=== PATIENT | male | born 1995 | race Caucasian/White ===

== ENCOUNTER 2023-02-03 17:37 | Inpatient (IN) ==
--- NOTE | 2023-02-03 18:19 | XRay Report ---
XR chest 1V portable HISTORY: Chest pain, nonspecific COMPARISON: None. FINDINGS: The lungs are clear. Cardiac silhouette is normal in size. No pleural effusions. No pneumot horax. IMPRESSION: No acute process. ACT 112: Negative or not required by law. Electronically signed by: Carlos Lopez M.D. 02/03/2023 6:17 PM
[2023-02-03 19:04] LABS: Basophils # (auto) 0.05 K/uL (0-0.2); Basophils % (auto) 0.4 %; Eosinophils # (auto) 0.14 K/uL (0-0.50); Eosinophils % (auto) 1.2 %; Hematocrit (blood only) 37.2 % (42.0-52.0); Hemoglobin 12.8 g/dl (14.0-18.0); Immature Granulocytes # (auto) 0.04 K/uL (0.01-0.20); Immature Granulocytes % (auto) 0.3 %; Lymphocytes # (auto) 2.27 K/uL (1.2-3.4); Lymphocytes % (auto) 19.6 %; Mean Corpuscular Hemoglobin 29.4 pg (25.0-34.0); Mean Corpuscular Hgb Conc 34.4 g/dL (32.0-36.0); Mean Corpuscular Volume 85.5 fL (80.0-100.0); Mean Platelet Volume 10.3 fL (9.4-12.4); Monocytes % (auto) 6.9 %; Neutrophils # (auto) 8.28 K/uL (1.40-6.50); Neutrophils % (auto) 71.6 %; Platelet Count 212 K/uL (130-400); RDW Coefficient of Variation 12.4 % (11.5-14.5); RDW Standard Deviation 38.5 fL (36.4-46.3); Red Blood Count 4.35 M/uL (4.70-6.10); White Blood Count 11.58 K/ul (4.8-10.8)
[2023-02-03 19:18] LABS: Albumin Globulin Ratio 1.3 (0.9-2); Albumin Level 4.1 gm/dl (3.4-5.0); BUN Creatinine Ratio 10.3 (10-20); Bilirubin,Total 1.5 mg/dl (0.2-1.0); Calcium 9.1 mg/dl (8.6-10.3); Globulin 3.2 gm/dl (2.5-4.0); Magnesium 1.8 mg/dl (1.7-2.4); Potassium 3.7 mmol/L (3.5-5.1); Total Protein 7.3 gm/dl (6.0-8.3)
[2023-02-03 19:24] LABS: Troponin I High Sensitivity 32.8 pg/ml (0-20)
[2023-02-03 19:34] LABS: INR 1.2 (0.9-1.1); Partial Thromboplastin Time 28.9 Seconds (21.0-31.0)
[2023-02-03 19:38] LABS: Influenza A virus by PCR Negative (Neg); Influenza B virus by PCR Negative (Neg); RSV by PCR Negative (Neg); SARS CoV2 RNA(COVID-19) Ceph NEGATIVE (Negative)
[2023-02-03 19:52] LABS: D Dimer 780 ug/L FEU (0-500)
--- NOTE | 2023-02-03 20:29 | Emergency Department Note ---
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 Home Medications Medication Instructions Recorded Confirmed Type No Known Home Medications 02/03/23 02/03/23 History Allergies Allergy/AdvReac Type Severity Reaction Status Date / Time Sulfa (Sulfonamide Allergy Unknown Verified 02/03/23 22:24 Antibiotics) Past Med/Surg History Medical History No pertinent past medical history Surgical History No pertinent past surgical history Family History (Updated 02/03/23 @ 22:59 by Jorge Rawls MD) Father Coronary heart disease Social History (Updated 02/03/23 @ 22:58 by Jorge Rawls MD) Smoking Status: Current every day smoker packs per day: 1; Hx Alcohol Use: Yes Alcohol Intake Frequency Comment: occasional Preferred Language: Latvian Feels Safe at Home: Yes Physical Exam Vital Signs Vital Signs - 24 hr 02/03/23 17:40 02/03/23 18:07 02/03/23 18:26 Temperature 36.7 C Temperature Source Temporal Artery Scan Pulse Rate 67 67 Pulse Rate [Apical] 64 Pulse Rate from SpO2 Sensor Respiratory Rate 18 18 Respiratory Effort / Characteristics Non-Labored Non-Labored Spontaneous Respiratory Depth Normal Normal Respiratory Pattern Regular Regular Blood Pressure 146/80 H Blood Pressure [Right Radial Artery] 113/45 L Blood Pressure Mean 102 Blood Pressure Mean [Right Radial Artery] 67 Blood Pressure Position Sitting Blood Pressure Position [Right Radial Artery] Lying Pulse Oximetry 97 98 Oxygen Delivery Method Room Air Room Air Sepsis Recent Fever Within 48 Hours No Sepsis New/Unexplained Change in Mental Status No Sepsis Action Taken by Nursing No Action Required 02/03/23 18:26 02/03/23 18:42 02/03/23 21:26 Temperature 38.2 C H Temperature Source Oral Pulse Rate Pulse Rate [Apical] Pulse Rate from SpO2 Sensor Respiratory Rate Respiratory Effort / Characteristics Respiratory Depth Respiratory Pattern Blood Pressure Blood Pressure [Right Radial Artery] Blood Pressure Mean Blood Pressure Mean [Right Radial Artery] Blood Pressure Position Blood Pressure Position [Right Radial Artery] Pulse Oximetry 98 98 Oxygen Delivery Method Room Air Room Air Sepsis Recent Fever Within 48 Hours Sepsis New/Unexplained Change in Mental Status Sepsis Action Taken by Nursing 02/03/23 18:01 02/03/23 18:28 02/03/23 18:28 Temperature Temperature Source Pulse Rate 67 68 Pulse Rate [Apical] Pulse Rate from SpO2 Sensor 67 67 Respiratory Rate 28 H 15 Respiratory Effort / Characteristics Respiratory Depth Respiratory Pattern Blood Pressure 113/45 L Blood Pressure [Right Radial Artery] Blood Pressure Mean 74 Blood Pressure Mean [Right Radial Artery] Blood Pressure Position Blood Pressure Position [Right Radial Artery] Pulse Oximetry 98 97 Oxygen Delivery Method Sepsis Recent Fever Within 48 Hours Sepsis New/Unexplained Change in Mental Status Sepsis Action Taken by Nursing 02/03/23 18:30 02/03/23 19:00 02/03/23 20:30 Temperature Temperature Source Pulse Rate 65 64 65 Pulse Rate [Apical] Pulse Rate from SpO2 Sensor 64 64 65 Respiratory Rate 27 H 12 18 Respiratory Effort / Characteristics Respiratory Depth Respiratory Pattern Blood Pressure 117/56 L 108/64 Blood Pressure [Right Radial Artery] Blood Pressure Mean 76 78 Blood Pressure Mean [Right Radial Artery] Blood Pressure Position Blood Pressure Position [Right Radial Artery] Pulse Oximetry 97 98 98 Oxygen Delivery Method Sepsis Recent Fever Within 48 Hours Sepsis New/Unexplained Change in Mental Status Sepsis Action Taken by Nursing 02/03/23 21:21 02/03/23 21:56 Temperature Temperature Source Pulse Rate 63 65 Pulse Rate [Apical] Pulse Rate from SpO2 Sensor Respiratory Rate 22 Respiratory Effort / Characteristics Respiratory Depth Respiratory Pattern Blood Pressure 102/63 Blood Pressure [Right Radial Artery] Blood Pressure Mean 76 Blood Pressure Mean [Right Radial Artery] Blood Pressure Position Blood Pressure Position [Right Radial Artery] Pulse Oximetry Oxygen Delivery Method Sepsis Recent Fever Within 48 Hours Sepsis New/Unexplained Change in Mental Status Sepsis Action Taken by Nursing Physical Exam GENERAL: oriented to person, place, and time. appears well-developed and well- nourished. HENT: Exam performed. - Head: Normocephalic and atraumatic. EYES: Conjunctivae and EOM are normal. Right eye exhibits no discharge. Left eye exhibits no discharge. No scleral icterus. NECK: Normal range of motion. Neck supple. No JVD present. CV: Normal rate, regular rhythm, normal heart sounds and intact distal pulses. There is no peripheral edema. Palpable radial pulses bue. PULM/CHEST: Effort normal and breath sounds normal. No respiratory distress. No stridor. no wheezes. no rales. ABD: The abdomen is soft. There is no tenderness. NEURO: Motor and sensation grossly intact. SKIN: Skin is warm and dry. He is not diaphoretic. PSYCH: normal mood and affect. Behavior is normal. Judgment and thought content normal. Course Course 1756: The patient was evaluated in room B6. A complete history and physical exam was performed Cardiac monitoring: An order was placed for continuous cardiac monitoring. The monitor shows a rate of 60 with sinus rhythm interpreted by me 2010: Vital signs stable. Labs within normal limits with exception of elevated troponin and elevated D-dimer. CTA of the chest is pending patient's EKGs do show a conduction delay a possible sinus arrhythmia versus heart block. Discussed with cardiology Dr. Rabago who states he does think that the patient has a heart block with a narrow complex. 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 2135: Patient is now febrile. Lyme screen positive. Patient be treated with Rocephin 2 g IV piggyback. 2199: CT of the chest negative. Patient will be admitted to the [facility] team Dr. Rawls aware. Administered Medications Discontinued Medications Acetaminophen (Acetaminophen 500 Mg Tab) 1,000 mg PO NOW STA Stop: 02/03/23 21:32 Last Admin: 02/03/23 21:39 Dose: 1,000 mg Documented By: RUT Ceftriaxone Sodium (Rocephin) 2,000 mg in 70 mls @ 140 mls/hr IV NOW STA Stop: 02/03/23 21:47 Last Infusion: 02/03/23 22:33 Dose: 0 mls/hr Documented By: Admin: 02/03/23 21:43 Dose: 140 mls/hr Documented By: RUT Ioversol (Ioversol 350 Mg 125ml Prefilled Syringe) 119 ml IV ONCE ONE Stop: 02/03/23 20:43 Last Admin: 02/03/23 20:42 Dose: 119 ml Documented By: SHANNAN Medical Decision Making Laboratory Data Attestation: I reviewed the patient's lab results. 02/03/23 17:50 02/03/23 17:50 Labs: Lab Results 02/03/23 02/03/23 02/03/23 Range/Units 17:50 17:50 17:50 WBC 11.58 H (4.8-10.8) K/ul RBC 4.35 L (4.70-6.10) M/uL Hgb 12.8 L (14.0-18.0) g/dl Hct 37.2 L (42.0-52.0) % MCV 85.5 (80.0-100.0) fL MCH 29.4 (25.0-34.0) pg MCHC 34.4 (32.0-36.0) g/dL RDW Std Deviation 38.5 (36.4-46.3) fL RDW Coeff of Debby 12.4 (11.5-14.5) % Plt Count 212 (130-400) K/uL MPV 10.3 (9.4-12.4) fL Immature Gran % (Auto) 0.3 % Neut % (Auto) 71.6 % Lymph % (Auto) 19.6 % [place] % (Auto) 6.9 % Eos % (Auto) 1.2 % Baso % (Auto) 0.4 % Neut # (Auto) 8.28 H (1.40-6.50) K/uL Lymph # (Auto) 2.27 (1.2-3.4) K/uL [place] # (Auto) 0.80 H (0.11-0.59) K/uL Eos # (Auto) 0.14 (0-0.50) K/uL Baso # (Auto) 0.05 (0-0.2) K/uL Immature Gran # (Auto) 0.04 (0.01-0.20) K/uL PT 13.0 H (9.0-12.0) Seconds INR 1.2 H (0.9-1.1) APTT 28.9 (21.0-31.0) Seconds PTT Ratio 1.0 D-Dimer 780 H* (0-500) ug/L FEU Sodium 135 L (136-145) mmol/L Potassium 3.7 (3.5-5.1) mmol/L Chloride 104 (98-107) mmol/L Carbon Dioxide 22 (21-32) mmol/L Anion Gap 9 (3-11) BUN 9 (6-23) mg/dl Creatinine 0.87 (0.6-1.4) mg/dl Est Cr Clr Drug Dosing 192.0 ml/min Est GFR ( Amer) 139.0 ml/min Est GFR (Non-Af Amer) 120.0 ml/min BUN/Creatinine Ratio 10.3 (10-20) Glucose 98 (70-99(Fasting)) mg/dl Calcium 9.1 (8.6-10.3) mg/dl Magnesium 1.8 (1.7-2.4) mg/dl Total Bilirubin 1.5 H (0.2-1.0) mg/dl AST 16 (13-39) U/L ALT 24 (7-52) U/L Alkaline Phosphatase 121 H (34-104) U/L Troponin I High Sens 32.8 H (0-20) pg/ml Total Protein 7.3 (6.0-8.3) gm/dl Albumin 4.1 (3.4-5.0) gm/dl Globulin 3.2 (2.5-4.0) gm/dl Albumin/Globulin Ratio 1.3 (0.9-2) Lyme Disease IgG Ab (Negative) Lyme Disease IgM Ab (Negative) SARS-CoV-2 (PCR) (Negative) Influenza Type A (PCR) (Neg) Influenza Type B (PCR) (Neg) RSV (RT-PCR) (Neg) 02/03/23 02/03/23 Range/Units 17:50 18:42 WBC (4.8-10.8) K/ul RBC (4.70-6.10) M/uL Hgb (14.0-18.0) g/dl Hct (42.0-52.0) % MCV (80.0-100.0) fL MCH (25.0-34.0) pg MCHC (32.0-36.0) g/dL RDW Std Deviation (36.4-46.3) fL RDW Coeff of Debby (11.5-14.5) % Plt Count (130-400) K/uL MPV (9.4-12.4) fL Immature Gran % (Auto) % Neut % (Auto) % Lymph % (Auto) % [place] % (Auto) % Eos % (Auto) % Baso % (Auto) % Neut # (Auto) (1.40-6.50) K/uL Lymph # (Auto) (1.2-3.4) K/uL [place] # (Auto) (0.11-0.59) K/uL Eos # (Auto) (0-0.50) K/uL Baso # (Auto) (0-0.2) K/uL Immature Gran # (Auto) (0.01-0.20) K/uL PT (9.0-12.0) Seconds INR (0.9-1.1) APTT (21.0-31.0) Seconds PTT Ratio D-Dimer (0-500) ug/L FEU Sodium (136-145) mmol/L Potassium (3.5-5.1) mmol/L Chloride (98-107) mmol/L Carbon Dioxide (21-32) mmol/L Anion Gap (3-11) BUN (6-23) mg/dl Creatinine (0.6-1.4) mg/dl Est Cr Clr Drug Dosing ml/min Est GFR ( Amer) ml/min Est GFR (Non-Af Amer) ml/min BUN/Creatinine Ratio (10-20) Glucose (70-99(Fasting)) mg/dl Calcium (8.6-10.3) mg/dl Magnesium (1.7-2.4) mg/dl Total Bilirubin (0.2-1.0) mg/dl AST (13-39) U/L ALT (7-52) U/L Alkaline Phosphatase (34-104) U/L Troponin I High Sens (0-20) pg/ml Total Protein (6.0-8.3) gm/dl Albumin (3.4-5.0) gm/dl Globulin (2.5-4.0) gm/dl Albumin/Globulin Ratio (0.9-2) Lyme Disease IgG Ab Positive A (Negative) Lyme Disease IgM Ab Positive A (Negative) SARS-CoV-2 (PCR) NEGATIVE (Negative) Influenza Type A (PCR) Negative (Neg) Influenza Type B (PCR) Negative (Neg) RSV (RT-PCR) Negative (Neg) ECG Data Attestation: I personally reviewed and interpreted this ECG as follows: Additional Comments: EKG #1 at 1750: Sinus arrhythmia with rate of 67. QRS and QTc intervals within normal limits. No ST elevation or ST depression. EKG #2 at 1848: Sinus arrhythmia with rate of 66. QRS and QTc intervals within normal limits. No ST elevation or ST depression. EKG #3 at 1936: Sinus arrhythmia with conduction delay sinus arrythmia vs heart block. Ventricular rate of 65. QRS [address] elevation or ST depression. MDM Narrative 1757: The patient was evaluated in room B6. A complete history and physical exam was performed Cardiac monitoring: An order was placed for continuous cardiac monitoring. The monitor shows a rate of 60 with sinus rhythm interpreted by me 2010: Vital signs stable. Labs within normal limits with exception of elevated troponin and elevated D-dimer. CTA of the chest is pending patient's EKGs do show a conduction delay a possible sinus arrhythmia versus heart block. Discussed with cardiology Dr. Rabago who states he does think that the patient has a heart block with a narrow complex. 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 2135: Patient is now febrile. Lyme screen positive. Patient be treated with Rocephin 2 g IV piggyback. 2199: CT of the chest negative. Patient will be admitted to the [facility] team Dr. Sinai villela. Impression & Plan Lyme carditis, Heart block Discharge Plan Visit Data Chief Complaint: Shortness of Breath/Dyspnea Stated Complaint: SOB,CHEST TIGHTNESS,DIZZY ED Provider: Brady Coleman Discharge Problem: Lyme carditis, Heart block Patient Disposition: Admitted As Inpatient Forms Stand Alone Forms: [employer] Prescriptions Prescriptions: No Action No Known Home Medications Referrals Referrals: PCP,NO [Primary Care Provider] -
[2023-02-03] MEDS ORDERED: IOVERSOL 350 MG 125mL Prefilled Syringe IV ONE (20:42)
[2023-02-03 21:09] LABS: Lyme Ab IgG w/WB Rflx Positive (Negative); Lyme Ab IgM w/WB Rflx Positive (Negative)
[2023-02-03] MEDS ORDERED: cefTRIAXone SODIUM 2,000 MG/70 ML BAG IV STA (21:18)
[2023-02-03] MEDS ORDERED: ACETAMINOPHEN 500 MG TAB PO STA (21:31)
--- NOTE | 2023-02-03 21:40 | CT Scan Report ---
Exam(s): CTA CHEST IV Amt: 119ml EXAM: CT Angiography Chest With Intravenous Contrast CLINICAL HISTORY: Reason for exam: ro Pe. TECHNIQUE: Axial computed tomographic angiography images of the chest with intravenous contrast. CTDI is 28.14 mGy and DLP is 908.81 mGy-cm. Automated exposure control was utilized for the study. A dose lowering technique was utilized adhering to the principles of ALARA. MIP reconstructed images were created and reviewed. COMPARISON: No relevant prior studies available. FINDINGS: Pulmonary arteries: No evidence for pulmonary embolism. Aorta: No acute findings. No thoracic aortic aneurysm. Lungs: Expiratory lung volumes. Scattered ground-glass areas of attenuation are noted. No focal airspace consolidation. Pleural space: Unremarkable. No significant effusion. No pneumothorax. Heart: Unremarkable. No cardiomegaly. No significant pericardial effusion. Mediastinum: Trace residual thymic tissue noted. Bones/joints: No acute fracture. No dislocation. Soft tissues: Unremarkable. Lymph nodes: Unremarkable. No enlarged lymph nodes. IMPRESSION: 1. No evidence for pulmonary embolism. 2. Scattered ground-glass areas of attenuation are presumed subsegmental atelectasis and related to expiratory lung volumes. No focal airspace consolidation. No pleural effusion or pneumothorax. Electronically signed by: Salvatore Veronica MD 02/03/23 21:39 PM
--- NOTE | 2023-02-03 23:04 | History & Physical Report ---
Date of Service February 03, 2023 Assessment & Plan (1) Lyme carditis: Plan: 26-year-old old male presents with shortness with exertion chest tightness and palpitations and EKG showing sinus sinus arrhythmia versus heart block. ER discussed with the cardiology and guardian thinks most heart block and Lyme carditis and his Lyme screen came back positive. Lyme carditis Lyme screen positive Sinus arrhythmia versus heart block started on IV Rocephin and Doxy D-dimer is elevated but CT chest unremarkable Mild elevation of troponin most likely demand ischemia we will follow serial enzymes and echocardiogram Close monitoring telemetry floor DVT prophylaxis SCDs Disposition telemetry floor Full code History of Present Illness Chief Complaint: Shortness of breath and chest pains Primary Care Provider: NO PCP 27-year-old male with no significant past medical history presents with shortness of breath on exertion, dizziness and chest tightness since yesterday. When he stays to ambulate he feels like he is heart is pounding. He had temp spike in the ER. Lyme screen came back positive. Patient denies any tick bites but [place]. Denies any headache. Has some neck pain since yesterday. Vision is okay. No runny nose or sore throat or cough. No nausea. Appetite is okay. No abdominal pain. Normal bowel and bladder movements. Allergies Allergy/AdvReac Type Severity Reaction Status Date / Time Sulfa (Sulfonamide Allergy Unknown Verified 02/03/23 22:24 Antibiotics) Home Medications Medication Instructions Recorded Confirmed Type No Known Home Medications 02/03/23 02/03/23 History Past Med/Surg History Medical History No pertinent past medical history Surgical History No pertinent past surgical history Family History (Updated 02/03/23 @ 22:59 by Jorge Rawls MD) Father Coronary heart disease Social History (Updated 02/03/23 @ 22:58 by Jorge Rawls MD) Smoking Status: Current every day smoker packs per day: 1; Hx Alcohol Use: Yes Alcohol Intake Frequency Comment: occasional Preferred Language: Bengali Feels Safe at Home: Yes Review of Systems Review of Systems: All systems reviewed & are unremarkable except as noted in Subjective Physical Exam Physical Exam: General- Not in distress Head- atraumatic Eyes- PERRLA ENT- oropharynx clear Neck- supple, no JVD, Lungs- clear to auscultation and percussion, no added sounds Heart- regular rhythm; no murmur, no gallop, Abdomen- normal bowel sounds, soft, nontender, no distension Extremities- no pretibial edema, no erythema seen Neuro- alert, oriented x 3; PERRL, no facial palsy; no dysarthria; moves extremities. Skin- warm & dry blotches of erythematosus rash seen on lower extremities Results & Data Results & Data Vital Signs (Past 12 Hours) Vital Signs Temp Pulse Pulse Resp BP BP Pulse Ox 02/03/23 21:56 65 02/03/23 21:21 63 22 102/63 02/03/23 20:30 65 18 108/64 98 02/03/23 19:00 64 12 117/56 L 98 02/03/23 18:30 65 27 H 97 02/03/23 18:28 113/45 L 02/03/23 18:28 68 15 97 02/03/23 18:01 67 28 H 98 02/03/23 21:26 38.2 C H 02/03/23 18:42 98 02/03/23 18:26 98 02/03/23 18:26 64 18 113/45 L 98 02/03/23 18:07 67 02/03/23 17:40 36.7 C 67 18 146/80 H 97 O2 Del Method 02/03/23 21:56 02/03/23 21:21 02/03/23 20:30 02/03/23 19:00 02/03/23 18:30 02/03/23 18:28 02/03/23 18:28 02/03/23 18:01 02/03/23 21:26 02/03/23 18:42 Room Air 02/03/23 18:26 Room Air 02/03/23 18:26 Room Air 02/03/23 18:07 02/03/23 17:40 Room Air Diagnostic Findings Laboratory Results WBC 11.58 K/ul (4.8-10.8) H 02/03/23 17:50 RBC 4.35 M/uL (4.70-6.10) L 02/03/23 17:50 Hgb 12.8 g/dl (14.0-18.0) L 02/03/23 17:50 Hct 37.2 % (42.0-52.0) L 02/03/23 17:50 MCV 85.5 fL (80.0-100.0) 02/03/23 17:50 MCH 29.4 pg (25.0-34.0) 02/03/23 17:50 MCHC 34.4 g/dL (32.0-36.0) 02/03/23 17:50 RDW Std Deviation 38.5 fL (36.4-46.3) 02/03/23 17:50 RDW Coeff of Debby 12.4 % (11.5-14.5) 02/03/23 17:50 Plt Count 212 K/uL (130-400) 02/03/23 17:50 MPV 10.3 fL (9.4-12.4) 02/03/23 17:50 Immature Gran % (Auto) 0.3 % 02/03/23 17:50 Neut % (Auto) 71.6 % 02/03/23 17:50 Lymph % (Auto) 19.6 % 02/03/23 17:50 [place] % (Auto) 6.9 % 02/03/23 17:50 Eos % (Auto) 1.2 % 02/03/23 17:50 Baso % (Auto) 0.4 % 02/03/23 17:50 Neut # (Auto) 8.28 K/uL (1.40-6.50) H 02/03/23 17:50 Lymph # (Auto) 2.27 K/uL (1.2-3.4) 02/03/23 17:50 [place] # (Auto) 0.80 K/uL (0.11-0.59) H 02/03/23 17:50 Eos # (Auto) 0.14 K/uL (0-0.50) 02/03/23 17:50 Baso # (Auto) 0.05 K/uL (0-0.2) 02/03/23 17:50 Immature Gran # (Auto) 0.04 K/uL (0.01-0.20) 02/03/23 17:50 PT 13.0 Seconds (9.0-12.0) H 02/03/23 17:50 INR 1.2 (0.9-1.1) H 02/03/23 17:50 APTT 28.9 Seconds (21.0-31.0) 02/03/23 17:50 PTT Ratio 1.0 02/03/23 17:50 D-Dimer 780 ug/L FEU (0-500) H* 02/03/23 17:50 Sodium 135 mmol/L (136-145) L 02/03/23 17:50 Potassium 3.7 mmol/L (3.5-5.1) 02/03/23 17:50 Chloride 104 mmol/L (98-107) 02/03/23 17:50 Carbon Dioxide 22 mmol/L (21-32) 02/03/23 17:50 Anion Gap 9 (3-11) 02/03/23 17:50 BUN 9 mg/dl (6-23) 02/03/23 17:50 Creatinine 0.87 mg/dl (0.6-1.4) 02/03/23 17:50 Est Cr Clr Drug Dosing 192.0 ml/min 02/03/23 17:50 Est GFR ( Amer) 139.0 ml/min 02/03/23 17:50 Est GFR (Non-Af Amer) 120.0 ml/min 02/03/23 17:50 BUN/Creatinine Ratio 10.3 (10-20) 02/03/23 17:50 Glucose 98 mg/dl (70-99(Fasting)) 02/03/23 17:50 Calcium 9.1 mg/dl (8.6-10.3) 02/03/23 17:50 Magnesium 1.8 mg/dl (1.7-2.4) 02/03/23 17:50 Total Bilirubin 1.5 mg/dl (0.2-1.0) H 02/03/23 17:50 AST 16 U/L (13-39) 02/03/23 17:50 ALT 24 U/L (7-52) 02/03/23 17:50 Alkaline Phosphatase 121 U/L (34-104) H 02/03/23 17:50 Troponin I High Sens 32.8 pg/ml (0-20) H 02/03/23 17:50 Total Protein 7.3 gm/dl (6.0-8.3) 02/03/23 17:50 Albumin 4.1 gm/dl (3.4-5.0) 02/03/23 17:50 Globulin 3.2 gm/dl (2.5-4.0) 02/03/23 17:50 Albumin/Globulin Ratio 1.3 (0.9-2) 02/03/23 17:50 Lyme Disease IgG Ab Positive (Negative) A 02/03/23 17:50 Lyme Disease IgM Ab Positive (Negative) A 02/03/23 17:50 SARS-CoV-2 (PCR) NEGATIVE (Negative) 02/03/23 18:42 Influenza Type A (PCR) Negative (Neg) 02/03/23 18:42 Influenza Type B (PCR) Negative (Neg) 02/03/23 18:42 RSV (RT-PCR) Negative (Neg) 02/03/23 18:42 Impressions Chest X-Ray 02/03/23 17:42 XR chest 1V portable HISTORY: Chest pain, nonspecific COMPARISON: None. FINDINGS: The lungs are clear. Cardiac silhouette is normal in size. No pleural effusions. No pneumothorax. IMPRESSION: No acute process. ACT 112: Negative or not required by law. Electronically signed by: Carlos Lopez M.D. 02/03/2023 6:17 PM Chest CTA 02/03/23 19:54 Exam(s): CTA CHEST IV Amt: 119ml EXAM: CT Angiography Chest With Intravenous Contrast CLINICAL HISTORY: Reason for exam: ro Pe. TECHNIQUE: Axial computed tomographic angiography images of the chest with intravenous contrast. CTDI is 28.14 mGy and DLP is 908.81 mGy-cm. Automated exposure control was utilized for the study. A dose lowering technique was utilized adhering to the principles of ALARA. MIP reconstructed images were created and reviewed. COMPARISON: No relevant prior studies available. FINDINGS: Pulmonary arteries: No evidence for pulmonary embolism. Aorta: No acute findings. No thoracic aortic aneurysm. Lungs: Expiratory lung volumes. Scattered ground-glass areas of attenuation are noted. No focal airspace consolidation. Pleural space: Unremarkable. No significant effusion. No pneumothorax. Heart: Unremarkable. No cardiomegaly. No significant pericardial effusion. Mediastinum: Trace residual thymic tissue noted. Bones/joints: No acute fracture. No dislocation. Soft tissues: Unremarkable. Lymph nodes: Unremarkable. No enlarged lymph nodes. IMPRESSION: 1. No evidence for pulmonary embolism. 2. Scattered ground-glass areas of attenuation are presumed subsegmental atelectasis and related to expiratory lung volumes. No focal airspace consolidation. No pleural effusion or pneumothorax. Electronically signed by: Salvatore Veronica MD 02/03/23 21:39 PM ECG Additional Comments: ECG sinus arrhythmia with A-V dissociation and actually junctional rhythm rate of 67 Code Status & VTE Plan VTE Prophylaxis Plan VTE Prophylaxis will be ordered: Yes
[2023-02-04] MEDS ORDERED: NITROGLYCERIN SL 0.4 MG/TAB TAB SL PRN (00:20)
[2023-02-04] MEDS: SODIUM CHLORIDE 0.9% 1000ML 1,000 ML IV SCH ×2 (00:38→16:25)
[2023-02-04] MEDS: DOXYCYCLINE HYCLATE 100 MG in DEXTROSE 5% 100 ML IV SCH ×3 (01:11→20:41)
[2023-02-04 06:16] LABS: Basophils # (auto) 0.04 K/uL (0-0.2); Basophils % (auto) 0.4 %; Eosinophils # (auto) 0.12 K/uL (0-0.50); Eosinophils % (auto) 1.2 %; Hematocrit (blood only) 38.4 % (42.0-52.0); Hemoglobin 12.8 g/dl (14.0-18.0); Immature Granulocytes # (auto) 0.04 K/uL (0.01-0.20); Immature Granulocytes % (auto) 0.4 %; Lymphocytes # (auto) 1.68 K/uL (1.2-3.4); Lymphocytes % (auto) 16.2 %; Mean Corpuscular Hgb Conc 33.3 g/dL (32.0-36.0); Mean Corpuscular Volume 87.1 fL (80.0-100.0); Mean Platelet Volume 10.3 fL (9.4-12.4); Monocytes # (auto) 0.68 K/uL (0.11-0.59); Monocytes % (auto) 6.6 %; Neutrophils # (auto) 7.79 K/uL (1.40-6.50); Neutrophils % (auto) 75.2 %; Platelet Count 203 K/uL (130-400); RDW Coefficient of Variation 12.8 % (11.5-14.5); RDW Standard Deviation 40.4 fL (36.4-46.3); Red Blood Count 4.41 M/uL (4.70-6.10); White Blood Count 10.35 K/ul (4.8-10.8)
[2023-02-04 06:22] LABS: BUN Creatinine Ratio 11.8 (10-20); Calcium 8.9 mg/dl (8.6-10.3); Creatinine Clr Calc Pharmacy 179.6 ml/min; Est GFR (African American) 131.8 ml/min; Est GFR (Non-African American) 113.7 ml/min; Magnesium 1.9 mg/dl (1.7-2.4); Potassium 4.3 mmol/L (3.5-5.1)
[2023-02-04 06:33] LABS: Troponin I High Sensitivity 22.4 pg/ml (0-20)
--- NOTE | 2023-02-04 08:55 | Cardiology Consultation ---
Date of Consultation February 04, 2023 Assessment & Plan (1) Heart block: (2) Lyme carditis: Plan 27 year old male admitted with activity related shortness of breath, dizziness, chest tightness, heart pounding, and shortness of breath. Examination with erythema migrans type rash on the mid left back with workup highly suggestive of Lyme disease with associated atrioventricular block and mild myopericarditis. EKG's with AV dissociation with accelerated junctional rhythm. Echocardiography OK. Patient requires hospitalization, continuous telemetry monitoring, and IV antibiotic administration (2 grams Ceftriaxone) until the high degree AV block resolves and the TN interval is less than 300 msec then oral doxycycline x 21 days. Check EKG daily. Recommend pacer pads on patient. Temporary venous pacer not needed at this point. Supervising Physician Co-Signing Physician Notes Attending Staff: Pt was seen and examined with Ap Staff. Concur with observations and plans. 50 min spent addressing patient's challenges, educating and/or advancing daily plan of care 27 yo man Bradycardia EKG compatible with Complete Heart Block w/ junctional escape SBP is WNL No syncope Lyme IgM + Target lesion on back Plans for ABX to treat acute Lyme Disease ECHO - preliminary - no evidence of Cardiomyopathy of severe valvular pathology No evidence of Heart Failure No Pauses on Telemetry Plans to place PADs in the event of emergent need for transcutaneous pacing Atropine at bedside Limited ambulation DVT PPX K+ goal 4.5-5 Mag++ goal >2 Check TSH Surjit Srivastava History of Present Illness Reason for Consultation: Lyme carditis Requesting Physician: Dr. Cristiano Mosley Attending Physician: Cristiano Mosley MD History of Present Illness Mr. Chacorta Kaiser is a very pleasant 27 year old male who presented to the [facility] ER on 02/03/2023 with complaints of activity related shortness of breath, dizziness, chest tightness, heart pounding, and shortness of breath that have progressed over the last couple of days. He is comfortable at rest. EKG on presentation revealed AV dissociation with an accelerated junctional rhythm. A second EKG on 02/03/2023 revealed AV dissociation with an accelerated junctional rhythm. High sensitivity Troponin I elevated at 32.8 then 22.4 pg/mL. Chest x- ray was without acute process. Elevated D-dimer lead to a CTA of the chest showing no evidence for pulmonary embolism, revealing scattered ground-glass areas of attenuation are presumed subsegmental atelectasis and related to expiratory lung volumes. No focal airspace consolidation. No pleural effusion or pneumothorax. No syncope. Patient denies fevers or chills though was notably febrile at 38.2 in the ER and 37.7 today at 07:35. Denies tick bit or rash. He is a reformed smoker as of three days ago, smoking 1 ppd since the age of 18. No alcohol. No illegal drug use. No OTC therapies or medications. + History of a heart murmur as a child. No other cardiac history. Past Medical and Surgical History: None. Family History: + For CAD in his father, detailed unknown. Social History: Reformed smoker as of 3 days ago, smoking 1 ppd since the age of 18. Rare social alcohol. No illegal drug use. . Two children. 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 Complete Review of Systems: Constitutional: No change in weight. Denies fevers or chills. HENT: No amaurosis fugax. Ear infections as a child. Pulmonary: No history of sleep apnea, pulmonary embolism, or asthma. Cardiac: Heart murmur as a child. GI/Abd: No dysphagia, pain, melana or hematochezia. No significant heartburn. Denies liver problems. Denies kidney problems Vascular: Negative. Hematologic: No known coagulation disorder, anemia, or abnormal bleeding. Musculoskeletal: Hip pain last month, resolved. Skin: No rash. Neurologic: No history of seizure. No history of TIA. No CVA. Male : Negative. Endocrine: Denies history of thyroid problems or diabetes. Allergies Allergy/AdvReac Type Severity Reaction Status Date / Time Sulfa (Sulfonamide Allergy Unknown Verified 02/03/23 22:24 Antibiotics) Home Medications Medication Instructions Recorded Confirmed Type No Known Home Medications 02/03/23 02/03/23 History Patient History Medical History No pertinent past medical history Surgical History No pertinent past surgical history Family History Father Coronary heart disease Social History Smoking Status: Former smoker packs per day: 1; Smoking End Date: 2 days ago; Hx Alcohol Use: Yes Alcohol type: beer and hard liquor Alcohol Intake Frequency Comment: occasional Hx Substance Use: No Preferred Language: Senegalese Communication Ability: Effective Cutter Machine Required: No Beliefs That Will Affect Care: None Current Living Situation: Spouse Other Information That Helps Us Care for You: No Feels Safe at Home: Yes Safety Concerns: Feels Safe At This Time Review of Systems Review of Systems: Complete Review of Systems is as stated above, negative, or noncontributory. Physical Exam Physical Exam: General: A&Ox3. NAD. Skin: + Erythema migrans rash on left mid to upper back. HENT: Normocephalic. Atraumatic. Eyes: PER. Conjunctiva pink, sclera clear. Neck: No carotid bruits. Normal JVP. No HJR. Heart: Somewhat distant heart sounds. Irregular with an occasional ectopic beat, 60 bpm. No murmur. PMI is nondisplaced. Lungs: Clear to auscultation. Abdomen: +BS. Soft. Nontender. No masses or organomegaly. Extremities: + Two circular rashes on the left lower extremity. No clubbing. No cyanosis. No edema. Limited neurological examination is without focal deficits. Pulses: radial=2/4, posterior tibial=2/4. Results & Data Vital Signs (Past 12 Hours) Vital Signs Temp Pulse Pulse Resp BP BP Pulse Ox 02/04/23 07:35 37.7 C H 98 H 20 95/67 L 97 02/04/23 07:35 73 02/04/23 03:06 36.7 C 67 20 130/80 96 02/04/23 00:20 63 02/04/23 00:16 37.1 C 63 18 137/76 98 02/03/23 23:30 63 24 116/54 L 97 02/03/23 23:00 62 23 97 02/03/23 22:31 64 22 123/49 L 98 02/03/23 22:30 64 21 98 02/03/23 22:00 64 23 112/61 98 02/03/23 21:30 64 15 101/57 L 100 02/03/23 21:56 65 02/03/23 21:21 63 22 102/63 08/04/23 21:26 38.2 C H O2 Del Method 02/04/23 07:35 Room Air 02/04/23 07:35 02/04/23 03:06 Room Air 02/04/23 00:20 02/04/23 00:16 Room Air 02/03/23 23:30 02/03/23 23:00 02/03/23 22:31 02/03/23 22:30 02/03/23 22:00 02/03/23 21:30 02/03/23 21:56 02/03/23 21:21 02/03/23 21:26 Laboratory Results Cardiac Enzymes 02/03/23 02/04/23 Range/Units 17:50 05:37 AST 16 (13-39) U/L Troponin I High Sens 32.8 H 22.4 H D (0-20) pg/ml Coagulation 02/03/23 Range/Units 17:50 PT 13.0 H (9.0-12.0) Seconds APTT 28.9 (21.0-31.0) Seconds CBC 02/03/23 02/04/23 Range/Units 17:50 05:37 WBC 11.58 H 10.35 (4.8-10.8) K/ul RBC 4.35 L 4.41 L (4.70-6.10) M/uL Hgb 12.8 L 12.8 L (14.0-18.0) g/dl Hct 37.2 L 38.4 L (42.0-52.0) % Plt Count 212 203 (130-400) K/uL Neut # (Auto) 8.28 H 7.79 H (1.40-6.50) K/uL Lymph # (Auto) 2.27 1.68 (1.2-3.4) K/uL [place] # (Auto) 0.80 H 0.68 H (0.11-0.59) K/uL Eos # (Auto) 0.14 0.12 (0-0.50) K/uL Baso # (Auto) 0.05 0.04 (0-0.2) K/uL Comprehensive Metabolic Panel 02/03/23 02/04/23 Range/Units 17:50 05:37 Sodium 135 L 137 (136-145) mmol/L Potassium 3.7 4.3 (3.5-5.1) mmol/L Chloride 104 105 (98-107) mmol/L Carbon Dioxide 22 27 (21-32) mmol/L BUN 9 11 (6-23) mg/dl Creatinine 0.87 0.93 (0.6-1.4) mg/dl Glucose 98 101 H (70-99(Fasting)) mg/dl Calcium 9.1 8.9 (8.6-10.3) mg/dl AST 16 (13-39) U/L ALT 24 (7-52) U/L Alkaline Phosphatase 121 H (34-104) U/L Total Protein 7.3 (6.0-8.3) gm/dl Albumin 4.1 (3.4-5.0) gm/dl Intake and Output 02/03/23 02/04/23 02/04/23 22:59 06:59 14:59 Intake Total 70 / 180 110 / 180 Balance 70 / 180 110 / 180 Intake: IV 70 / 180 110 / 180 Doxycycline Hyclate 100 mg In 110 / 110 Dextrose 5% 100 ml @ 50 mls/hr IV Q12H [facility] Rx#:[id number] cefTRIAXone SODIUM 2,000 mg In 70 / 70 70 ml @ 140 mls/hr IV NOW STA Rx#:[id number] Other: # Unmeasured Voids 1 Weight 145 kg 145 kg Weight Measurement Method Chair Scale Built in [facility]
[2023-02-04] MEDS ORDERED: ATROPINE SULFATE 0.1 MG/ML 10ML SYR IV ONE (16:58)
--- NOTE | 2023-02-04 17:29 | Hospitalist Progress Note ---
Date of Service February 04, 2023 Assessment & Plan (1) Heart block: (2) Lyme carditis: Plan: Lyme carditis Heart block 27 yo M presents with shortness with exertion chest tightness and palpitations and EKG w/ heart block. ER discussed with the cardiology - Lyme carditis and pt's Lyme screen came back positive. Lyme carditis Lyme screen positive ECG c/e complete heart block w/junctional rhythm started on IV Rocephin and Doxy on admission, will continue D-dimer is elevated but CT chest unremarkable Mild elevation of troponin most likely demand ischemia we will follow serial enzymes and echocardiogram Echo obtained -mild concentric LVH. LV wall motion is abnormal. LVEF 55 to 60%. RV is normal in size and function. There is no pericardial effusion. There is no significant valvular disease. PADs placed in the event of emergent need for transcutaneous pacing Atropine at bedside Limited ambulation Keep K>4, Mag >2 Pt's HR down to 40s - discussed further w/ cardiology and recommend transferring to ICU in case he needs dopamine or temporary venous pacemaker. Discussed w/ poultry debeaker and will transfer pt to ICU now. DVT prophylaxis SCDs Full code Admission and Anticipated Discharge Date Admission Date: February 03, 2023 Subjective Pt seen in follow up of lyme carditis , complete heart block Currently laying in bed in NAD denies any chest pain, shortness of breath, palpitations at this time. No dizziness, only been out of bed to bathroom Pt was started on IV Abx on admission and was seen by cardiology HR sometimes in 40s - discussed further w/ cardiology - recommend ICU for poss. dopamine or transcut venous pacer -discussed w/ poultry debeaker and pt will be transferred to icu Review of Systems Review of Systems: All systems reviewed & are unremarkable except as noted in Subjective Physical Exam Physical Exam: General- young obe se M in NAD Head- atraumatic Eyes - PERRLA ENT- [place] pharynx clear Nec k- supple, no JVD Lungs- clear to a uscultation and pe rcussion, no added sounds Heart- re gular rhythm; no m urmur Abdomen- no rmal bowel sounds, soft, nontender, no distension Ext remities- no preti bial edema, no hawk thema seen Neuro- alert, oriented x 3; PERRL, no fac ial palsy; no dysa rthria; moves extr emities. Skin- wa rm & dry blotches of erythematosus r marely seen on lower extremities Results & Data Results & Data Vital Signs (Past 12 Hours) Vital Signs Temp Pulse Pulse Resp BP BP Pulse Ox 02/04/23 17:04 63 132/77 02/04/23 15:26 37.4 C 50 L 20 96/48 L 97 02/04/23 10:41 37.3 C 71 20 125/69 97 02/04/23 07:35 37.7 C H 98 H 20 95/67 L 97 02/04/23 07:35 73 O2 Del Method 02/04/23 17:04 02/04/23 15:26 Room Air 02/04/23 10:41 Room Air 02/04/23 07:35 Room Air 02/04/23 07:35 Laboratory Results 02/04/23 02/04/23 02/04/23 Range/Units 16:44 11:08 11:08 WBC (4.8-10.8) K/ul RBC (4.70-6.10) M/uL Hgb (14.0-18.0) g/dl Hct (42.0-52.0) % MCV (80.0-100.0) fL MCH (25.0-34.0) pg MCHC (32.0-36.0) g/dL RDW Std Deviation (36.4-46.3) fL RDW Coeff of Debby (11.5-14.5) % Plt Count (130-400) K/uL MPV (9.4-12.4) fL Immature Gran % (Auto) % Neut % (Auto) % Lymph % (Auto) % [place] % (Auto) % Eos % (Auto) % Baso % (Auto) % Neut # (Auto) (1.40-6.50) K/uL Lymph # (Auto) (1.2-3.4) K/uL [place] # (Auto) (0.11-0.59) K/uL Eos # (Auto) (0-0.50) K/uL Baso # (Auto) (0-0.2) K/uL Immature Gran # (Auto) (0.01-0.20) K/uL PT (9.0-12.0) Seconds INR (0.9-1.1) APTT (21.0-31.0) Seconds PTT Ratio D-Dimer (0-500) ug/L FEU Sodium (136-145) mmol/L Potassium (3.5-5.1) mmol/L Chloride (98-107) mmol/L Carbon Dioxide (21-32) mmol/L Anion Gap (3-11) BUN (6-23) mg/dl Creatinine (0.6-1.4) mg/dl Est Cr Clr Drug Dosing ml/min Est GFR ( Amer) ml/min Est GFR (Non-Af Amer) ml/min BUN/Creatinine Ratio (10-20) Glucose (70-99(Fasting)) mg/dl Calcium (8.6-10.3) mg/dl Magnesium (1.7-2.4) mg/dl Total Bilirubin (0.2-1.0) mg/dl AST (13-39) U/L ALT (7-52) U/L Alkaline Phosphatase (34-104) U/L Troponin I High Sens 24.1 H 26.4 H (0-20) pg/ml Total Protein (6.0-8.3) gm/dl Albumin (3.4-5.0) gm/dl Globulin (2.5-4.0) gm/dl Albumin/Globulin Ratio (0.9-2) TSH 0.937 (0.300-4.500) uIu/ml Lyme Disease IgG Ab (Negative) Lyme IgG (Western Blot) Lyme IgG 18 kDa Band Lyme IgG 23 kDa Band Lyme IgG 28 kDa Band Lyme IgG 30 kDa Band Lyme IgG 39 kDa Band Lyme IgG 41 kDa Band Lyme IgG 45 kDa Band Lyme IgG 58 kDa Band Lyme IgG 66 kDa Band Lyme IgG 93 kDa Band Lyme IgM Ab (WB) Lyme Disease IgM Ab (Negative) Lyme IgM 23 kDa Band Lyme IgM 39 kDa Band Lyme IgM 41 kDa Band SARS-CoV-2 (PCR) (Negative) Influenza Type A (PCR) (Neg) Influenza Type B (PCR) (Neg) RSV (RT-PCR) (Neg) 02/04/23 02/04/23 02/03/23 Range/Units 05:37 05:37 18:42 WBC 10.35 (4.8-10.8) K/ul RBC 4.41 L (4.70-6.10) M/uL Hgb 12.8 L (14.0-18.0) g/dl Hct 38.4 L (42.0-52.0) % MCV 87.1 (80.0-100.0) fL MCH 29.0 (25.0-34.0) pg MCHC 33.3 (32.0-36.0) g/dL RDW Std Deviation 40.4 (36.4-46.3) fL RDW Coeff of Debby 12.8 (11.5-14.5) % Plt Count 203 (130-400) K/uL MPV 10.3 (9.4-12.4) fL Immature Gran % (Auto) 0.4 % Neut % (Auto) 75.2 % Lymph % (Auto) 16.2 % [place] % (Auto) 6.6 % Eos % (Auto) 1.2 % Baso % (Auto) 0.4 % Neut # (Auto) 7.79 H (1.40-6.50) K/uL Lymph # (Auto) 1.68 (1.2-3.4) K/uL [place] # (Auto) 0.68 H (0.11-0.59) K/uL Eos # (Auto) 0.12 (0-0.50) K/uL Baso # (Auto) 0.04 (0-0.2) K/uL Immature Gran # (Auto) 0.04 (0.01-0.20) K/uL PT (9.0-12.0) Seconds INR (0.9-1.1) APTT (21.0-31.0) Seconds PTT Ratio D-Dimer (0-500) ug/L FEU Sodium 137 (136-145) mmol/L Potassium 4.3 (3.5-5.1) mmol/L Chloride 105 (98-107) mmol/L Carbon Dioxide 27 (21-32) mmol/L Anion Gap 5 (3-11) BUN 11 (6-23) mg/dl Creatinine 0.93 (0.6-1.4) mg/dl Est Cr Clr Drug Dosing 179.6 ml/min Est GFR ( Amer) 131.8 ml/min Est GFR (Non-Af Amer) 113.7 ml/min BUN/Creatinine Ratio 11.8 (10-20) Glucose 101 H (70-99(Fasting)) mg/dl Calcium 8.9 (8.6-10.3) mg/dl Magnesium 1.9 (1.7-2.4) mg/dl Total Bilirubin (0.2-1.0) mg/dl AST (13-39) U/L ALT (7-52) U/L Alkaline Phosphatase (34-104) U/L Troponin I High Sens 22.4 H D (0-20) pg/ml Total Protein (6.0-8.3) gm/dl Albumin (3.4-5.0) gm/dl Globulin (2.5-4.0) gm/dl Albumin/Globulin Ratio (0.9-2) TSH (0.300-4.500) uIu/ml Lyme Disease IgG Ab (Negative) Lyme IgG (Western Blot) Lyme IgG 18 kDa Band Lyme IgG 23 kDa Band Lyme IgG 28 kDa Band Lyme IgG 30 kDa Band Lyme IgG 39 kDa Band Lyme IgG 41 kDa Band Lyme IgG 45 kDa Band Lyme IgG 58 kDa Band Lyme IgG 66 kDa Band Lyme IgG 93 kDa Band Lyme IgM Ab (WB) Lyme Disease IgM Ab (Negative) Lyme IgM 23 kDa Band Lyme IgM 39 kDa Band Lyme IgM 41 kDa Band SARS-CoV-2 (PCR) NEGATIVE (Negative) Influenza Type A (PCR) Negative (Neg) Influenza Type B (PCR) Negative (Neg) RSV (RT-PCR) Negative (Neg) 02/03/23 02/03/23 02/03/23 Range/Units 17:50 17:50 17:50 WBC (4.8-10.8) K/ul RBC (4.70-6.10) M/uL Hgb (14.0-18.0) g/dl Hct (42.0-52.0) % MCV (80.0-100.0) fL MCH (25.0-34.0) pg MCHC (32.0-36.0) g/dL RDW Std Deviation (36.4-46.3) fL RDW Coeff of Debby (11.5-14.5) % Plt Count (130-400) K/uL MPV (9.4-12.4) fL Immature Gran % (Auto) % Neut % (Auto) % Lymph % (Auto) % [place] % (Auto) % Eos % (Auto) % Baso % (Auto) % Neut # (Auto) (1.40-6.50) K/uL Lymph # (Auto) (1.2-3.4) K/uL [place] # (Auto) (0.11-0.59) K/uL Eos # (Auto) (0-0.50) K/uL Baso # (Auto) (0-0.2) K/uL Immature Gran # (Auto) (0.01-0.20) K/uL PT (9.0-12.0) Seconds INR (0.9-1.1) APTT (21.0-31.0) Seconds PTT Ratio D-Dimer (0-500) ug/L FEU Sodium 135 L (136-145) mmol/L Potassium 3.7 (3.5-5.1) mmol/L Chloride 104 (98-107) mmol/L Carbon Dioxide 22 (21-32) mmol/L Anion Gap 9 (3-11) BUN 9 (6-23) mg/dl Creatinine 0.87 (0.6-1.4) mg/dl Est Cr Clr Drug Dosing 192.0 ml/min Est GFR ( Amer) 139.0 ml/min Est GFR (Non-Af Amer) 120.0 ml/min BUN/Creatinine Ratio 10.3 (10-20) Glucose 98 (70-99(Fasting)) mg/dl Calcium 9.1 (8.6-10.3) mg/dl Magnesium 1.8 (1.7-2.4) mg/dl Total Bilirubin 1.5 H (0.2-1.0) mg/dl AST 16 (13-39) U/L ALT 24 (7-52) U/L Alkaline Phosphatase 121 H (34-104) U/L Troponin I High Sens 32.8 H (0-20) pg/ml Total Protein 7.3 (6.0-8.3) gm/dl Albumin 4.1 (3.4-5.0) gm/dl Globulin 3.2 (2.5-4.0) gm/dl Albumin/Globulin Ratio 1.3 (0.9-2) TSH (0.300-4.500) uIu/ml Lyme Disease IgG Ab Positive A (Negative) Lyme IgG (Western Blot) Pending Lyme IgG 18 kDa Band Pending Lyme IgG 23 kDa Band Pending Lyme IgG 28 kDa Band Pending Lyme IgG 30 kDa Band Pending Lyme IgG 39 kDa Band Pending Lyme IgG 41 kDa Band Pending Lyme IgG 45 kDa Band Pending Lyme IgG 58 kDa Band Pending Lyme IgG 66 kDa Band Pending Lyme IgG 93 kDa Band Pending Lyme IgM Ab (WB) Pending Lyme Disease IgM Ab Positive A (Negative) Lyme IgM 23 kDa Band Pending Lyme IgM 39 kDa Band Pending Lyme IgM 41 kDa Band Pending SARS-CoV-2 (PCR) (Negative) Influenza Type A (PCR) (Neg) Influenza Type B (PCR) (Neg) RSV (RT-PCR) (Neg) 02/03/23 02/03/23 Range/Units 17:50 17:50 WBC 11.58 H (4.8-10.8) K/ul RBC 4.35 L (4.70-6.10) M/uL Hgb 12.8 L (14.0-18.0) g/dl Hct 37.2 L (42.0-52.0) % MCV 85.5 (80.0-100.0) fL MCH 29.4 (25.0-34.0) pg MCHC 34.4 (32.0-36.0) g/dL RDW Std Deviation 38.5 (36.4-46.3) fL RDW Coeff of Debby 12.4 (11.5-14.5) % Plt Count 212 (130-400) K/uL MPV 10.3 (9.4-12.4) fL Immature Gran % (Auto) 0.3 % Neut % (Auto) 71.6 % Lymph % (Auto) 19.6 % [place] % (Auto) 6.9 % Eos % (Auto) 1.2 % Baso % (Auto) 0.4 % Neut # (Auto) 8.28 H (1.40-6.50) K/uL Lymph # (Auto) 2.27 (1.2-3.4) K/uL [place] # (Auto) 0.80 H (0.11-0.59) K/uL Eos # (Auto) 0.14 (0-0.50) K/uL Baso # (Auto) 0.05 (0-0.2) K/uL Immature Gran # (Auto) 0.04 (0.01-0.20) K/uL PT 13.0 H (9.0-12.0) Seconds INR 1.2 H (0.9-1.1) APTT 28.9 (21.0-31.0) Seconds PTT Ratio 1.0 D-Dimer 780 H* (0-500) ug/L FEU Sodium (136-145) mmol/L Potassium (3.5-5.1) mmol/L Chloride (98-107) mmol/L Carbon Dioxide (21-32) mmol/L Anion Gap (3-11) BUN (6-23) mg/dl Creatinine (0.6-1.4) mg/dl Est Cr Clr Drug Dosing ml/min Est GFR ( Amer) ml/min Est GFR (Non-Af Amer) ml/min BUN/Creatinine Ratio (10-20) Glucose (70-99(Fasting)) mg/dl Calcium (8.6-10.3) mg/dl Magnesium (1.7-2.4) mg/dl Total Bilirubin (0.2-1.0) mg/dl AST (13-39) U/L ALT (7-52) U/L Alkaline Phosphatase (34-104) U/L Troponin I High Sens (0-20) pg/ml Total Protein (6.0-8.3) gm/dl Albumin (3.4-5.0) gm/dl Globulin (2.5-4.0) gm/dl Albumin/Globulin Ratio (0.9-2) TSH (0.300-4.500) uIu/ml Lyme Disease IgG Ab (Negative) Lyme IgG (Western Blot) Lyme IgG 18 kDa Band Lyme IgG 23 kDa Band Lyme IgG 28 kDa Band Lyme IgG 30 kDa Band Lyme IgG 39 kDa Band Lyme IgG 41 kDa Band Lyme IgG 45 kDa Band Lyme IgG 58 kDa Band Lyme IgG 66 kDa Band Lyme IgG 93 kDa Band Lyme IgM Ab (WB) Lyme Disease IgM Ab (Negative) Lyme IgM 23 kDa Band Lyme IgM 39 kDa Band Lyme IgM 41 kDa Band SARS-CoV-2 (PCR) (Negative) Influenza Type A (PCR) (Neg) Influenza Type B (PCR) (Neg) RSV (RT-PCR) (Neg) Medications Administered Current Inpatient Medications Acetaminophen (Acetaminophen 325 Mg Tab) 650 mg PO Q4H PRN PRN Reason: Pain or Fever Stop: 03/06/23 00:19 Sodium Chloride (Nss 1000ml) 1,000 mls @ 80 mls/hr IV .[id number] JANETTE Stop: 03/06/23 00:19 Last Admin: 02/04/23 16:25 Dose: 80 mls/hr Doxycycline Hyclate 100 mg/ (Dextrose) 110 mls @ 50 mls/hr IV Q12H [facility] Stop: 02/14/23 00:29 Last Infusion: 02/04/23 12:44 Dose: Infused Ceftriaxone Sodium 2,000 mg/ (Dextrose) 70 mls @ 100 mls/hr IV Q24H [facility]; Protocol Stop: 02/14/23 20:59 Nitroglycerin (Nitroglycerin Sl 0.4 Mg/Tab Tab) 0.4 mg SL Q5M PRN PRN Reason: Chest Pain Stop: 03/06/23 00:19
--- NOTE | 2023-02-04 17:32 | Critical Care Consultation ---
Date of Consultation February 04, 2023 Assessment & Plan (1) Heart block: (2) Lyme carditis: Plan NEURO -- No neuro involvement at this time of lyme disease CV 1. Lyme carditis 2. AV block -- Rocephin 2g iv q24 -- Pacer pads -- May need dopamine gtt vs TVP RESP 1. On room air RENAL -- renal fxn stable ID 1. Lyme disease with lyme carditis and EM rash, early stage -- Continue Rocephin, plan for at least 2 weeks of abx thearpy HEME 1. Leukocytosis -- Continue abx ENDO -- Blood glucose goal 140-180 DVT ppx: lovenox History of Present Illness Reason for Consultation: Bradycardia with pauses Requesting Physician: Dr. Mosley Attending Physician: Cristiano Mosley MD History of Present Illness 28 M admitted on 02/03/2023 with complaints of dyspnea, dizziness, and chest thightness. Found to have erythema migrans rash on left side of back and subsequently diagnosed with lyme disease and av block on EKG. Initial EKG with AV dissociation and accelerated junctional rhythm. Troponin leak of 32. Echo WNL. Was observed on the floor but due to continued pauses, upgraded to ICU for observation. Allergies Allergy/AdvReac Type Severity Reaction Status Date / Time Sulfa (Sulfonamide Allergy Unknown Verified 02/03/23 22:24 Antibiotics) Home Medications Medication Instructions Recorded Confirmed Type No Known Home Medications 02/03/23 02/03/23 History Patient History Medical History No pertinent past medical history Surgical History No pertinent past surgical history Family History Father Coronary heart disease Social History Smoking Status: Former smoker packs per day: 1; Smoking End Date: 2 days ago; Hx Alcohol Use: Yes Alcohol type: beer and hard liquor Alcohol Intake Frequency Comment: occasional Hx Substance Use: No Preferred Language: Mongolian Communication Ability: Effective Software Sales Representative Required: No Beliefs That Will Affect Care: None Current Living Situation: Spouse Other Information That Helps Us Care for You: No Feels Safe at Home: Yes Safety Concerns: Feels Safe At This Time Review of Systems Review of Systems: Currently asymptomatic, no complaints Physical Exam Physical Exam: GEN: a/O x 3, NAD CV: bradycardia Resp: CTAB Ext: warm, dry Skin: left sided rash on back Results & Data Results & Data Vital Signs (Past 12 Hours) Vital Signs Temp Pulse Pulse Resp BP BP Pulse Ox 02/04/23 17:04 63 132/77 02/04/23 15:26 37.4 C 50 L 20 96/48 L 97 02/04/23 10:41 37.3 C 71 20 125/69 97 02/04/23 07:35 37.7 C H 98 H 20 95/67 L 97 02/04/23 07:35 73 O2 Del Method 02/04/23 17:04 02/04/23 15:26 Room Air 02/04/23 10:41 Room Air 02/04/23 07:35 Room Air 02/04/23 07:35 Coding Level of Care Code 79557 CRITICAL CARE 1ST 30-74M Diagnoses Heart block I45.9 Lyme carditis A69.29 Time Spent (min) 30
[2023-02-04] MEDS ORDERED: STAT IV Infusion **Titration per Protocol STA (19:32)
[2023-02-04] MEDS: DOPamine / D5W 400 MG/250 ML BAG IV SCH (20:02)
[2023-02-04] MEDS: cefTRIAXone SODIUM 2,000 MG in DEXTROSE 5% 50 ML IV SCH (20:10)
[2023-02-05] MEDS: SODIUM CHLORIDE 0.9% 1000ML 1,000 ML IV SCH (02:24)
[2023-02-05] MEDS: DOPamine / D5W 400 MG/250 ML BAG IV SCH ×11 (02:27→21:47)
[2023-02-05 04:56] LABS: Hematocrit (blood only) 36.6 % (42.0-52.0); Hemoglobin 12.3 g/dl (14.0-18.0); Mean Corpuscular Hemoglobin 29.1 pg (25.0-34.0); Mean Corpuscular Hgb Conc 33.6 g/dL (32.0-36.0); Mean Corpuscular Volume 86.7 fL (80.0-100.0); Mean Platelet Volume 10.1 fL (9.4-12.4); Platelet Count 212 K/uL (130-400); RDW Coefficient of Variation 12.4 % (11.5-14.5); RDW Standard Deviation 39.3 fL (36.4-46.3); Red Blood Count 4.22 M/uL (4.70-6.10); White Blood Count 8.43 K/ul (4.8-10.8)
[2023-02-05 05:05] LABS: BUN Creatinine Ratio 11.5 (10-20); Calcium 8.7 mg/dl (8.6-10.3); Creatinine Clr Calc Pharmacy 214.1 ml/min; Est GFR (African American) 145.4 ml/min; Est GFR (Non-African American) 125.5 ml/min; Magnesium 1.9 mg/dl (1.7-2.4); Phosphorus 3.8 mg/dl (2.5-4.9); Potassium 3.8 mmol/L (3.5-5.1)
--- NOTE | 2023-02-05 07:24 | Electrocardiogram Report ---
Test Reason : Blood Pressure : / mmHG Vent. Rate : 067 BPM Atrial Rate : 067 BPM P-R Int : 000 ms QRS Dur : 090 ms QT Int : 378 ms P-R-T Axes : 009 028 000 degrees QTc Int : 399 ms Sinus rhythm with complete heart block and junctional escape rhythm Abnormal ECG No previous ECGs available Confirmed by Chase Neves ([id number]) on 02/05/2023 7:23:38 AM Referred By: REFERRED SELF Confirmed By:Catracho Neves
--- NOTE | 2023-02-05 07:25 | Electrocardiogram Report ---
Test Reason : Blood Pressure : / mmHG Vent. Rate : 065 BPM Atrial Rate : 110 BPM P-R Int : 000 ms QRS Dur : 092 ms QT Int : 386 ms P-R-T Axes : 000 032 -06 degrees QTc Int : 401 ms Sinus rhythm with complete heart block and junctional escape Abnormal ECG Confirmed by Chase Neves ([id number]) on 02/05/2023 7:24:26 AM Referred By: REFERRED SELF Confirmed By:Catracho Neves
--- NOTE | 2023-02-05 07:25 | Electrocardiogram Report ---
Test Reason : Blood Pressure : / mmHG Vent. Rate : 072 BPM Atrial Rate : 110 BPM P-R Int : 000 ms QRS Dur : 098 ms QT Int : 366 ms P-R-T Axes : 022 063 -05 degrees QTc Int : 400 ms Sinus tachycardia with complete heart block and Accelerated Junctional rhythm Abnormal ECG Confirmed by Chase Neves ([id number]) on 02/05/2023 7:25:18 AM Referred By: REFERRED SELF Confirmed By:Catracho Neves
--- NOTE | 2023-02-05 07:27 | Electrocardiogram Report ---
Test Reason : Blood Pressure : / mmHG Vent. Rate : 059 BPM Atrial Rate : 109 BPM P-R Int : 000 ms QRS Dur : 096 ms QT Int : 424 ms P-R-T Axes : 000 094 -17 degrees QTc Int : 419 ms Sinus tachycardia with high degree AV block Rightward axis T wave abnormality, consider inferior ischemia Abnormal ECG Confirmed by Chase Neves ([id number]) on 02/05/2023 7:27:07 AM Referred By: REFERRED SELF Confirmed By:Catracho Neves
--- NOTE | 2023-02-05 07:44 | Hospitalist Progress Note ---
Date of Service February 05, 2023 Assessment & Plan (1) Heart block: (2) Lyme carditis: Plan: Lyme carditis Heart block 27 yo M presents with shortness with exertion chest tightness and palpitations and EKG w/ heart block. ER discussed with the cardiology - Lyme carditis and pt's Lyme screen came back positive. Lyme carditis Lyme screen positive ECG c/e complete heart block w/junctional rhythm started on IV Rocephin and Doxy on admission, will continue D-dimer is elevated but CT chest unremarkable Mild elevation of troponin most likely demand ischemia we will follow serial enzymes and echocardiogram Echo obtained -mild concentric LVH. LV wall motion is abnormal. LVEF 55 to 60%. RV is normal in size and function. There is no pericardial effusion. There is no significant valvular disease. PADs placed in the event of emergent need for transcutaneous pacing Atropine at bedside Limited ambulation Keep K>4, Mag >2 Pt's HR down to 40s - discussed further w/ cardiology and recommend transferring to ICU in case he needs dopamine or temporary venous pacemaker. Discussed w/ ultrasound tech and will transfer pt to ICU now. DVT prophylaxis SCDs Full code Admission and Anticipated Discharge Date Admission Date: February 03, 2023 Subjective Pt seen in follow up of lyme carditis , complete heart block Currently laying in bed in NAD denies any chest pain, shortness of breath, palpitations at this time. No dizziness, only been out of bed to bathroom Pt was started on IV Abx on admission and was seen by cardiology HR sometimes in 40s - discussed further w/ cardiology - recommend ICU for poss. dopamine or transcut venous pacer -discussed w/ ultrasound tech and pt will be transferred to icu Physical Exam Physical Exam: General- young obe se M in NAD Head- atraumatic Eyes - PERRLA ENT- [place] pharynx clear Nec k- supple, no JVD Lungs- clear to a uscultation and pe rcussion, no added sounds Heart- re gular rhythm; no m urmur Abdomen- no rmal bowel sounds, soft, nontender, no distension Ext remities- no preti bial edema, no hawk thema seen Neuro- alert, oriented x 3; PERRL, no fac ial palsy; no dysa rthria; moves extr emities. Skin- wa rm & dry blotches of erythematosus r marely seen on lower extremities Results & Data Results & Data Vital Signs (Past 12 Hours) Vital Signs Temp Pulse Resp BP Pulse Ox 02/05/23 06:01 160/74 H 02/05/23 06:01 70 22 96 02/05/23 06:00 80 21 98 02/05/23 05:50 63 28 H 95 02/05/23 05:40 65 30 H 95 02/05/23 05:30 65 32 H 95 02/05/23 05:20 59 L 29 H 96 02/05/23 05:10 60 20 97 02/05/23 05:01 144/67 H 02/05/23 05:01 42 L 20 98 02/05/23 05:00 47 L 25 H 99 02/05/23 04:50 63 16 95 02/05/23 04:40 47 L 22 96 02/05/23 04:30 48 L 17 96 02/05/23 04:20 45 L 24 97 02/05/23 04:10 48 L 23 97 02/05/23 04:01 133/43 L 02/05/23 04:01 47 L 22 97 02/05/23 04:00 44 L 23 97 02/05/23 03:50 47 L 24 97 02/05/23 03:40 46 L 23 96 02/05/23 03:30 49 L 23 96 02/05/23 03:20 47 L 24 96 02/05/23 03:10 48 L 23 97 02/05/23 03:01 123/39 L 02/05/23 03:01 45 L 24 98 02/05/23 03:00 50 L 23 97 02/05/23 02:50 51 L 10 L 94 02/05/23 02:40 46 L 3 L 98 02/05/23 02:30 48 L 10 L 98 02/05/23 02:20 50 L 25 H 97 02/05/23 02:10 52 L 0 L 97 02/05/23 02:01 51 L 7 L 95 02/05/23 02:01 115/33 L 02/05/23 02:00 57 L 11 L 98 02/05/23 01:50 54 L 12 98 02/05/23 01:40 67 15 96 02/05/23 01:30 63 26 H 93 02/05/23 01:20 66 23 95 02/05/23 01:10 63 32 H 93 02/05/23 01:01 142/47 H 02/05/23 01:01 74 19 91 02/05/23 01:00 61 30 H 89 L 02/05/23 00:50 65 32 H 91 02/05/23 00:40 57 L 31 H 95 02/05/23 00:30 42 L 20 95 02/05/23 00:20 48 L 29 H 94 02/05/23 00:10 58 L 25 H 91 02/05/23 00:01 145/50 H 02/05/23 00:01 57 L 20 92 02/05/23 00:00 66 31 H 90 02/04/23 23:50 53 L 24 92 02/04/23 23:40 58 L 14 94 02/05/23 01:59 37.4 C 02/04/23 23:30 50 L 19 95 02/04/23 23:01 125/34 L 02/04/23 23:01 48 L 23 96 02/04/23 23:00 47 L 24 96 02/04/23 23:56 37 C 02/04/23 22:40 52 L 21 98 02/04/23 22:30 50 L 26 H 95 02/04/23 22:20 50 L 20 96 02/04/23 22:10 57 L 27 H 94 02/04/23 22:01 137/45 L 02/04/23 22:01 59 L 28 H 97 02/04/23 22:00 63 32 H 94 02/04/23 21:50 52 L 31 H 95 02/04/23 21:40 59 L 22 95 02/04/23 21:30 65 26 H 89 L 02/04/23 21:20 67 15 89 L 02/04/23 21:10 63 3 L 92 02/04/23 21:02 64 30 H 94 02/04/23 21:02 144/39 H 02/04/23 21:00 62 31 H 92 02/04/23 20:50 65 17 92 02/04/23 20:40 60 13 94 02/04/23 20:30 68 17 93 02/04/23 20:20 70 20 94 02/04/23 20:10 71 22 93 02/04/23 20:01 119/55 L 02/04/23 20:01 54 L 18 95 02/04/23 20:00 59 L 16 95 02/04/23 19:58 110/47 L 02/04/23 19:58 57 L 15 96 02/04/23 19:50 57 L 20 94 02/04/23 20:00 37.0 C Laboratory Results 02/05/23 02/05/23 02/04/23 Range/Units 04:33 04:33 18:18 WBC 8.43 (4.8-10.8) K/ul RBC 4.22 L (4.70-6.10) M/uL Hgb 12.3 L (14.0-18.0) g/dl Hct 36.6 L (42.0-52.0) % MCV 86.7 (80.0-100.0) fL MCH 29.1 (25.0-34.0) pg MCHC 33.6 (32.0-36.0) g/dL RDW Std Deviation 39.3 (36.4-46.3) fL RDW Coeff of Debby 12.4 (11.5-14.5) % Plt Count 212 (130-400) K/uL MPV 10.1 (9.4-12.4) fL Sodium 137 (136-145) mmol/L Potassium 3.8 (3.5-5.1) mmol/L Chloride 108 H (98-107) mmol/L Carbon Dioxide 22 (21-32) mmol/L Anion Gap 7 (3-11) BUN 9 (6-23) mg/dl Creatinine 0.78 (0.6-1.4) mg/dl Est Cr Clr Drug Dosing 214.1 ml/min Est GFR ( Amer) 145.4 ml/min Est GFR (Non-Af Amer) 125.5 ml/min BUN/Creatinine Ratio 11.5 (10-20) Glucose 112 H (70-99(Fasting)) mg/dl Calcium 8.7 (8.6-10.3) mg/dl Phosphorus 3.8 (2.5-4.9) mg/dl Magnesium 1.9 (1.7-2.4) mg/dl Troponin I High Sens (0-20) pg/ml TSH (0.300-4.500) uIu/ml Nasal Screen MRSA (PCR) Negative (Negative) 02/04/23 02/04/23 02/04/23 Range/Units 16:44 11:08 11:08 WBC (4.8-10.8) K/ul RBC (4.70-6.10) M/uL Hgb (14.0-18.0) g/dl Hct (42.0-52.0) % MCV (80.0-100.0) fL MCH (25.0-34.0) pg MCHC (32.0-36.0) g/dL RDW Std Deviation (36.4-46.3) fL RDW Coeff of Debby (11.5-14.5) % Plt Count (130-400) K/uL MPV (9.4-12.4) fL Sodium (136-145) mmol/L Potassium (3.5-5.1) mmol/L Chloride (98-107) mmol/L Carbon Dioxide (21-32) mmol/L Anion Gap (3-11) BUN (6-23) mg/dl Creatinine (0.6-1.4) mg/dl Est Cr Clr Drug Dosing ml/min Est GFR ( Amer) ml/min Est GFR (Non-Af Amer) ml/min BUN/Creatinine Ratio (10-20) Glucose (70-99(Fasting)) mg/dl Calcium (8.6-10.3) mg/dl Phosphorus (2.5-4.9) mg/dl Magnesium (1.7-2.4) mg/dl Troponin I High Sens 24.1 H 26.4 H (0-20) pg/ml TSH 0.937 (0.300-4.500) uIu/ml Nasal Screen MRSA (PCR) (Negative) Medications Administered Current Inpatient Medications Acetaminophen (Acetaminophen 325 Mg Tab) 650 mg PO Q4H PRN PRN Reason: Pain or Fever Stop: 03/06/23 00:19 Sodium Chloride (Nss 1000ml) 1,000 mls @ 80 mls/hr IV .[id number] JANETTE Stop: 03/06/23 00:19 Last Admin: 02/05/23 02:24 Dose: 80 mls/hr Doxycycline Hyclate 100 mg/ (Dextrose) 110 mls @ 50 mls/hr IV Q12H JANETTE Stop: 02/14/23 00:29 Last Infusion: 02/04/23 22:41 Dose: Infused Ceftriaxone Sodium 2,000 mg/ (Dextrose) 70 mls @ 100 mls/hr IV Q24H [facility]; Protocol Stop: 02/14/23 20:59 Last Infusion: 02/04/23 20:52 Dose: Infused Dopamine HCl/Dextrose (Dopamine / D5w) 400 mg in 250 mls @ 54.375 mls/hr IV .Q 4H36M [facility]; Protocol Stop: 03/06/23 19:44 Last Admin: 02/05/23 07:26 Dose: 10 mcg/kg/min, 54.4 mls/hr Nitroglycerin (Nitroglycerin Sl 0.4 Mg/Tab Tab) 0.4 mg SL Q5M PRN PRN Reason: Chest Pain Stop: 03/06/23 00:19
[2023-02-05] MEDS ORDERED: POTASSIUM CHLORIDE 20 MEQ/15 ML UDC PO SCH (10:00)
[2023-02-05] MEDS: DOXYCYCLINE HYCLATE 100 MG in DEXTROSE 5% 100 ML IV SCH ×2 (10:30→20:35)
[2023-02-05] MEDS: POTASSIUM CHLORIDE CRTAB 20 MEQ TABCR PO SCH (10:37)
--- NOTE | 2023-02-05 11:57 | Critical Care Progress Note ---
Date of Service February 05, 2023 Assessment & Plan (1) Heart block: (2) Lyme carditis: Plan NEURO -- No neuro involvement at this time of lyme disease CV 1. Lyme carditis 2. AV block -- Rocephin 2g iv q24 -- Pacer pads -- On dopamine gtt, titrate to HR 60s RESP 1. On room air RENAL -- renal fxn stable ID 1. Lyme disease with lyme carditis and EM rash, early stage -- Continue Rocephin IV until resolution of AV block / pauses, plan for at least 2 weeks of abx therapy per guidelines HEME 1. Leukocytosis -- Continue abx ENDO -- Blood glucose goal 140-180 DVT ppx: lovenox Admission and Anticipated Discharge Date Admission Date: February 03, 2023 Subjective Summary: 28 M admitted on 02/03/2023 with complaints of dyspnea, dizziness, and chest thightness. Found to have erythema migrans rash on left side of back and subsequently diagnosed with lyme disease and av block on EKG. Initial EKG with AV dissociation and accelerated junctional rhythm. Troponin leak of 32. Echo WNL. Was observed on the floor but due to continued pauses, upgraded to ICU for observation on 02/04/2023. Interval Events: 02/05/2023. Dopamin started overnight for pauses and HR in 30s. Currently on 10 mcg. Patient remains asymptomatic. Continues on Ceftriaxone. Review of Systems Review of Systems: Currently asymptomatic, no complaints Physical Exam Physical Exam: GEN: a/O x 3, NAD CV: bradycardia Resp: CTAB Ext: warm, dry Skin: left sided rash on back Results & Data Results & Data Vital Signs (Past 12 Hours) Vital Signs Temp Pulse Resp BP Pulse Ox O2 Del Method 02/05/23 10:00 53 L 22 157/55 H 99 Room Air 02/05/23 09:00 64 25 H 165/67 H 95 Room Air 02/05/23 08:00 51 L 23 168/62 H 96 Room Air 02/05/23 07:01 60 21 176/64 H 96 02/05/23 06:01 160/74 H 02/05/23 06:01 70 22 96 02/05/23 06:00 80 21 98 02/05/23 05:50 63 28 H 95 02/05/23 05:40 65 30 H 95 02/05/23 05:30 65 32 H 95 02/05/23 05:20 59 L 29 H 96 02/05/23 05:10 60 20 97 02/05/23 05:01 144/67 H 02/05/23 05:01 42 L 20 98 02/05/23 05:00 47 L 25 H 99 02/05/23 04:50 63 16 95 02/05/23 04:40 47 L 22 96 02/05/23 04:30 48 L 17 96 02/05/23 04:20 45 L 24 97 02/05/23 04:10 48 L 23 97 02/05/23 04:01 133/43 L 02/05/23 04:01 47 L 22 97 02/05/23 04:00 44 L 23 97 02/05/23 03:50 47 L 24 97 02/05/23 03:40 46 L 23 96 02/05/23 03:30 49 L 23 96 02/05/23 03:20 47 L 24 96 02/05/23 03:10 48 L 23 97 02/05/23 03:01 123/39 L 02/05/23 03:01 45 L 24 98 02/05/23 03:00 50 L 23 97 02/05/23 02:50 51 L 10 L 94 02/05/23 02:40 46 L 3 L 98 02/05/23 02:30 48 L 10 L 98 02/05/23 02:20 50 L 25 H 97 02/05/23 02:10 52 L 0 L 97 02/05/23 02:01 51 L 7 L 95 02/05/23 02:01 115/33 L 02/05/23 02:00 57 L 11 L 98 02/05/23 01:50 54 L 12 98 02/05/23 01:40 67 15 96 02/05/23 01:30 63 26 H 93 02/05/23 01:20 66 23 95 02/05/23 01:10 63 32 H 93 02/05/23 01:01 142/47 H 02/05/23 01:01 74 19 91 02/05/23 01:00 61 30 H 89 L 02/05/23 00:50 65 32 H 91 02/05/23 00:40 57 L 31 H 95 02/05/23 00:30 42 L 20 95 02/05/23 00:20 48 L 29 H 94 02/05/23 00:10 58 L 25 H 91 02/05/23 00:01 145/50 H 02/05/23 00:01 57 L 20 92 02/05/23 00:00 66 31 H 90 02/05/23 01:59 37.4 C 02/04/23 23:56 37 C Coding Level of Care Code 16499 CRITICAL CARE 1ST 30-74M Diagnoses Heart block I45.9 Lyme carditis A69.29 Time Spent (min) 35
--- NOTE | 2023-02-05 12:48 | Cardiology Progress Note ---
Date of Service February 05, 2023 Assessment & Plan (1) Lyme carditis: (2) Heart block: Plan Continue IV Ceftriaxone and dopamine infusion Maintain pacer pads on patient Uninterrupted telemetry monitoring, ICU, daily EKG's Admission and Anticipated Discharge Date Admission Date: February 03, 2023 Supervising Physician Co-Signing Physician Notes Attending Staff: Pt was seen and examined with [facility] Staff. Concur with observations and plans. 50 min spent addressing patient's challenges, educating and/or advancing daily plan of care 27 yo man Bradycardia EKG compatible with Complete Heart Block w/ junctional escape SBP is WNL No syncope Lyme IgM + Target lesion on back Plans for ABX to treat acute Lyme Disease ECHO - preliminary - no evidence of Cardiomyopathy of severe valvular pathology No evidence of Heart Failure No Pauses on Telemetry Events overnight: * Pt's HR noted to drop into the 40's * Pt was asymptomatic * Pt was transferred to ICU for close monitoring * I personally connected with ICU Staff * Dopamine started in response to HR's in the 40's * Overnight - no prolonged pauses * Pt sans Sx Plans: * PADs in place in the event of emergent need for transcutaneous pacing * Atropine at bedside * Limited ambulation given complete heart block * DVT PPX * K+ goal 4.5-5 * Please replete K+ - consider KDUR 40 meq po x1 * Mag++ goal >2 * TSH - 0.9 - WNL * Continue Dopamine to maintain HR * May need to consider PICC line for ongoing Dopamine. * Explained to patient that we are hopeful that his bradycardia will resolve * Continue supportive care Surjit Srivastava Subjective Patient seen and examined. Jaydon at bedside. 27 year old male admitted with activity related shortness of breath, dizziness, chest tightness, heart pounding, and shortness of breath. + erythema migrans type rash on the mid left back first observed by approximately one month ago when camping. Presented with high degree AV block. Resting echocardiography OK Prescribed IV ceftriaxone. Transferred to the ICU in the late afternoon of 02/04/2023. Had palpitations when dopamine initiated last night but feeling fine now. No chest pain. No current palpitations. No shortness of breath. Currently on dopamine 14 mcg/kg/min Afebrile since 02/04/2023 at 07:35 AM Review of Systems Review of Systems: All systems reviewed & are unremarkable except as noted in HPI & below Complete Review of Systems is as stated above, negative, or noncontributory. Physical Exam Physical Exam: General: A&Ox3. NAD. Skin: + Erythema migrans rash on left mid to upper back, ? rashes on left lower extremity HENT: Normocephalic. Atraumatic. Eyes: PER. Conjunctiva pink, sclera clear. Neck: No carotid bruits. Normal JVP. No HJR. Heart: Somewhat distant heart sounds. Irregular at 60 bpm. No murmur. Lungs: Clear to auscultation anteriorly. Abdomen: +BS. Soft. Nontender. No masses or organomegaly. Extremities: + Two circular rashes on the left lower extremity. No clubbing. No cyanosis. No edema. Limited neurological examination is without focal deficits. Pulses: radial=2/4, posterior tibial=2/4. Results & Data Vital Signs (Past 12 Hours) Vital Signs Temp Pulse Resp BP Pulse Ox O2 Del Method 02/05/23 10:00 53 L 22 157/55 H 99 Room Air 02/05/23 09:00 64 25 H 165/67 H 95 Room Air 02/05/23 08:00 51 L 23 168/62 H 96 Room Air 02/05/23 07:01 60 21 176/64 H 96 02/05/23 06:01 160/74 H 02/05/23 06:01 70 22 96 02/05/23 06:00 80 21 98 02/05/23 05:50 63 28 H 95 02/05/23 05:40 65 30 H 95 02/05/23 05:30 65 32 H 95 02/05/23 05:20 59 L 29 H 96 02/05/23 05:10 60 20 97 02/05/23 05:01 144/67 H 02/05/23 05:01 42 L 20 98 02/05/23 05:00 47 L 25 H 99 02/05/23 04:50 63 16 95 02/05/23 04:40 47 L 22 96 02/05/23 04:30 48 L 17 96 02/05/23 04:20 45 L 24 97 02/05/23 04:10 48 L 23 97 02/05/23 04:01 133/43 L 02/05/23 04:01 47 L 22 97 02/05/23 04:00 44 L 23 97 02/05/23 03:50 47 L 24 97 02/05/23 03:40 46 L 23 96 02/05/23 03:30 49 L 23 96 02/05/23 03:20 47 L 24 96 02/05/23 03:10 48 L 23 97 02/05/23 03:01 123/39 L 02/05/23 03:01 45 L 24 98 02/05/23 03:00 50 L 23 97 02/05/23 02:50 51 L 10 L 94 02/05/23 02:40 46 L 3 L 98 02/05/23 02:30 48 L 10 L 98 02/05/23 02:20 50 L 25 H 97 02/05/23 02:10 52 L 0 L 97 02/05/23 02:01 51 L 7 L 95 02/05/23 02:01 115/33 L 02/05/23 02:00 57 L 11 L 98 02/05/23 01:50 54 L 12 98 02/05/23 01:40 67 15 96 02/05/23 01:30 63 26 H 93 02/05/23 01:20 66 23 95 02/05/23 01:10 63 32 H 93 02/05/23 01:01 142/47 H 02/05/23 01:01 74 19 91 02/05/23 01:00 61 30 H 89 L 02/05/23 00:50 65 32 H 91 02/05/23 01:59 37.4 C Laboratory Results Cardiac Enzymes 02/04/23 Range/Units 16:44 Troponin I High Sens 24.1 H (0-20) pg/ml CBC 02/05/23 Range/Units 04:33 WBC 8.43 (4.8-10.8) K/ul RBC 4.22 L (4.70-6.10) M/uL Hgb 12.3 L (14.0-18.0) g/dl Hct 36.6 L (42.0-52.0) % Plt Count 212 (130-400) K/uL Comprehensive Metabolic Panel 02/05/23 Range/Units 04:33 Sodium 137 (136-145) mmol/L Potassium 3.8 (3.5-5.1) mmol/L Chloride 108 H (98-107) mmol/L Carbon Dioxide 22 (21-32) mmol/L BUN 9 (6-23) mg/dl Creatinine 0.78 (0.6-1.4) mg/dl Glucose 112 H (70-99(Fasting)) mg/dl Calcium 8.7 (8.6-10.3) mg/dl Intake and Output 02/04/23 02/05/23 02/05/23 22:59 06:59 14:59 Intake Total 180 / 2893.720 1033.720 / 2893.720 1704.000 / 1704.000 Output Total 500 / 1600 1100 / 1600 700 / 700 Balance -320 / 1293.720 -66.280 / 6709.302 2994.000 / 1004.000 Intake: IV 180 / 2323.720 1033.720 / 2323.720 1164.000 / 1164.000 DOPamine / D5W 400 mg In 250 ml 235.053 / 235.053 500.000 / 500.000 @ 12 MCG/KG/MIN 65.25 mls/hr IV .[id number] JANETTE Rx#:[id number] Doxycycline Hyclate 100 mg In 110 / 220 Dextrose 5% 100 ml @ 50 mls/hr IV Q12H JANETTE Rx#:[id number] Sodium Chloride 0.9% 1000ML 1, 798.667 / 1798.667 664 / 664 000 ml @ 80 mls/hr IV .[id number] JANETTE Rx#:[id number] cefTRIAXone SODIUM 2,000 mg In 70 / 70 Dextrose 5% 50 ml @ 100 mls/hr IV Q24H JANETTE Rx#:[id number] Oral 540 / 540 Output: Urine 500 / 1600 1100 / 1600 700 / 700 Other: Weight 145.2 kg Weight Measurement Method Built in [facility]
--- NOTE | 2023-02-05 14:28 | Hospitalist Progress Note ---
Date of Service February 05, 2023 Assessment & Plan (1) Heart block: (2) Lyme carditis: Plan: Lyme carditis Heart block 27 yo M presents with shortness with exertion chest tightness and palpitations and EKG w/ heart block. ER discussed with the cardiology - Lyme carditis and pt's Lyme screen came back positive. Lyme carditis Lyme screen positive ECG c/e complete heart block w/junctional rhythm started on IV Rocephin and Doxy on admission, will continue D-dimer is elevated but CT chest unremarkable Mild elevation of troponin most likely demand ischemia we will follow serial enzymes and echocardiogram Echo obtained -mild concentric LVH. LV wall motion is abnormal. LVEF 55 to 60%. RV is normal in size and function. There is no pericardial effusion. There is no significant valvular disease. PADs placed in the event of emergent need for transcutaneous pacing Atropine at bedside Limited ambulation Keep K>4, Mag >2 Pt's HR down to 40s and so pt was transferred to ICU yesterday and started on dopamine overnight. Cardiology continues to follow closely. DVT prophylaxis SCDs Full code Admission and Anticipated Discharge Date Admission Date: February 03, 2023 Subjective Pt seen in follow up of lyme carditis , complete heart block Currently laying in bed in NAD denies any chest pain, shortness of breath, palpitations at this time. No dizziness, only been out of bed to bathroom Pt was started on IV Abx on admission and was seen by cardiology HR sometimes in 40s - and so pt transferred to ICU. Pt was started on dopamine overnight. Overall pt feels well, denies chest pain, shortness of breath, dizziness. Pt's present at the bedside and updated. Review of Systems Review of Systems: All systems reviewed & are unremarkable except as noted in Subjective Physical Exam Physical Exam: General- young obe se M in NAD Head- atraumatic Eyes - PERRLA ENT- [place] pharynx clear Nec k- supple, no JVD Lungs- clear to a uscultation and pe rcussion, no added sounds Heart- re gular rhythm; no m urmur Abdomen- no rmal bowel sounds, soft, nontender, no distension Ext remities- no preti bial edema, no hawk thema seen Neuro- alert, oriented x 3; PERRL, no fac ial palsy; no dysa rthria; moves extr emities. Skin- wa rm & dry blotches of erythematosus r marely seen on lower extremities Results & Data Results & Data Vital Signs (Past 12 Hours) Vital Signs Pulse Resp BP Pulse Ox O2 Del Method 02/05/23 13:00 50 L 17 137/69 93 Room Air 02/05/23 12:00 74 16 134/45 L 95 Room Air 02/05/23 11:01 53 L 20 148/59 H 95 Room Air 02/05/23 10:00 53 L 22 157/55 H 99 Room Air 02/05/23 09:00 64 25 H 165/67 H 95 Room Air 02/05/23 08:00 51 L 23 168/62 H 96 Room Air 02/05/23 07:01 60 21 176/64 H 96 02/05/23 06:01 160/74 H 02/05/23 06:01 70 22 96 02/05/23 06:00 80 21 98 02/05/23 05:50 63 28 H 95 02/05/23 05:40 65 30 H 95 02/05/23 05:30 65 32 H 95 02/05/23 05:20 59 L 29 H 96 02/05/23 05:10 60 20 97 02/05/23 05:01 144/67 H 02/05/23 05:01 42 L 20 98 02/05/23 05:00 47 L 25 H 99 02/05/23 04:50 63 16 95 02/05/23 04:40 47 L 22 96 02/05/23 04:30 48 L 17 96 02/05/23 04:20 45 L 24 97 02/05/23 04:10 48 L 23 97 02/05/23 04:01 133/43 L 02/05/23 04:01 47 L 22 97 02/05/23 04:00 44 L 23 97 02/05/23 03:50 47 L 24 97 02/05/23 03:40 46 L 23 96 02/05/23 03:30 49 L 23 96 02/05/23 03:20 47 L 24 96 02/05/23 03:10 48 L 23 97 02/05/23 03:01 123/39 L 02/05/23 03:01 45 L 24 98 02/05/23 03:00 50 L 23 97 02/05/23 02:50 51 L 10 L 94 02/05/23 02:40 46 L 3 L 98 02/05/23 02:30 48 L 10 L 98 Laboratory Results 02/05/23 02/05/23 02/04/23 Range/Units 04:33 04:33 18:18 WBC 8.43 (4.8-10.8) K/ul RBC 4.22 L (4.70-6.10) M/uL Hgb 12.3 L (14.0-18.0) g/dl Hct 36.6 L (42.0-52.0) % MCV 86.7 (80.0-100.0) fL MCH 29.1 (25.0-34.0) pg MCHC 33.6 (32.0-36.0) g/dL RDW Std Deviation 39.3 (36.4-46.3) fL RDW Coeff of Debby 12.4 (11.5-14.5) % Plt Count 212 (130-400) K/uL MPV 10.1 (9.4-12.4) fL Sodium 137 (136-145) mmol/L Potassium 3.8 (3.5-5.1) mmol/L Chloride 108 H (98-107) mmol/L Carbon Dioxide 22 (21-32) mmol/L Anion Gap 7 (3-11) BUN 9 (6-23) mg/dl Creatinine 0.78 (0.6-1.4) mg/dl Est Cr Clr Drug Dosing 214.1 ml/min Est GFR ( Amer) 145.4 ml/min Est GFR (Non-Af Amer) 125.5 ml/min BUN/Creatinine Ratio 11.5 (10-20) Glucose 112 H (70-99(Fasting)) mg/dl Calcium 8.7 (8.6-10.3) mg/dl Phosphorus 3.8 (2.5-4.9) mg/dl Magnesium 1.9 (1.7-2.4) mg/dl Troponin I High Sens (0-20) pg/ml Nasal Screen MRSA (PCR) Negative (Negative) 02/04/23 Range/Units 16:44 WBC (4.8-10.8) K/ul RBC (4.70-6.10) M/uL Hgb (14.0-18.0) g/dl Hct (42.0-52.0) % MCV (80.0-100.0) fL MCH (25.0-34.0) pg MCHC (32.0-36.0) g/dL RDW Std Deviation (36.4-46.3) fL RDW Coeff of Debby (11.5-14.5) % Plt Count (130-400) K/uL MPV (9.4-12.4) fL Sodium (136-145) mmol/L Potassium (3.5-5.1) mmol/L Chloride (98-107) mmol/L Carbon Dioxide (21-32) mmol/L Anion Gap (3-11) BUN (6-23) mg/dl Creatinine (0.6-1.4) mg/dl Est Cr Clr Drug Dosing ml/min Est GFR ( Amer) ml/min Est GFR (Non-Af Amer) ml/min BUN/Creatinine Ratio (10-20) Glucose (70-99(Fasting)) mg/dl Calcium (8.6-10.3) mg/dl Phosphorus (2.5-4.9) mg/dl Magnesium (1.7-2.4) mg/dl Troponin I High Sens 24.1 H (0-20) pg/ml Nasal Screen MRSA (PCR) (Negative) Medications Administered Current Inpatient Medications Acetaminophen (Acetaminophen 325 Mg Tab) 650 mg PO Q4H PRN PRN Reason: Pain or Fever Stop: 03/06/23 00:19 Doxycycline Hyclate 100 mg/ (Dextrose) 110 mls @ 50 mls/hr IV Q12H [facility] Stop: 02/14/23 00:29 Last Infusion: 02/05/23 12:45 Dose: Infused Ceftriaxone Sodium 2,000 mg/ (Dextrose) 70 mls @ 100 mls/hr IV Q24H [facility]; Protocol Stop: 02/14/23 20:59 Last Infusion: 02/04/23 20:52 Dose: Infused Dopamine HCl/Dextrose (Dopamine / D5w) 400 mg in 250 mls @ 76.125 mls/hr IV .Q3H18M [facility]; Protocol Stop: 03/06/23 19:44 Last Admin: 02/05/23 12:06 Dose: 14 mcg/kg/min, 76.1 mls/hr Nitroglycerin (Nitroglycerin Sl 0.4 Mg/Tab Tab) 0.4 mg SL Q5M PRN PRN Reason: Chest Pain Stop: 03/06/23 00:19 Potassium Chloride (Potassium Chloride Crtab 20 Meq Tabcr) 40 meq PO QAM JANETTE Stop: 03/07/23 10:29 Last Admin: 02/05/23 10:37 Dose: 40 meq
[2023-02-05] MEDS ORDERED: MIDAZOLAM HCL 1 MG/ML 2ML VIAL ONE ×2 (14:50→16:00)
[2023-02-05] MEDS ORDERED: MIDAZOLAM HCL 1 MG/ML 2ML VIAL IV STA (14:56)
[2023-02-05] MEDS ORDERED: MAGNESIUM SULFATE / D5W 1 GM/100 ML BAG IV ONE (15:37)
[2023-02-05] MEDS ORDERED: niCARdipine HCL INJ 2.5 MG/ML 10 ML AMP ONE (15:59)
[2023-02-05] MEDS ORDERED: fentaNYL citrate PF 100 MCG/2 ML VIAL ONE (15:59)
[2023-02-05] MEDS ORDERED: HEPARIN (PORCINE) 1000 UNIT/ML 10 ML (CATH LAB USE ONLY) ONE (15:59)
[2023-02-05] MEDS ORDERED: NITROGLYCERIN/D5W 100MCG/ML 20ML SYR ONE (16:00)
[2023-02-05] MEDS ORDERED: LIDOCAINE 1% LOCAL 20 ML VIAL ONE (16:02)
--- NOTE | 2023-02-05 16:06 | Pre Anesthesia Assessment ---
Date of Service February 05, 2023 Pre Sedation Assessment Vital Signs Temp Pulse Pulse Resp BP BP Pulse Ox 02/05/23 13:00 50 L 17 137/69 93 02/05/23 12:00 74 16 134/45 L 95 02/05/23 11:01 53 L 20 148/59 H 95 02/05/23 10:00 53 L 22 157/55 H 99 02/05/23 09:00 64 25 H 165/67 H 95 02/05/23 08:00 51 L 23 168/62 H 96 02/05/23 07:01 60 21 176/64 H 96 02/05/23 06:01 160/74 H 02/05/23 06:01 70 22 96 02/05/23 06:00 80 21 98 02/05/23 05:50 63 28 H 95 02/05/23 05:40 65 30 H 95 02/05/23 05:30 65 32 H 95 02/05/23 05:20 59 L 29 H 96 02/05/23 05:10 60 20 97 02/05/23 05:01 144/67 H 02/05/23 05:01 42 L 20 98 02/05/23 05:00 47 L 25 H 99 02/05/23 04:50 63 16 95 02/05/23 04:40 47 L 22 96 02/05/23 04:30 48 L 17 96 02/05/23 04:20 45 L 24 97 02/05/23 04:10 48 L 23 97 02/05/23 04:01 133/43 L 02/05/23 04:01 47 L 22 97 02/05/23 04:00 44 L 23 97 02/05/23 03:50 47 L 24 97 02/05/23 03:40 46 L 23 96 02/05/23 03:30 49 L 23 96 02/05/23 03:20 47 L 24 96 02/05/23 03:10 48 L 23 97 02/05/23 03:01 123/39 L 02/05/23 03:01 45 L 24 98 02/05/23 03:00 50 L 23 97 02/05/23 02:50 51 L 10 L 94 02/05/23 02:40 46 L 3 L 98 02/05/23 02:30 48 L 10 L 98 02/05/23 02:20 50 L 25 H 97 02/05/23 02:10 52 L 0 L 97 02/05/23 02:01 51 L 7 L 95 02/05/23 02:01 115/33 L 02/05/23 02:00 57 L 11 L 98 02/05/23 01:50 54 L 12 98 02/05/23 01:40 67 15 96 02/05/23 01:30 63 26 H 93 02/05/23 01:20 66 23 95 02/05/23 01:10 63 32 H 93 02/05/23 01:01 142/47 H 02/05/23 01:01 74 19 91 02/05/23 01:00 61 30 H 89 L 02/05/23 00:50 65 32 H 91 02/05/23 00:40 57 L 31 H 95 02/05/23 00:30 42 L 20 95 02/05/23 00:20 48 L 29 H 94 02/05/23 00:10 58 L 25 H 91 02/05/23 00:01 145/50 H 02/05/23 00:01 57 L 20 92 02/05/23 00:00 66 31 H 90 02/04/23 23:50 53 L 24 92 02/04/23 23:40 58 L 14 94 02/05/23 01:59 99.4 F 02/04/23 23:30 50 L 19 95 02/04/23 23:01 125/34 L 02/04/23 23:01 48 L 23 96 02/04/23 23:00 47 L 24 96 02/04/23 23:56 98.6 F 02/04/23 22:40 52 L 21 98 02/04/23 22:30 50 L 26 H 95 02/04/23 22:20 50 L 20 96 02/04/23 22:10 57 L 27 H 94 02/04/23 22:01 137/45 L 02/04/23 22:01 59 L 28 H 97 02/04/23 22:00 63 32 H 94 02/04/23 21:50 52 L 31 H 95 02/04/23 21:40 59 L 22 95 02/04/23 21:30 65 26 H 89 L 02/04/23 21:20 67 15 89 L 02/04/23 21:10 63 3 L 92 02/04/23 21:02 64 30 H 94 02/04/23 21:02 144/39 H 02/04/23 21:00 62 31 H 92 02/04/23 20:50 65 17 92 02/04/23 20:40 60 13 94 02/04/23 20:30 68 17 93 02/04/23 20:20 70 20 94 02/04/23 20:10 71 22 93 02/04/23 20:01 119/55 L 02/04/23 20:01 54 L 18 95 02/04/23 20:00 59 L 16 95 02/04/23 19:58 110/47 L 02/04/23 19:58 57 L 15 96 02/04/23 19:50 57 L 20 94 02/04/23 19:40 55 L 24 96 02/04/23 19:30 64 21 96 02/04/23 19:20 69 19 97 02/04/23 19:10 59 L 22 96 02/04/23 19:01 115/56 L 02/04/23 19:01 67 22 96 02/04/23 19:00 58 L 22 96 02/04/23 20:00 98.6 F 02/04/23 17:04 63 132/77 O2 Del Method 02/05/23 13:00 Room Air 02/05/23 12:00 Room Air 02/05/23 11:01 Room Air 02/05/23 10:00 Room Air 02/05/23 09:00 Room Air 02/05/23 08:00 Room Air 02/05/23 07:01 02/05/23 06:01 02/05/23 06:01 02/05/23 06:00 02/05/23 05:50 02/05/23 05:40 02/05/23 05:30 02/05/23 05:20 02/05/23 05:10 02/05/23 05:01 02/05/23 05:01 02/05/23 05:00 02/05/23 04:50 02/05/23 04:40 02/05/23 04:30 02/05/23 04:20 02/05/23 04:10 02/05/23 04:01 02/05/23 04:01 02/05/23 04:00 02/05/23 03:50 02/05/23 03:40 02/05/23 03:30 02/05/23 03:20 02/05/23 03:10 02/05/23 03:01 02/05/23 03:01 02/05/23 03:00 02/05/23 02:50 02/05/23 02:40 02/05/23 02:30 02/05/23 02:20 02/05/23 02:10 02/05/23 02:01 02/05/23 02:01 02/05/23 02:00 02/05/23 01:50 02/05/23 01:40 02/05/23 01:30 02/05/23 01:20 02/05/23 01:10 02/05/23 01:01 02/05/23 01:01 02/05/23 01:00 02/05/23 00:50 02/05/23 00:40 02/05/23 00:30 02/05/23 00:20 02/05/23 00:10 02/05/23 00:01 02/05/23 00:01 02/05/23 00:00 02/04/23 23:50 02/04/23 23:40 02/05/23 01:59 02/04/23 23:30 02/04/23 23:01 02/04/23 23:01 02/04/23 23:00 02/04/23 23:56 02/04/23 22:40 02/04/23 22:30 02/04/23 22:20 02/04/23 22:10 02/04/23 22:01 02/04/23 22:01 02/04/23 22:00 02/04/23 21:50 02/04/23 21:40 02/04/23 21:30 02/04/23 21:20 02/04/23 21:10 02/04/23 21:02 02/04/23 21:02 02/04/23 21:00 02/04/23 20:50 02/04/23 20:40 02/04/23 20:30 02/04/23 20:20 02/04/23 20:10 02/04/23 20:01 02/04/23 20:01 02/04/23 20:00 02/04/23 19:58 02/04/23 19:58 02/04/23 19:50 02/04/23 19:40 02/04/23 19:30 02/04/23 19:20 02/04/23 19:10 02/04/23 19:01 02/04/23 19:01 02/04/23 19:00 02/04/23 20:00 02/04/23 17:04 Cardiovascular RRR, no murmur, no edema Respiratory normal respiratory effort, lungs clear to auscultation Pre-Sedation Airway Assessment Smoking Status: Former smoker Hx Sleep Apnea: No Hx Difficult Intubation: No Short, Thick Neck: No Thyromental Distance: > or= 3.5 Finger Breadths Oral Cavity: + WNL Mallampati Class: III ASA: ASA3 Procedure Planning Contraindications for Sedation: none Current Medications Reviewed: Yes Notes The planned sedation has been discussed with the patient. Informed Consent was obtained. I have identified the patient, determined the appropriateness of sedation and have assessed the patient immediately prior to the procedure. All medicine(s) and interventions are by my order.
--- NOTE | 2023-02-05 16:14 | Cardiac Catheterization ---
[facility] Data: Credit Control Clerk Cardiac Status Clinical evaluation leading to the procedure CAD Presenation: Sx unlikely to be ischemic Diagnostic Physicians Name: Chase Kapadia MD Closure Device Recommendations: Medical Therapy and/or Counseling Cardiac Cath Procedure Full Procedure Date February 05, 2023 Pre-Procedure Diagnosis Pre-Procedure Diagnosis: Arrhythmia AUC Score AUC Score: 7 Post-Procedure Diagnosis Post-Procedure Diagnosis: Cardiothoracic Finding (Complete heart block) Procedure(s) Performed Procedure(s) Performed: Temporary Pacemaker and Ultrasound Guided Vascular Access Retail Service Lead Merchandiser Chase Kapadia MD Sponge Clipper(s) Valentín Estimated Blood Loss Estimated Blood Loss: 5 Medication(s) Medication(s): Fentanyl, Lidocaine 1% and Versed Summary of Findings TRANSVENOUS TEMPORARY PACEMAKER PLACEMENT Indication: Lyme carditis, symptomatic bradycardia, complete heart block Procedure: Moderate sedation with Versed/fentanyl Local sedation with 1% lidocaine Under ultrasound guidance right internal jugular vein accessed 7 Fr sheath placed to right IJ Transvenous pacing wire navigated into RV Pacing confirmed to outputs <1 mA Sheath sutured in place Final pacemaker settings: VVI at 60 bpm, output 5 mA Summary: 1. Successful placement of transvenous temporary pacemaker Recommendations: Continued monitoring on telemetry in ICU Wean off dopamine Hemodynamics Rest Ao:: -- Final Ao: -- LV: -- Recommendations Recommendations: Medical Therapy and/or Counseling Specimens Specimens: None Radiation Exposure (mGy) 0.9 Contrast (mls) -- Anesthesia Moderate Procedural Complication(s) None Disposition ICU I attest to the content of the Intraoperative Record and any orders documented therein. Any exceptions are noted below. [facility] Card Cath Procedure Codes Therapeutic Services & Ancillary Procedure 1: Cardiovascular Tx and Anc Procedures: 08871 Ultrasonic Guidance Vascular Access Procedure 2: Cardiovascular Tx and Anc Procedures: 03251 Temp Pacer Insert Moderate Sedation Procedure 1: Sedation/Anesthesia: 42564 Mod Sedation by the same physician;Init15 Min Child Age 5 & Up PG Care Time/CCT Total # of Minutes Spent Total Time Spent with Patient: Total time spent is greater than 50% in coordination of care (as documented) at patient's floor/unit and/or counseling patient:
[2023-02-05] MEDS ORDERED: ONDANSETRON INJ 2 MG/ML 2 ML VIAL ONE (17:00)
[2023-02-05] MEDS: ACETAMINOPHEN 325 MG TAB PO PRN ×2 (18:01→22:36)
--- NOTE | 2023-02-05 18:04 | XRay Report ---
XR chest 1V portable HISTORY: placement transvenous pacer COMPARISON: Chest 02/03/2023. FINDINGS: There are low lung volumes. No pneumothorax. The cardiac silhouette is mildly enlarged. The re is mild central pulmonary vascular congestion without overt edema. Trace bilateral pleural effusio ns are noted. A right jugular pacemaker wire terminates in the expected location of the right ventric le. The lead appears intact. IMPRESSION: 1. A right jugular transvenous pacemaker appears intact. No pneumothorax. 2. Cardiomegaly with mild pulmonary vascular congestion and trace bilateral pleural effusions. ACT 112: Negative or not required by law. Electronically signed by: Carlos Lopez M.D. 02/05/2023 6:03 PM
[2023-02-05 18:44] LABS: BUN Creatinine Ratio 8.2 (10-20); Creatinine Clr Calc Pharmacy 196.6 ml/min; Est GFR (African American) 140.4 ml/min; Est GFR (Non-African American) 121.1 ml/min; Magnesium 2.1 mg/dl (1.7-2.4); Phosphorus 3.6 mg/dl (2.5-4.9)
[2023-02-05] MEDS ORDERED: SODIUM CHLORIDE 0.9% 1000ML 500 ML IV ONE (19:32)
[2023-02-05] MEDS: cefTRIAXone SODIUM 2,000 MG in DEXTROSE 5% 50 ML IV SCH (19:55)
[2023-02-06 05:07] LABS: Basophils # (auto) 0.04 K/uL (0-0.2); Basophils % (auto) 0.6 %; Eosinophils # (auto) 0.15 K/uL (0-0.50); Eosinophils % (auto) 2.1 %; Hematocrit (blood only) 34.5 % (42.0-52.0); Hemoglobin 11.5 g/dl (14.0-18.0); Immature Granulocytes # (auto) 0.02 K/uL (0.01-0.20); Immature Granulocytes % (auto) 0.3 %; Lymphocytes # (auto) 2.17 K/uL (1.2-3.4); Lymphocytes % (auto) 30.5 %; Mean Corpuscular Hemoglobin 29.3 pg (25.0-34.0); Mean Corpuscular Hgb Conc 33.3 g/dL (32.0-36.0); Mean Corpuscular Volume 87.8 fL (80.0-100.0); Mean Platelet Volume 10.1 fL (9.4-12.4); Neutrophils # (auto) 4.24 K/uL (1.40-6.50); Neutrophils % (auto) 59.5 %; Platelet Count 202 K/uL (130-400); RDW Coefficient of Variation 12.5 % (11.5-14.5); RDW Standard Deviation 39.9 fL (36.4-46.3); Red Blood Count 3.93 M/uL (4.70-6.10); White Blood Count 7.12 K/ul (4.8-10.8)
[2023-02-06 05:22] LABS: Anion Gap 5 (3-11); Blood Urea Nitrogen 7 mg/dl (6-23); Calcium 8.8 mg/dl (8.6-10.3); Carbon Dioxide 24 mmol/L (21-32); Chloride 109 mmol/L (98-107); Creatinine Clr Calc Pharmacy 238.8 ml/min; Est GFR (African American) > 150.0 ml/min; Est GFR (Non-African American) 131.2 ml/min; Glucose 89 mg/dl (70-99(Fasting)); Magnesium 1.9 mg/dl (1.7-2.4); Phosphorus 3.9 mg/dl (2.5-4.9); Potassium 4.3 mmol/L (3.5-5.1); Sodium 138 mmol/L (136-145)
--- NOTE | 2023-02-06 07:07 | Cardiology Progress Note ---
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 Bradycardia EKG compatible with Complete Heart Block w/ junctional escape SBP is WNL No syncope Lyme IgM + Target lesion on back Plans for ABX to treat acute Lyme Disease ECHO - preliminary - no evidence of Cardiomyopathy of severe valvular pathology No evidence of Heart Failure No Pauses on Telemetry Transient support with Dopamine; Dopamine currently OFF Now with Temp Wire in place from [place] Plans: * Continue ABX for Lyme infection * Pacing Pads in place in the event of emergent need for transcutaneous pacing * Atropine at bedside * Limited ambulation given complete heart block * DVT PPX * K+ goal 4.5-5 * Please replete K+ - consider KDUR 40 meq po x1 * Mag++ goal >2 * Continue Magnesium supplementation * TSH - 0.9 - WNL * Dopamine (OFF) * Plans were made to proceed with pacing wire given that he was developing ectopy on Dopamine * Pacer set to 60 BPM - Pt captures at less than 1 mV * Pt's underlying HR upper 40's - appears to be CHB with junctional escape * Plans to decrease backup rate to 50 BPM * Explained to patient that we are hopeful that his bradycardia will resolve * Continue supportive care * Discussed plans with Critical Care Nursing + Family Surjit Srivastava (2) Heart block: Plan Continue IV Ceftriaxone and dopamine infusion Maintain pacer pads on patient Uninterrupted telemetry monitoring, ICU, daily EKG's Admission and Anticipated Discharge Date Admission Date: February 03, 2023 Supervising Physician Co-Signing Physician Notes 27 yo man Bradycardia EKG compatible with Complete Heart Block w/ junctional escape SBP is WNL No syncope Lyme IgM + Target lesion on back Plans for ABX to treat acute Lyme Disease ECHO - preliminary - no evidence of Cardiomyopathy of severe valvular pathology No evidence of Heart Failure No Pauses on Telemetry Events overnight: * Pt's HR noted to drop into the 40's * Pt was asymptomatic * Pt was transferred to ICU for close monitoring * I personally connected with ICU Staff * Dopamine started in response to HR's in the 40's * Overnight - no prolonged pauses * Pt sans Sx Plans: * PADs in place in the event of emergent need for transcutaneous pacing * Atropine at bedside * Limited ambulation given complete heart block * DVT PPX * K+ goal 4.5-5 * Please replete K+ - consider KDUR 40 meq po x1 * Mag++ goal >2 * TSH - 0.9 - WNL * Continue Dopamine to maintain HR * May need to consider PICC line for ongoing Dopamine. * Explained to patient that we are hopeful that his bradycardia will resolve * Continue supportive care Surjit Srivastava Subjective Events Overnight: * Temporary pacer placed via Right IJ * No immediate complications reported * Dopamine weaned to off * No chest pain or dyspnea reported Physical Exam Physical Exam: Overweight man Mentation - WNL RIJ Pacer in place S1S2 no pericardial rub CTA B on anterior exam No C/C/E Results & Data Vital Signs (Past 12 Hours) Vital Signs Temp Pulse Resp BP Pulse Ox 02/06/23 06:00 60 02/06/23 05:20 60 14 97 02/06/23 05:10 60 9 L 96 02/06/23 05:00 60 13 96 02/06/23 05:00 122/65 02/06/23 04:50 60 0 L 95 02/06/23 04:40 60 0 L 96 02/06/23 04:30 60 0 L 97 02/06/23 04:20 60 14 96 02/06/23 04:10 60 2 L 96 02/06/23 04:00 60 23 97 02/06/23 04:00 125/63 02/06/23 03:50 60 17 97 02/06/23 03:40 60 23 99 02/06/23 03:30 60 21 98 02/06/23 03:20 60 21 99 02/06/23 03:10 60 21 97 02/06/23 03:00 60 21 99 02/06/23 03:00 120/58 L 02/06/23 02:50 60 25 H 98 02/06/23 02:40 60 18 97 02/06/23 02:30 60 19 98 02/06/23 02:20 60 19 98 02/06/23 02:10 60 17 95 02/06/23 02:00 60 13 99 02/06/23 02:00 113/56 L 02/06/23 01:50 60 0 L 97 02/06/23 01:40 60 0 L 97 02/06/23 01:30 60 0 L 97 02/06/23 02:00 60 02/06/23 01:20 60 0 L 97 02/06/23 01:10 60 0 L 97 02/06/23 01:00 60 0 L 95 02/06/23 01:00 134/56 L 02/06/23 00:50 60 0 L 96 02/06/23 00:40 60 0 L 97 02/06/23 00:30 60 17 94 02/06/23 00:30 119/54 L 02/06/23 00:20 60 22 96 02/06/23 00:10 60 18 96 02/06/23 00:00 60 24 95 02/06/23 00:00 115/55 L 02/05/23 23:50 60 21 97 02/05/23 23:40 60 25 H 97 02/05/23 23:30 60 17 96 02/05/23 23:30 114/52 L 02/05/23 23:20 60 0 L 94 02/05/23 23:10 60 24 98 02/05/23 23:01 100/44 L 02/05/23 23:01 60 24 97 02/05/23 23:00 60 3 L 97 02/05/23 22:50 60 17 97 02/05/23 22:40 60 16 96 02/05/23 22:30 60 2 L 93 02/05/23 22:30 131/54 L 02/05/23 22:20 60 23 96 02/05/23 22:10 60 19 93 02/05/23 22:00 60 21 93 02/05/23 22:00 128/63 02/05/23 21:50 60 20 93 02/05/23 21:40 60 22 94 02/05/23 21:31 60 26 H 96 02/05/23 21:31 103/47 L 02/05/23 21:30 60 17 94 02/05/23 21:20 60 7 L 94 02/05/23 21:10 60 23 95 02/05/23 21:00 60 14 95 02/05/23 21:00 105/53 L 02/06/23 01:23 37 C 02/05/23 22:07 60 02/05/23 20:50 60 17 94 02/05/23 20:40 60 21 94 02/05/23 20:30 60 25 H 95 02/05/23 20:30 117/50 L 02/05/23 20:20 60 23 94 02/05/23 20:10 60 24 93 02/05/23 20:00 62 21 94 02/05/23 20:00 120/56 L 02/05/23 19:50 60 23 93 02/05/23 19:40 60 26 H 95 02/05/23 19:30 60 27 H 95 02/05/23 19:30 121/53 L 02/05/23 19:20 60 20 97 02/05/23 19:10 60 27 H 96 02/05/23 20:55 36.9 C Laboratory Results CBC 02/06/23 Range/Units 04:21 WBC 7.12 (4.8-10.8) K/ul RBC 3.93 L (4.70-6.10) M/uL Hgb 11.5 L (14.0-18.0) g/dl Hct 34.5 L (42.0-52.0) % Plt Count 202 (130-400) K/uL Neut # (Auto) 4.24 (1.40-6.50) K/uL Lymph # (Auto) 2.17 (1.2-3.4) K/uL [place] # (Auto) 0.50 (0.11-0.59) K/uL Eos # (Auto) 0.15 (0-0.50) K/uL Baso # (Auto) 0.04 (0-0.2) K/uL Comprehensive Metabolic Panel 02/05/23 02/06/23 Range/Units 18:13 04:21 Sodium 137 138 (136-145) mmol/L Potassium 4.0 4.3 (3.5-5.1) mmol/L Chloride 106 109 H (98-107) mmol/L Carbon Dioxide 24 24 (21-32) mmol/L BUN 7 7 (6-23) mg/dl Creatinine 0.85 0.70 (0.6-1.4) mg/dl Glucose 127 H 89 (70-99(Fasting)) mg/dl Calcium 9.0 8.8 (8.6-10.3) mg/dl Intake and Output 02/05/23 02/06/23 02/06/23 22:59 06:59 14:59 Intake Total 589.269 / 3428.335 510.718 / 3428.335 0 / 0 Output Total 400 / 1100 Balance 589.269 / 2328.335 110.718 / 2328.335 0 / 0 Intake: IV 589.269 / 2588.335 510.718 / 2588.335 0 / 0 DOPamine / D5W 400 mg In 250 ml 309.269 / 1034.335 10.718 / 1034.335 0 / 0 @ 2 MCG/KG/MIN 10.875 mls/hr IV .Q23H [facility] Rx#:[id number] Doxycycline Hyclate 100 mg In 110 / 220 Dextrose 5% 100 ml @ 50 mls/hr IV Q12H [facility] Rx#:[id number] Magnesium Sulfate / D5w 1 gm In 100 / 100 100 ml @ 50 mls/hr IV ONE ONE Rx#:[id number] Sodium Chloride 0.9% 1000ML 500 500 / 500 ml @ 125 mls/hr IV .Q4H [facility] Rx #:[id number] cefTRIAXone SODIUM 2,000 mg In 70 / 70 Dextrose 5% 50 ml @ 100 mls/hr IV Q24H [facility] Rx#:[id number] Output: Urine 400 / 1100 Other: Weight 146.5 kg Weight Measurement Method [facility] Medications Administered Current Inpatient Medications Acetaminophen (Acetaminophen 325 Mg Tab) 650 mg PO Q4H PRN PRN Reason: Pain or Fever Stop: 03/06/23 00:19 Last Admin: 02/05/23 22:36 Dose: 650 mg Ceftriaxone Sodium 2,000 mg/ (Dextrose) 70 mls @ 100 mls/hr IV Q24H [facility]; Protocol Stop: 02/14/23 20:59 Last Infusion: 02/05/23 20:36 Dose: Infused Magnesium Oxide (Magnesium Oxide 400 Mg Tab) 400 mg PO BID [facility] Stop: 02/06/23 21:01 Nitroglycerin (Nitroglycerin Sl 0.4 Mg/Tab Tab) 0.4 mg SL Q5M PRN PRN Reason: Chest Pain Stop: 03/06/23 00:19
--- NOTE | 2023-02-06 07:55 | Critical Care Progress Note ---
Date of Service February 06, 2023 Assessment & Plan (1) Lyme carditis: Plan: Reason critically ill: Patient is a 27 yo here with no significant PMH who presented with SOB and chest tightness x1 day and who was admitted for lyme carditis associated with AV block. Neuro: No neurologic concerns Cardiac: AV block secondary to lyme carditis s/p temporary transvenous pacemaker placed 02/05 - no further cardiac sx - previously on dopamine gtt to maintain HR >60; has been off since 02/05 evening - paused pacemaker and bradycardic sinus rhythm noted; after discussion with cardiology, will plan for possible trial off pacer today - maintain external pacer pads, continue tele monitoring Respiratory: No acute concerns GI: No acute concerns - regular diet - no GI ppx necessary Renal/electrolytes: No significant electrolyte derangement or renal function concerns - replace electrolytes as needed : No acute concerns Endo: No chronic or acute concerns Heme: Leukocytosis- resolved - stable Hgb and Hct, continue to monitor ID: Lyme disease w/ associated carditis - pt currently on IV doxy and IV ceftriaxone; will d/c doxy - continue IV ABX until AV block resolves/WI <300 ms then will switch to PO only for total course of ABX 14-21 days Integumentary: Erythema migrans secondary to lyme disease - no rashes noted on today's exam Lines/IV access: right PIV intact DVT ppx: SCDs Please refer to Dr. Gasca's documentation for any further recommendations. (2) Heart block: (3) Temporary transvenous cardiac pacemaker present: Admission and Anticipated Discharge Date Admission Date: February 03, 2023 Supervising Physician Co-Signing Physician Notes Patient seen and examined. EMR reviewed. Discussed on multidisciplinary rounds. Agree with assessment plan as noted by family practice resident. The patient's pacemaker was paused this morning. He appears to be in a sinus bradycardia rhythm underneath the pacemaker. He was asymptomatic while the pacing was paused and blood pressure remained stable. Will defer to cardiology long-term management of the temporary pacing wire. Discontinue IV doxycycline. IV Rocephin should be adequate. Once his AV block resolves, can likely transition to oral cefuroxime or p.o. doxycycline which will need to be continued for a total of 21 days. Once the pacing wires discontinued, the patient can downgrade out of the intensive care unit back to telemetry status. When he transfers, critical care will sign off. Subjective Pt seen at bedside this AM. He is conversant and pleasant. He denies any further chest pain, chest tightness, or SOB at rest. He has not been out of bed. He does complain of "soreness" of his right neck at the site of his pacemaker placement. He denies abdominal pain and leg pain. Review of Systems Review of Systems: As per HPI Physical Exam Physical Exam: Constitutional: well appearing, no acute distress HEENT: normocephalic, no conjunctival injection CV: regular rhythm, bradycardic, no murmur, no LE edema Respiratory: Clear to auscultation bilaterally. No rhonchi, wheezes, or crackles. No increased work of breathing GI: soft, nondistended, positive bowel sounds MSK: no gross deformities noted Skin: warm, dry, no rashes noted Neuro: alert, oriented, no FND noted Results & Data Results & Data Vital Signs (Past 12 Hours) Vital Signs Temp Pulse Resp BP Pulse Ox 02/06/23 06:00 60 02/06/23 05:20 60 14 97 02/06/23 05:10 60 9 L 96 02/06/23 05:00 60 13 96 02/06/23 05:00 122/65 02/06/23 04:50 60 0 L 95 02/06/23 04:40 60 0 L 96 02/06/23 04:30 60 0 L 97 02/06/23 04:20 60 14 96 02/06/23 04:10 60 2 L 96 02/06/23 04:00 60 23 97 02/06/23 04:00 125/63 02/06/23 03:50 60 17 97 02/06/23 03:40 60 23 99 02/06/23 03:30 60 21 98 02/06/23 03:20 60 21 99 02/06/23 03:10 60 21 97 02/06/23 03:00 60 21 99 02/06/23 03:00 120/58 L 02/06/23 02:50 60 25 H 98 02/06/23 02:40 60 18 97 02/06/23 02:30 60 19 98 02/06/23 02:20 60 19 98 02/06/23 02:10 60 17 95 02/06/23 02:00 60 13 99 02/06/23 02:00 113/56 L 02/06/23 01:50 60 0 L 97 02/06/23 01:40 60 0 L 97 02/06/23 01:30 60 0 L 97 02/06/23 02:00 60 02/06/23 01:20 60 0 L 97 02/06/23 01:10 60 0 L 97 02/06/23 01:00 60 0 L 95 02/06/23 01:00 134/56 L 02/06/23 00:50 60 0 L 96 02/06/23 00:40 60 0 L 97 02/06/23 00:30 60 17 94 02/06/23 00:30 119/54 L 02/06/23 00:20 60 22 96 02/06/23 00:10 60 18 96 02/06/23 00:00 60 24 95 02/06/23 00:00 115/55 L 02/05/23 23:50 60 21 97 02/05/23 23:40 60 25 H 97 02/05/23 23:30 60 17 96 02/05/23 23:30 114/52 L 02/05/23 23:20 60 0 L 94 02/05/23 23:10 60 24 98 02/05/23 23:01 100/44 L 02/05/23 23:01 60 24 97 02/05/23 23:00 60 3 L 97 02/05/23 22:50 60 17 97 02/05/23 22:40 60 16 96 02/05/23 22:30 60 2 L 93 02/05/23 22:30 131/54 L 02/05/23 22:20 60 23 96 02/05/23 22:10 60 19 93 02/05/23 22:00 60 21 93 02/05/23 22:00 128/63 02/05/23 21:50 60 20 93 02/05/23 21:40 60 22 94 02/05/23 21:31 60 26 H 96 02/05/23 21:31 103/47 L 02/05/23 21:30 60 17 94 02/05/23 21:20 60 7 L 94 02/05/23 21:10 60 23 95 02/05/23 21:00 60 14 95 02/05/23 21:00 105/53 L 02/06/23 01:23 37 C 02/05/23 22:07 60 02/05/23 20:50 60 17 94 02/05/23 20:40 60 21 94 02/05/23 20:30 60 25 H 95 02/05/23 20:30 117/50 L 02/05/23 20:20 60 23 94 02/05/23 20:10 60 24 93 02/05/23 20:00 62 21 94 02/05/23 20:00 120/56 L 02/05/23 19:50 60 23 93 02/05/23 19:40 60 26 H 95 02/05/23 20:55 36.9 C Resident Activity Tracking Resident Involvement: Resident Care Provided Care Provided: Adult Hospital Medicine (ICU)
[2023-02-06] MEDS: POTASSIUM CHLORIDE CRTAB 20 MEQ TABCR PO SCH (09:04)
--- NOTE | 2023-02-06 09:54 | Hospitalist Progress Note ---
Date of Service February 06, 2023 Assessment & Plan (1) Heart block: (2) Lyme carditis: Plan: Lyme carditis Heart block 27 yo M presents with shortness with exertion chest tightness and palpitations and EKG w/ heart block. ER discussed with the cardiology - Lyme carditis and pt's Lyme screen came back positive. Lyme carditis Lyme screen positive ECG c/e complete heart block w/junctional rhythm started on IV Rocephin and Doxy on admission, will continue D-dimer is elevated but CT chest unremarkable Mild elevation of troponin most likely demand ischemia we will follow serial enzymes and echocardiogram Echo obtained -mild concentric LVH. LV wall motion is abnormal. LVEF 55 to 60%. RV is normal in size and function. There is no pericardial effusion. There is no significant valvular disease. PADs placed in the event of emergent need for transcutaneous pacing Atropine at bedside Limited ambulation Keep K>4, Mag >2 02/05 Pt's HR down to 40s and so pt was transferred to ICU yesterday and started on dopamine overnight. Cardiology continues to follow closely. 02/06 Pt is s/p transvenous pacer placement yesterday. wean off dopamine. DVT prophylaxis SCDs Full code Admission and Anticipated Discharge Date Admission Date: February 03, 2023 Subjective Pt seen in follow up of lyme carditis , complete heart block Currently laying in bed in NAD Yesterday, transvenous pacer was placed denies any chest pain, shortness of breath, palpitations at this time. No dizziness. Pt's present at the bedside and updated. Review of Systems Review of Systems: All systems reviewed & are unremarkable except as noted in Subjective Physical Exam Physical Exam: General- young obe se M in NAD Head- atraumatic Eyes - PERRLA ENT- [place] pharynx clear Nec k- R IJ (transven ous pacer) Lungs- clear to ausculta tion and percussio n, no added sounds Heart- regular r hythm; no murmur Abdomen- normal oni wel sounds, soft, nontender, no dist ension Extremitie s- no pretibial ed karine, no erythema s een Neuro- alert, oriented x 3; PER RL, no facial pal sy; no dysarthria; moves extremities . Skin- warm & dr y blotches of eryt hematosus rash see n on lower extremi ties Results & Data Results & Data Vital Signs (Past 12 Hours) Vital Signs Temp Pulse Resp BP Pulse Ox O2 Del Method 02/06/23 08:00 60 25 H 150/65 H 98 Room Air 02/06/23 07:00 60 22 150/70 H 98 Room Air 02/06/23 07:56 36.4 C L 02/06/23 06:00 60 02/06/23 05:20 60 14 97 02/06/23 05:10 60 9 L 96 02/06/23 05:00 60 13 96 02/06/23 05:00 122/65 02/06/23 04:50 60 0 L 95 02/06/23 04:40 60 0 L 96 02/06/23 04:30 60 0 L 97 02/06/23 04:20 60 14 96 02/06/23 04:10 60 2 L 96 02/06/23 04:00 60 23 97 02/06/23 04:00 125/63 02/06/23 03:50 60 17 97 02/06/23 03:40 60 23 99 02/06/23 03:30 60 21 98 02/06/23 03:20 60 21 99 02/06/23 03:10 60 21 97 02/06/23 03:00 60 21 99 02/06/23 03:00 120/58 L 02/06/23 02:50 60 25 H 98 02/06/23 02:40 60 18 97 02/06/23 02:30 60 19 98 02/06/23 02:20 60 19 98 02/06/23 02:10 60 17 95 02/06/23 02:00 60 13 99 02/06/23 02:00 113/56 L 02/06/23 01:50 60 0 L 97 02/06/23 01:40 60 0 L 97 02/06/23 01:30 60 0 L 97 02/06/23 02:00 60 02/06/23 01:20 60 0 L 97 02/06/23 01:10 60 0 L 97 02/06/23 01:00 60 0 L 95 02/06/23 01:00 134/56 L 02/06/23 00:50 60 0 L 96 02/06/23 00:40 60 0 L 97 02/06/23 00:30 60 17 94 02/06/23 00:30 119/54 L 02/06/23 00:20 60 22 96 02/06/23 00:10 60 18 96 02/06/23 00:00 60 24 95 02/06/23 00:00 115/55 L 02/05/23 23:50 60 21 97 02/05/23 23:40 60 25 H 97 02/05/23 23:30 60 17 96 02/05/23 23:30 114/52 L 02/05/23 23:20 60 0 L 94 02/05/23 23:10 60 24 98 02/05/23 23:01 100/44 L 02/05/23 23:01 60 24 97 02/05/23 23:00 60 3 L 97 02/05/23 22:50 60 17 97 02/05/23 22:40 60 16 96 02/05/23 22:30 60 2 L 93 02/05/23 22:30 131/54 L 02/05/23 22:20 60 23 96 02/05/23 22:10 60 19 93 02/05/23 22:00 60 21 93 02/05/23 22:00 128/63 02/06/23 01:23 37 C 02/05/23 22:07 60 Laboratory Results 02/06/23 02/06/23 02/05/23 Range/Units 04:21 04:21 18:13 WBC 7.12 (4.8-10.8) K/ul RBC 3.93 L (4.70-6.10) M/uL Hgb 11.5 L (14.0-18.0) g/dl Hct 34.5 L (42.0-52.0) % MCV 87.8 (80.0-100.0) fL MCH 29.3 (25.0-34.0) pg MCHC 33.3 (32.0-36.0) g/dL RDW Std Deviation 39.9 (36.4-46.3) fL RDW Coeff of Debby 12.5 (11.5-14.5) % Plt Count 202 (130-400) K/uL MPV 10.1 (9.4-12.4) fL Immature Gran % (Auto) 0.3 % Neut % (Auto) 59.5 % Lymph % (Auto) 30.5 % [place] % (Auto) 7.0 % Eos % (Auto) 2.1 % Baso % (Auto) 0.6 % Neut # (Auto) 4.24 (1.40-6.50) K/uL Lymph # (Auto) 2.17 (1.2-3.4) K/uL [place] # (Auto) 0.50 (0.11-0.59) K/uL Eos # (Auto) 0.15 (0-0.50) K/uL Baso # (Auto) 0.04 (0-0.2) K/uL Immature Gran # (Auto) 0.02 (0.01-0.20) K/uL Sodium 138 137 (136-145) mmol/L Potassium 4.3 4.0 (3.5-5.1) mmol/L Chloride 109 H 106 (98-107) mmol/L Carbon Dioxide 24 24 (21-32) mmol/L Anion Gap 5 7 (3-11) BUN 7 7 (6-23) mg/dl Creatinine 0.70 0.85 (0.6-1.4) mg/dl Est Cr Clr Drug Dosing 238.8 196.6 ml/min Est GFR ( Amer) > 150.0 140.4 ml/min Est GFR (Non-Af Amer) 131.2 121.1 ml/min BUN/Creatinine Ratio 10.0 8.2 L (10-20) Glucose 89 127 H (70-99(Fasting)) mg/dl Calcium 8.8 9.0 (8.6-10.3) mg/dl Phosphorus 3.9 3.6 (2.5-4.9) mg/dl Magnesium 1.9 2.1 (1.7-2.4) mg/dl Medications Administered Current Inpatient Medications Acetaminophen (Acetaminophen 325 Mg Tab) 650 mg PO Q4H PRN PRN Reason: Pain or Fever Stop: 03/06/23 00:19 Last Admin: 02/05/23 22:36 Dose: 650 mg Ceftriaxone Sodium 2,000 mg/ (Dextrose) 70 mls @ 100 mls/hr IV Q24H JANETTE; Protocol Stop: 02/14/23 20:59 Last Infusion: 02/05/23 20:36 Dose: Infused Magnesium Oxide (Magnesium Oxide 400 Mg Tab) 400 mg PO BID [facility] Stop: 02/06/23 21:01 Nitroglycerin (Nitroglycerin Sl 0.4 Mg/Tab Tab) 0.4 mg SL Q5M PRN PRN Reason: Chest Pain Stop: 03/06/23 00:19
--- NOTE | 2023-02-06 10:07 | Billing Data ---
Date of Service February 06, 2023 Coding Level of Care Code 52334 SUB INP/OBS CARE
[2023-02-06] MEDS: MAGNESIUM OXIDE 400 MG TAB PO SCH ×2 (12:00→20:52)
[2023-02-06] MEDS: cefTRIAXone SODIUM 2,000 MG in DEXTROSE 5% 50 ML IV SCH (20:51)
[2023-02-07 03:12] LABS: 18KDIGG Band NON-REACTIVE; 23KDIGG Band NON-REACTIVE; 23KDIGM Band REACTIVE; 28KDIGG Band NON-REACTIVE; 30KDIGG Band NON-REACTIVE; 39KDIGG Band NON-REACTIVE; 39KDIGM Band REACTIVE; 41KDIGG Band REACTIVE; 41KDIGM Band REACTIVE; 45KDIGG Band NON-REACTIVE; 58KDIGG Band REACTIVE; 66KDIGG Band NON-REACTIVE; 93KDIGG Band NON-REACTIVE; Lyme Antibodies, WB IgG NEGATIVE (NEGATIVE); Lyme Antibodies, WB IgM POSITIVE (NEGATIVE)
[2023-02-07 04:31] LABS: Basophils # (auto) 0.03 K/uL (0-0.2); Basophils % (auto) 0.4 %; Eosinophils # (auto) 0.16 K/uL (0-0.50); Eosinophils % (auto) 2.1 %; Hematocrit (blood only) 35.7 % (42.0-52.0); Immature Granulocytes # (auto) 0.03 K/uL (0.01-0.20); Immature Granulocytes % (auto) 0.4 %; Lymphocytes # (auto) 2.74 K/uL (1.2-3.4); Lymphocytes % (auto) 36.1 %; Mean Corpuscular Hemoglobin 29.1 pg (25.0-34.0); Mean Corpuscular Hgb Conc 33.6 g/dL (32.0-36.0); Mean Corpuscular Volume 86.4 fL (80.0-100.0); Monocytes # (auto) 0.48 K/uL (0.11-0.59); Monocytes % (auto) 6.3 %; Neutrophils # (auto) 4.15 K/uL (1.40-6.50); Neutrophils % (auto) 54.7 %; Platelet Count 201 K/uL (130-400); RDW Coefficient of Variation 12.5 % (11.5-14.5); RDW Standard Deviation 39.3 fL (36.4-46.3); Red Blood Count 4.13 M/uL (4.70-6.10); White Blood Count 7.59 K/ul (4.8-10.8)
[2023-02-07 04:44] LABS: BUN Creatinine Ratio 10.1 (10-20); Calcium 8.8 mg/dl (8.6-10.3); Creatinine Clr Calc Pharmacy 212.6 ml/min; Est GFR (African American) 144.7 ml/min; Est GFR (Non-African American) 124.8 ml/min; Potassium 4.3 mmol/L (3.5-5.1)
--- NOTE | 2023-02-07 06:37 | Cardiology Progress Note ---
Date of Service February 07, 2023 Assessment & Plan (1) Lyme carditis: Plan: 27 yo man Bradycardia EKG compatible with Complete Heart Block w/ junctional escape SBP is WNL No syncope Lyme IgM + Target lesion on back Plans for ABX to treat acute Lyme Disease ECHO - preliminary - no evidence of Cardiomyopathy of severe valvular pathology No evidence of Heart Failure No Pauses on Telemetry Transient support with Dopamine; Dopamine currently OFF Now with Temp Wire in place from RIJ Plans: * Continue ABX for Lyme infection * Pacing Pads in place in the event of emergent need for transcutaneous pacing * Atropine at bedside * Limited ambulation given complete heart block * DVT PPX * K+ goal 4.5-5 * Mag++ goal >2 * TSH - 0.9 - WNL * Dopamine (OFF) * Pacing wire in place - stable * Pacer set to 50 BPM - Pt captures at less than 1 mV * Pt's underlying HR upper 40's - appears to still be in CHB with junctional escape * Explained to patient that we are hopeful that his bradycardia will resolve * Continue supportive care * Connect with EP staff * Discussed plans with Critical Care Nursing + Family Surjit Srivastava (2) Heart block: Admission and Anticipated Discharge Date Admission Date: February 03, 2023 Subjective Events overnight: * None reported Subjective: * No complaints Review of Systems Review of Systems: All systems reviewed & are unremarkable except as noted in HPI & below Physical Exam Physical Exam: Overweight man Mentation - WNL RIJ Pacer in place S1S2 no pericardial rub CTA B on anterior exam No C/C/E Results & Data Vital Signs (Past 12 Hours) Vital Signs Pulse Resp BP Pulse Ox Pulse Ox 02/07/23 00:01 139/61 02/07/23 00:01 52 L 18 94 02/07/23 00:00 52 L 25 H 95 02/06/23 23:00 50 L 20 97 02/06/23 23:00 133/60 02/06/23 22:01 51 L 24 96 02/06/23 22:01 129/62 02/06/23 22:00 50 L 24 96 02/06/23 21:01 138/63 02/06/23 21:01 50 L 20 98 02/06/23 21:00 50 L 24 96 02/06/23 20:01 50 L 26 H 98 02/06/23 20:01 147/49 H 02/06/23 20:00 50 L 25 H 98 02/06/23 19:00 50 L 19 97 02/06/23 19:00 152/60 H 02/07/23 00:00 99 Laboratory Results CBC 02/07/23 Range/Units 04:07 WBC 7.59 (4.8-10.8) K/ul RBC 4.13 L (4.70-6.10) M/uL Hgb 12.0 L (14.0-18.0) g/dl Hct 35.7 L (42.0-52.0) % Plt Count 201 (130-400) K/uL Neut # (Auto) 4.15 (1.40-6.50) K/uL Lymph # (Auto) 2.74 (1.2-3.4) K/uL [place] # (Auto) 0.48 (0.11-0.59) K/uL Eos # (Auto) 0.16 (0-0.50) K/uL Baso # (Auto) 0.03 (0-0.2) K/uL Comprehensive Metabolic Panel 02/07/23 Range/Units 04:06 Sodium 139 (136-145) mmol/L Potassium 4.3 (3.5-5.1) mmol/L Chloride 109 H (98-107) mmol/L Carbon Dioxide 24 (21-32) mmol/L BUN 8 (6-23) mg/dl Creatinine 0.79 (0.6-1.4) mg/dl Glucose 92 (70-99(Fasting)) mg/dl Calcium 8.8 (8.6-10.3) mg/dl Intake and Output 02/06/23 02/07/23 02/07/23 22:59 06:59 14:59 Intake Total 370 / 670 0 / 670 350 / 350 Output Total 901 / 1501 600 / 1501 1525 / 1525 Balance -531 / -831 -600 / -831 -1175 / -1175 Intake: IV 70 / 70 cefTRIAXone SODIUM 2,000 mg In 70 / 70 Dextrose 5% 50 ml @ 100 mls/hr IV Q24H [facility] Rx#:[id number] Oral 300 / 600 0 / 600 350 / 350 Output: Urine 900 / 1500 600 / 1500 1525 / 1525 # Bowel Movements Other: Weight 147 kg Medications Administered Current Inpatient Medications Acetaminophen (Acetaminophen 325 Mg Tab) 650 mg PO Q4H PRN PRN Reason: Pain or Fever Stop: 03/06/23 00:19 Last Admin: 02/05/23 22:36 Dose: 650 mg Enoxaparin Sodium (Enoxaparin Inj 40 Mg/0.4 Ml Syr) 40 mg SQ BID [facility]TE Stop: 03/09/23 09:44 Last Admin: 02/07/23 10:52 Dose: 40 mg Ceftriaxone Sodium 2,000 mg/ (Dextrose) 70 mls @ 100 mls/hr IV Q24H JANETTE; Protocol Stop: 02/14/23 20:59 Last Infusion: 02/06/23 21:33 Dose: Infused Nitroglycerin (Nitroglycerin Sl 0.4 Mg/Tab Tab) 0.4 mg SL Q5M PRN PRN Reason: Chest Pain Stop: 03/06/23 00:19
--- NOTE | 2023-02-07 07:26 | Critical Care Progress Note ---
Date of Service February 07, 2023 Assessment & Plan (1) Lyme carditis: Plan: Reason critically ill: Patient is a 27 yo here with no significant PMH who presented with SOB and chest tightness x1 day and who was admitted for lyme carditis associated with AV block. 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 s/p temporary transvenous pacemaker placed 02/05 - pt remains asymptomatic - previously on dopamine gtt to maintain HR >60; has been off since 02/05 - decreased pacemaker backup rate to 50 02/06; pt's intrinsic rate appears to be ~45-48- will discuss further pacemaker changes with cardiology - maintain external pacer pads, continue tele monitoring Respiratory: No acute concerns GI: No acute concerns - regular diet - no GI ppx necessary Renal/electrolytes: No significant electrolyte derangement or renal function concerns - replace electrolytes as needed : No acute concerns Endo: No chronic or acute concerns Heme: Leukocytosis- resolved - stable Hgb and Hct ID: Lyme disease w/ associated carditis - pt currently on IV ceftriaxone (day 4) - continue IV ABX until AV block resolves/DE <300 ms then will switch to PO for total course of 21 days Integumentary: Erythema migrans secondary to lyme disease- resolved Lines/IV access: - PIVs intact DVT ppx: - lovenox BID Please refer to Dr. Gasca's documentation for any further recommendations. (2) Heart block: (3) Temporary transvenous cardiac pacemaker present: Admission and Anticipated Discharge Date Admission Date: February 03, 2023 Supervising Physician Co-Signing Physician Notes Patient seen and examined. EMR reviewed. Discussed on multidisciplinary rounds and with bedside critical care nurse as well as with family practice resident. Agree with assessment plan as noted. Patient appears to be slowly improving. When his temporary pacing wire was positive this morning he appeared to have a sinus bradycardia rhythm with heart rates in the 45-50 range. He remained asymptomatic. We will continue IV Rocephin until his conduction abnormalities have resolved. Will defer to cardiology decisions on causing his pacing wire and ultimately discontinuation of the wire. We will keep on bedrest until the pacing wire is out. We will start prophylactic Lovenox given his immobility. Discussed with patient at bedside. Subjective Pt feels well today. No new complaints. He was out of bed once yesterday to go to that bathroom and did not feel SOB, lightheaded, or chest tightness. Review of Systems Review of Systems: As per HPI Physical Exam Physical Exam: Constitutional: well appearing, no acute distress HEENT: normocephalic, no conjunctival injection CV: regular rhythm, bradycardic, no murmur Respiratory: Clear to auscultation bilaterally. No rhonchi, wheezes, or crackles. No increased work of breathing GI: soft, nondistended, nontender MSK: no gross deformities noted Skin: warm, dry, no rashes Neuro: alert, oriented, no FND noted Results & Data Results & Data Vital Signs (Past 12 Hours) Vital Signs Pulse Resp BP Pulse Ox Pulse Ox 02/07/23 00:01 139/61 02/07/23 00:01 52 L 18 94 02/07/23 00:00 52 L 25 H 95 02/06/23 23:00 50 L 20 97 02/06/23 23:00 133/60 02/06/23 22:01 51 L 24 96 02/06/23 22:01 129/62 02/06/23 22:00 50 L 24 96 02/06/23 21:01 138/63 02/06/23 21:01 50 L 20 98 02/06/23 21:00 50 L 24 96 02/06/23 20:01 50 L 26 H 98 02/06/23 20:01 147/49 H 02/06/23 20:00 50 L 25 H 98 02/07/23 00:00 99 Resident Activity Tracking Resident Involvement: Resident Care Provided Care Provided: Adult Hospital Medicine (ICU)
--- NOTE | 2023-02-07 07:32 | Hospitalist Progress Note ---
Date of Service February 07, 2023 Assessment & Plan (1) Heart block: (2) Lyme carditis: Plan: Lyme carditis Heart block 27 yo M presents with shortness with exertion chest tightness and palpitations and EKG w/ heart block. ER discussed with the cardiology - Lyme carditis and pt's Lyme screen came back positive. Lyme carditis Lyme screen positive ECG c/e complete heart block w/junctional rhythm started on IV Rocephin and Doxy on admission, will continue D-dimer is elevated but CT chest unremarkable Mild elevation of troponin most likely demand ischemia we will follow serial enzymes and echocardiogram Echo obtained -mild concentric LVH. LV wall motion is abnormal. LVEF 55 to 60%. RV is normal in size and function. There is no pericardial effusion. There is no significant valvular disease. PADs placed in the event of emergent need for transcutaneous pacing Atropine at bedside Limited ambulation Keep K>4, Mag >2 02/05 Pt's HR down to 40s and so pt was transferred to ICU yesterday and started on dopamine overnight. Cardiology continues to follow closely. 02/06 Pt is s/p transvenous pacer placement yesterday. wean off dopamine. 02/07 Cont. w/ transven. pacer. dopamine off. Cont. IV ceftriaxone DVT prophylaxis SCDs, lovenox Full code Admission and Anticipated Discharge Date Admission Date: February 03, 2023 Subjective Pt seen in follow up of lyme carditis , complete heart block Currently laying in bed in NAD + transvenous pacer denies any chest pain, shortness of breath, palpitations at this time. No dizziness. Pt's present at the bedside and updated. Review of Systems Review of Systems: All systems reviewed & are unremarkable except as noted in Subjective Physical Exam Physical Exam: LGeneral- young obe se M in NAD Head- atraumatic Eyes - PERRLA ENT- [place] pharynx clear Nec k- R IJ (transven ous pacer) Lungs- clear to ausculta tion and percussio n, no added sounds Heart- regular r hythm; no murmur Abdomen- normal oni wel sounds, soft, nontender, no dist ension Extremitie s- no pretibial ed karine, no erythema s een Neuro- alert, oriented x 3; PER RL, no facial pal sy; no dysarthria; moves extremities . Skin- warm, +er ythematosus rash Results & Data Results & Data Vital Signs (Past 12 Hours) Vital Signs Pulse Resp BP Pulse Ox Pulse Ox 02/07/23 00:01 139/61 02/07/23 00:01 52 L 18 94 02/07/23 00:00 52 L 25 H 95 02/06/23 23:00 50 L 20 97 02/06/23 23:00 133/60 02/06/23 22:01 51 L 24 96 02/06/23 22:01 129/62 02/06/23 22:00 50 L 24 96 02/06/23 21:01 138/63 02/06/23 21:01 50 L 20 98 02/06/23 21:00 50 L 24 96 02/06/23 20:01 50 L 26 H 98 02/06/23 20:01 147/49 H 02/06/23 20:00 50 L 25 H 98 02/07/23 00:00 99 Laboratory Results 02/07/23 02/07/23 02/03/23 Range/Units 04:07 04:06 17:50 WBC 7.59 (4.8-10.8) K/ul RBC 4.13 L (4.70-6.10) M/uL Hgb 12.0 L (14.0-18.0) g/dl Hct 35.7 L (42.0-52.0) % MCV 86.4 (80.0-100.0) fL MCH 29.1 (25.0-34.0) pg MCHC 33.6 (32.0-36.0) g/dL RDW Std Deviation 39.3 (36.4-46.3) fL RDW Coeff of Debby 12.5 (11.5-14.5) % Plt Count 201 (130-400) K/uL MPV 10.0 (9.4-12.4) fL Immature Gran % (Auto) 0.4 % Neut % (Auto) 54.7 % Lymph % (Auto) 36.1 % [place] % (Auto) 6.3 % Eos % (Auto) 2.1 % Baso % (Auto) 0.4 % Neut # (Auto) 4.15 (1.40-6.50) K/uL Lymph # (Auto) 2.74 (1.2-3.4) K/uL [place] # (Auto) 0.48 (0.11-0.59) K/uL Eos # (Auto) 0.16 (0-0.50) K/uL Baso # (Auto) 0.03 (0-0.2) K/uL Immature Gran # (Auto) 0.03 (0.01-0.20) K/uL Sodium 139 (136-145) mmol/L Potassium 4.3 (3.5-5.1) mmol/L Chloride 109 H (98-107) mmol/L Carbon Dioxide 24 (21-32) mmol/L Anion Gap 6 (3-11) BUN 8 (6-23) mg/dl Creatinine 0.79 (0.6-1.4) mg/dl Est Cr Clr Drug Dosing 212.6 ml/min Est GFR ( Amer) 144.7 ml/min Est GFR (Non-Af Amer) 124.8 ml/min BUN/Creatinine Ratio 10.1 (10-20) Glucose 92 (70-99(Fasting)) mg/dl Calcium 8.8 (8.6-10.3) mg/dl Magnesium 2.0 (1.7-2.4) mg/dl Lyme IgG (Western Blot) NEGATIVE (NEGATIVE) Lyme IgG 18 kDa Band NON-REACTIVE Lyme IgG 23 kDa Band NON-REACTIVE Lyme IgG 28 kDa Band NON-REACTIVE Lyme IgG 30 kDa Band NON-REACTIVE Lyme IgG 39 kDa Band NON-REACTIVE Lyme IgG 41 kDa Band REACTIVE A Lyme IgG 45 kDa Band NON-REACTIVE Lyme IgG 58 kDa Band REACTIVE A Lyme IgG 66 kDa Band NON-REACTIVE Lyme IgG 93 kDa Band NON-REACTIVE Lyme IgM Ab (WB) POSITIVE A (NEGATIVE) Lyme IgM 23 kDa Band REACTIVE A Lyme IgM 39 kDa Band REACTIVE A Lyme IgM 41 kDa Band REACTIVE A Medications Administered Current Inpatient Medications Acetaminophen (Acetaminophen 325 Mg Tab) 650 mg PO Q4H PRN PRN Reason: Pain or Fever Stop: 03/06/23 00:19 Last Admin: 02/05/23 22:36 Dose: 650 mg Ceftriaxone Sodium 2,000 mg/ (Dextrose) 70 mls @ 100 mls/hr IV Q24H JANETTE; Protocol Stop: 02/14/23 20:59 Last Infusion: 02/06/23 21:33 Dose: Infused Nitroglycerin (Nitroglycerin Sl 0.4 Mg/Tab Tab) 0.4 mg SL Q5M PRN PRN Reason: Chest Pain Stop: 03/06/23 00:19
[2023-02-07] MEDS: ENOXAPARIN INJ 40 MG/0.4 ML SYR SQ SCH ×2 (10:52→20:52)
--- NOTE | 2023-02-07 11:59 | Billing Data ---
Date of Service February 07, 2023 Coding Level of Care Code 25165 SUB INP/OBS CARE
--- NOTE | 2023-02-07 17:37 | Electrocardiogram Report ---
Test Reason : Blood Pressure : / mmHG Vent. Rate : 066 BPM Atrial Rate : 119 BPM P-R Int : 000 ms QRS Dur : 096 ms QT Int : 390 ms P-R-T Axes : 000 018 -08 degrees QTc Int : 408 ms Sinus rhythm with complete heart block Confirmed by Chase Neves ([id number] on 02/07/2023 5:37:32 PM Referred By: REFERRED SELF Confirmed By:Catracho Neves
--- NOTE | 2023-02-07 17:38 | Electrocardiogram Report ---
Test Reason : Blood Pressure : / mmHG Vent. Rate : 062 BPM Atrial Rate : 124 BPM P-R Int : 000 ms QRS Dur : 098 ms QT Int : 418 ms P-R-T Axes : 079 040 -27 degrees QTc Int : 424 ms Sinus tachycardia with high degree AV block T wave changes concerning for ischemia Confirmed by Chase Neves ([id number] on 02/07/2023 5:38:23 PM Referred By: REFERRED SELF Confirmed By:Catracho Neves
--- NOTE | 2023-02-07 17:39 | Electrocardiogram Report ---
Test Reason : Blood Pressure : / mmHG Vent. Rate : 054 BPM Atrial Rate : 054 BPM P-R Int : 270 ms QRS Dur : 098 ms QT Int : 450 ms P-R-T Axes : 062 021 -02 degrees QTc Int : 426 ms Sinus rhythm with possible 2:1 AV conduction and demand ventricular pacing Confirmed by Chase Neves ([id number] on 02/07/2023 5:39:37 PM Referred By: REFERRED SELF Confirmed By:Catracho Neves
[2023-02-07] MEDS: cefTRIAXone SODIUM 2,000 MG in DEXTROSE 5% 50 ML IV SCH (20:52)
[2023-02-08 05:27] LABS: Basophils # (auto) 0.03 K/uL (0-0.2); Basophils % (auto) 0.4 %; Eosinophils # (auto) 0.17 K/uL (0-0.50); Eosinophils % (auto) 2.4 %; Hematocrit (blood only) 37.7 % (42.0-52.0); Hemoglobin 12.6 g/dl (14.0-18.0); Immature Granulocytes # (auto) 0.02 K/uL (0.01-0.20); Immature Granulocytes % (auto) 0.3 %; Lymphocytes # (auto) 2.28 K/uL (1.2-3.4); Lymphocytes % (auto) 32.6 %; Mean Corpuscular Hemoglobin 28.8 pg (25.0-34.0); Mean Corpuscular Hgb Conc 33.4 g/dL (32.0-36.0); Mean Corpuscular Volume 86.1 fL (80.0-100.0); Mean Platelet Volume 9.8 fL (9.4-12.4); Monocytes # (auto) 0.44 K/uL (0.11-0.59); Monocytes % (auto) 6.3 %; Neutrophils # (auto) 4.05 K/uL (1.40-6.50); Platelet Count 226 K/uL (130-400); RDW Coefficient of Variation 12.4 % (11.5-14.5); RDW Standard Deviation 38.5 fL (36.4-46.3); Red Blood Count 4.38 M/uL (4.70-6.10); White Blood Count 6.99 K/ul (4.8-10.8)
[2023-02-08 05:28] LABS: BUN Creatinine Ratio 9.7 (10-20); Calcium 9.2 mg/dl (8.6-10.3); Creatinine Clr Calc Pharmacy 180.9 ml/min; Est GFR (African American) 131.8 ml/min; Est GFR (Non-African American) 113.7 ml/min; Potassium 4.5 mmol/L (3.5-5.1)
--- NOTE | 2023-02-08 07:50 | Cardiology Progress Note ---
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 Bradycardia EKG compatible with Complete Heart Block w/ junctional escape SBP is WNL No syncope Lyme IgM + Target lesion on back Plans for ABX to treat acute Lyme Disease ECHO - preliminary - no evidence of Cardiomyopathy of severe valvular pathology No evidence of Heart Failure No Pauses on Telemetry Transient support with Dopamine; Dopamine currently OFF Now with Temp Wire in place from RIJ Plans: * Continue ABX for Lyme infection * Pacing Pads in place in the event of emergent need for transcutaneous pacing * Atropine at bedside * Limited ambulation given complete heart block * DVT PPX * K+ goal 4.5-5 * Mag++ goal >2 * TSH - 0.9 - WNL * Dopamine (OFF) * Pacing wire in place - stable * Pacer set to 40 BPM - Pt captures at less than 1 mV * Rhythm now appears to be sinus with significant 1st degree AVB (P about 300 ms) * Pt's underlying HR now about 55 BPM- appears to still be in sinus with atrial bigeminy * Continue supportive care * Potential D/C of Temp wire in AM on 02/09/2023 if no pacing requirements overnight * Discussed plans with Family Surjit Srivastava (2) Heart block: Admission and Anticipated Discharge Date Admission Date: February 03, 2023 Supervising Physician Co-Signing Physician Notes Pt seen and evaluated with [facility] staff. Concur with observations and findings Surjit Srivastava Subjective Events Overnight: * Case D/W EP Service * Plans to start IV Steroids to reduce inflammation near/around AV Node Subjective: * No complaints Review of Systems Review of Systems: All systems reviewed & are unremarkable except as noted in HPI & below Physical Exam Physical Exam: Overweight man Mentation - WNL RIJ Pacer safely in place S1S2 no pericardial rub CTA B on anterior exam No C/C/E Results & Data Vital Signs (Past 12 Hours) Vital Signs Temp Pulse Resp BP Pulse Ox Pulse Ox O2 Del Method 02/08/23 06:01 145/73 H 02/08/23 06:01 74 21 94 02/08/23 06:00 67 19 94 02/08/23 05:30 69 21 91 02/08/23 05:01 66 21 93 02/08/23 05:01 152/75 H 02/08/23 05:00 75 22 93 02/08/23 04:01 145/73 H 02/08/23 03:01 160/71 H 02/08/23 03:58 36.7 C 02/08/23 02:30 77 20 93 02/08/23 02:01 80 21 92 02/08/23 02:01 146/76 H 02/08/23 02:00 79 22 92 02/08/23 01:30 58 L 20 94 02/08/23 01:01 155/62 H 02/08/23 01:01 70 21 95 02/08/23 01:00 69 22 94 02/08/23 00:00 77 20 94 02/08/23 00:00 151/80 H 02/07/23 23:00 69 18 94 02/07/23 23:00 154/76 H 02/07/23 22:00 72 17 98 02/07/23 22:00 148/73 H 02/07/23 21:00 77 20 98 02/07/23 21:00 142/59 H 02/07/23 20:01 72 24 96 02/07/23 20:01 146/67 H 02/07/23 20:01 146/67 H 02/07/23 20:00 78 21 96 02/08/23 00:00 71 02/08/23 00:00 94 Room Air 02/07/23 23:28 36.5 C Laboratory Results CBC 02/08/23 Range/Units 04:53 WBC 6.99 (4.8-10.8) K/ul RBC 4.38 L (4.70-6.10) M/uL Hgb 12.6 L (14.0-18.0) g/dl Hct 37.7 L (42.0-52.0) % Plt Count 226 (130-400) K/uL Neut # (Auto) 4.05 (1.40-6.50) K/uL Lymph # (Auto) 2.28 (1.2-3.4) K/uL [place] # (Auto) 0.44 (0.11-0.59) K/uL Eos # (Auto) 0.17 (0-0.50) K/uL Baso # (Auto) 0.03 (0-0.2) K/uL Comprehensive Metabolic Panel 02/08/23 Range/Units 04:53 Sodium 140 (136-145) mmol/L Potassium 4.5 (3.5-5.1) mmol/L Chloride 106 (98-107) mmol/L Carbon Dioxide 29 (21-32) mmol/L BUN 9 (6-23) mg/dl Creatinine 0.93 (0.6-1.4) mg/dl Glucose 88 (70-99(Fasting)) mg/dl Calcium 9.2 (8.6-10.3) mg/dl Intake and Output 02/07/23 02/08/23 02/08/23 22:59 06:59 14:59 Intake Total 70 / 1020 300 / 1020 Output Total 501 / 3626 900 / 3626 Balance -431 / -2606 -600 / -2606 Intake: IV 70 / 70 cefTRIAXone SODIUM 2,000 mg In 70 / 70 Dextrose 5% 50 ml @ 100 mls/hr IV Q24H [facility] Rx#:[id number] Oral 300 / 950 Output: Urine 500 / 3625 900 / 3625 # Bowel Movements Other: Weight 144.9 kg Weight Measurement Method Built in [facility] Medications Administered Current Inpatient Medications Acetaminophen (Acetaminophen 325 Mg Tab) 650 mg PO Q4H PRN PRN Reason: Pain or Fever Stop: 03/06/23 00:19 Last Admin: 02/05/23 22:36 Dose: 650 mg Enoxaparin Sodium (Enoxaparin Inj 40 Mg/0.4 Ml Syr) 40 mg SQ BID [facility] Stop: 03/09/23 09:44 Last Admin: 02/07/23 20:52 Dose: 40 mg Ceftriaxone Sodium 2,000 mg/ (Dextrose) 70 mls @ 100 mls/hr IV Q24H [facility]; Protocol Stop: 02/14/23 20:59 Last Infusion: 02/07/23 21:34 Dose: Infused Methylprednisolone 60 mg/ (Syringe) 0.96 mls @ 1.5 mls/min IV Q8H [facility] Stop: 03/10/23 07:14 Nitroglycerin (Nitroglycerin Sl 0.4 Mg/Tab Tab) 0.4 mg SL Q5M PRN PRN Reason: Chest Pain Stop: 03/06/23 00:19
--- NOTE | 2023-02-08 08:01 | Critical Care Progress Note ---
Date of Service February 08, 2023 Assessment & Plan (1) Lyme carditis: Plan: Reason critically ill: Patient is a 27 yo here with no significant PMH who presented with SOB and chest tightness x1 day and who was admitted for lyme carditis associated with AV block. 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 s/p temporary transvenous pacemaker placed 02/05 - pt remains asymptomatic - previously on dopamine gtt to maintain HR >60; has been off since 02/05 - pt's HR maintaining in 70s with 1st degree AV block; removal of temporary pacemaker per cardiology - maintain external pacer pads, continue tele monitoring Respiratory: No acute concerns GI: No acute concerns - regular diet - no GI ppx necessary Renal/electrolytes: No significant electrolyte derangement or renal function concerns - replace electrolytes as needed : No acute concerns Endo: No chronic or acute concerns Heme: Leukocytosis- resolved - stable Hgb and Hct ID: Lyme disease w/ associated carditis - pt s/p ceftriaxone (4 days); will begin PO cefuroxime BID x21 days total ABX Integumentary: Erythema migrans secondary to lyme disease- resolved Lines/IV access: - PIVs intact DVT ppx: - lovenox BID Please refer to Dr. Gasca's documentation for any further recommendations. (2) Heart block: (3) Temporary transvenous cardiac pacemaker present: Admission and Anticipated Discharge Date Admission Date: February 03, 2023 Supervising Physician Co-Signing Physician Notes Patient seen and examined. EMR reviewed. Discussed on multidisciplinary rounds as well as with cardiology and with family practice resident. Agree with assessment plan as noted above. The patient is no longer spaced. He does have a significant first-degree AV block. He has been initiated on steroids by cardiology. He remains hemodynamically stable. From my perspective, the temporary pacing wire can be removed but will defer to cardiology. Will also defer to them steroids. His critical care issues appear to have been resolved and at this point in time I think the critical care services can sign off. Feel free to contact us with questions or concerns Subjective Pt denies further cardiac sx this morning. Feeling well overall. No chest pain/tightness, SOB, or lightheadedness. Review of Systems Review of Systems: As per HPI Physical Exam Physical Exam: Constitutional: well appearing, no acute distress HEENT: normocephalic, no conjunctival injection CV: regular rhythm, regular rate, no murmur, no LE edema Respiratory: Clear to auscultation bilaterally. No rhonchi, wheezes, or crackles. No increased work of breathing MSK: no gross deformities noted Skin: warm, dry, no rashes Neuro: alert, oriented, no FND noted Results & Data Results & Data Vital Signs (Past 12 Hours) Vital Signs Temp Pulse Resp BP Pulse Ox Pulse Ox O2 Del Method 02/08/23 06:01 145/73 H 02/08/23 06:01 74 21 94 02/08/23 06:00 67 19 94 02/08/23 05:30 69 21 91 02/08/23 05:01 66 21 93 02/08/23 05:01 152/75 H 02/08/23 05:00 75 22 93 02/08/23 04:01 145/73 H 02/08/23 03:01 160/71 H 02/08/23 03:58 36.7 C 02/08/23 02:30 77 20 93 02/08/23 02:01 80 21 92 02/08/23 02:01 146/76 H 02/08/23 02:00 79 22 92 02/08/23 01:30 58 L 20 94 02/08/23 01:01 155/62 H 02/08/23 01:01 70 21 95 02/08/23 01:00 69 22 94 02/08/23 00:00 77 20 94 02/08/23 00:00 151/80 H 02/07/23 23:00 69 18 94 02/07/23 23:00 154/76 H 02/07/23 22:00 72 17 98 02/07/23 22:00 148/73 H 02/07/23 21:00 77 20 98 02/07/23 21:00 142/59 H 02/07/23 20:01 72 24 96 02/07/23 20:01 146/67 H 02/07/23 20:01 146/67 H 02/08/23 00:00 71 02/08/23 00:00 94 Room Air 02/07/23 23:28 36.5 C Resident Activity Tracking Resident Involvement: Resident Care Provided Care Provided: Adult Hospital Medicine (ICU)
[2023-02-08] MEDS: ENOXAPARIN INJ 40 MG/0.4 ML SYR SQ SCH ×2 (08:14→20:40)
[2023-02-08] MEDS: methylPREDNISolone 60 MG in SYRINGE 0 ML IV SCH ×3 (08:15→23:53)
--- NOTE | 2023-02-08 14:11 | Billing Data ---
Date of Service February 08, 2023 Coding Level of Care Code 82600 SUB INP/OBS CARE
--- NOTE | 2023-02-08 14:23 | Electrocardiogram Report ---
Test Reason : Blood Pressure : / mmHG Vent. Rate : 055 BPM Atrial Rate : 044 BPM P-R Int : 448 ms QRS Dur : 096 ms QT Int : 404 ms P-R-T Axes : 012 050 -27 degrees QTc Int : 386 ms Sinus rhythm with second degree AV block T wave abnormality, consider inferior ischemia Abnormal ECG When compared with ECG of 05-FEB-2023 15:11, Nonspecific T wave abnormality now evident in Anterolateral leads Confirmed by Chase Neves ([id number]) on 02/08/2023 2:23:27 PM Referred By: REFERRED SELF Confirmed By:Catracho Neves
[2023-02-08] MEDS: cefUROXime axetil 500 MG TAB PO SCH (20:40)
--- NOTE | 2023-02-08 20:41 | Hospitalist Progress Note ---
Date of Service February 08, 2023 delayed entry date of service noted above Assessment & Plan (1) Heart block: (2) Lyme carditis: Plan: Per previous attending notes with addendum Lyme carditis Heart block 27 yo M presents with shortness with exertion chest tightness and palpitations and EKG w/ heart block. ER discussed with the cardiology - Lyme carditis and pt's Lyme screen came back positive. Lyme carditis Lyme screen positive ECG c/e complete heart block w/junctional rhythm started on IV Rocephin and Doxy on admission, will continue D-dimer is elevated but CT chest unremarkable Mild elevation of troponin most likely demand ischemia we will follow serial enzymes and echocardiogram Echo obtained -mild concentric LVH. LV wall motion is abnormal. LVEF 55 to 60%. RV is normal in size and function. There is no pericardial effusion. There is no significant valvular disease. PADs placed in the event of emergent need for transcutaneous pacing Atropine at bedside Limited ambulation Keep K>4, Mag >2 02/08 hemodynamically stable no symptoms continued on PM wire Cardiology on board DVT prophylaxis SCDs, lovenox Full code Admission and Anticipated Discharge Date Admission Date: February 03, 2023 Subjective ff up for CHB, Lyme carditis, etc seen resting in bed, comfortable smiling states he feels fine overall no chest pain, dyspnea, palpitations, dizziness ambulating in the room with no problems no other symptoms Review of Systems Review of Systems: all noted and negative except for above Physical Exam Physical Exam: General- oriented x 3, not in distress, speaks in sentences with no effort or accessory muscle use Eyes- anicteric Neck- no JVD pacemaker wire site: no bleeding dizziness Lungs- clear breath sounds bilaterally, no rales/wheezes Heart- normal rate, regular rhythm; no murmurs Abdomen- normal bowel sounds, nondistended, soft, nontender Extremities- no pretibial edema, no calf tenderness Neuro- alert, oriented x 3; no gross focal neurologic deficits Skin- warm & dry Results & Data Results & Data Vital Signs (Past 12 Hours) Vital Signs Temp Pulse Pulse Resp BP BP Pulse Ox 02/08/23 18:01 86 19 93 02/08/23 18:01 127/110 H 02/08/23 18:00 86 24 92 02/08/23 17:01 79 23 92 02/08/23 17:01 163/85 H 02/08/23 17:00 88 31 H 92 02/08/23 16:01 88 32 H 92 02/08/23 16:01 160/70 H 02/08/23 16:00 81 20 94 02/08/23 15:00 90 18 96 02/08/23 15:00 157/79 H 02/08/23 16:00 87 02/08/23 16:00 36.9 C 87 20 160/70 H 93 02/08/23 14:00 79 26 H 90 02/08/23 13:01 67 27 H 92 02/08/23 13:01 160/82 H 02/08/23 13:00 87 18 94 02/08/23 12:01 146/74 H 02/08/23 12:01 77 30 H 95 02/08/23 12:00 90 23 93 02/08/23 11:30 82 18 93 02/08/23 11:01 68 23 91 02/08/23 11:01 155/75 H 02/08/23 11:00 62 24 94 02/08/23 10:00 76 23 94 02/08/23 10:00 154/81 H 02/08/23 09:01 81 25 H 94 02/08/23 09:01 156/80 H 02/08/23 09:00 83 18 93 02/08/23 09:27 36.7 C 71 18 156/80 H 97 O2 Del Method 02/08/23 18:01 02/08/23 18:01 02/08/23 18:00 02/08/23 17:01 02/08/23 17:01 02/08/23 17:00 02/08/23 16:01 02/08/23 16:01 02/08/23 16:00 02/08/23 15:00 02/08/23 15:00 02/08/23 16:00 02/08/23 16:00 Room Air 02/08/23 14:00 02/08/23 13:01 02/08/23 13:01 02/08/23 13:00 02/08/23 12:01 02/08/23 12:01 02/08/23 12:00 02/08/23 11:30 02/08/23 11:01 02/08/23 11:01 02/08/23 11:00 02/08/23 10:00 02/08/23 10:00 02/08/23 09:01 02/08/23 09:01 02/08/23 09:00 02/08/23 09:27 Room Air all noted and reviewed including below
--- NOTE | 2023-02-09 07:32 | Cardiology Progress Note ---
Date of Service February 09, 2023 Assessment & Plan (1) Lyme carditis: Plan: 27 yo man Bradycardia EKG compatible with Complete Heart Block w/ junctional escape SBP is WNL No syncope Lyme IgM + Target lesion on back Plans for ABX to treat acute Lyme Disease ECHO - preliminary - no evidence of Cardiomyopathy of severe valvular pathology No evidence of Heart Failure No Pauses on Telemetry Transient support with Dopamine; Dopamine currently OFF Now with Temp Wire in place from RIJ No need for backup pacing overnight Plans: * Continue ABX for Lyme infection * Pacing Pads in place in the event of emergent need for transcutaneous pacing * Atropine at bedside * Limited ambulation given complete heart block * DVT PPX * K+ goal 4.5-5 * Mag++ goal >2 * TSH - 0.9 - WNL * Dopamine (OFF) * Pacing wire in place - stable * Pacer set to 40 BPM - no pauses overnight, no pacing overnight * EKG with NSR - OK interval still prolonged at 300 ms * Plans to discontinue RIJ Pacing wire on 02/09/23 * Continue supportive care * Pt has been on DVT ppx Surjit Srivastava (2) Heart block: Admission and Anticipated Discharge Date Admission Date: February 03, 2023 Supervising Physician Co-Signing Physician Notes Pt seen and evaluated with [facility] staff. Concur with observations and plans Surjit Srivastava Subjective Events Overnight: * Case D/W EP Service * No pauses overnight Subjective: * No complaints Review of Systems Review of Systems: All systems reviewed & are unremarkable except as noted in HPI & below Physical Exam Physical Exam: Overweight man Mentation - WNL RIJ Pacer safely in place S1S2 no pericardial rub CTA B on anterior exam No C/C/E Results & Data Vital Signs (Past 12 Hours) Vital Signs Temp Pulse Resp BP Pulse Ox Pulse Ox O2 Del Method 02/09/23 02:01 151/61 H 02/09/23 02:00 67 23 90 02/09/23 01:00 69 21 93 02/09/23 01:00 168/69 H 02/09/23 00:00 63 20 93 02/09/23 00:00 154/67 H 02/08/23 23:00 70 23 93 02/08/23 23:00 149/70 H 02/09/23 00:00 92 Room Air 02/08/23 23:59 36.7 C 02/08/23 23:28 71 02/08/23 22:30 69 21 93 02/08/23 22:00 76 25 H 93 02/08/23 22:00 154/70 H 02/08/23 21:30 64 16 93 02/08/23 21:00 74 19 93 02/08/23 21:00 148/76 H 02/08/23 20:30 78 25 H 96 02/08/23 20:00 82 18 95 02/08/23 20:00 129/67 02/08/23 20:45 36.5 C Laboratory Results Intake and Output 02/08/23 02/09/23 02/09/23 22:59 06:59 14:59 Intake Total 800 / 950 150 / 950 Output Total 650 / 2075 350 / 2075 Balance 150 / -1125 -200 / -1125 Intake: Oral 800 / 950 150 / 950 Output: Urine 650 / 2075 350 / 2075 Other: Weight 143.8 kg Weight Measurement Method [facility] Medications Administered Current Inpatient Medications Acetaminophen (Acetaminophen 325 Mg Tab) 650 mg PO Q4H PRN PRN Reason: Pain or Fever Stop: 03/06/23 00:19 Last Admin: 02/05/23 22:36 Dose: 650 mg Cefuroxime Axetil (Cefuroxime Axetil 500 Mg Tab) 500 mg PO BID [facility] Stop: 02/18/23 20:59 Last Admin: 02/08/23 20:40 Dose: 500 mg Enoxaparin Sodium (Enoxaparin Inj 40 Mg/0.4 Ml Syr) 40 mg SQ BID [facility] Stop: 03/09/23 09:44 Last Admin: 02/08/23 20:40 Dose: 40 mg Methylprednisolone 60 mg/ (Syringe) 0.96 mls @ 1.5 mls/min IV Q8H [facility] Stop: 03/10/23 07:14 Last Admin: 02/08/23 23:53 Dose: 1.5 mls/min Nitroglycerin (Nitroglycerin Sl 0.4 Mg/Tab Tab) 0.4 mg SL Q5M PRN PRN Reason: Chest Pain Stop: 03/06/23 00:19
[2023-02-09] MEDS: methylPREDNISolone 60 MG in SYRINGE 0 ML IV SCH ×2 (08:27→16:05)
[2023-02-09] MEDS: cefUROXime axetil 500 MG TAB PO SCH ×2 (08:27→21:07)
[2023-02-09] MEDS: ENOXAPARIN INJ 40 MG/0.4 ML SYR SQ SCH ×2 (08:27→21:08)
--- NOTE | 2023-02-09 10:46 | Critical Care Progress Note ---
Date of Service February 09, 2023 Assessment & Plan (1) Lyme carditis: Plan: Reason critically ill: Patient is a 27 yo here with no significant PMH who presented with SOB and chest tightness x1 day and who was admitted for lyme carditis associated with AV block. He has a pacing wire in place but has not required pacing in over 48 hours Recommendations: 1. High degree AV block: Status post temporary pacing wire. His conduction system appears to be improving significantly. He has not required pacing in over 48 hours. He does have a first-degree AV block. I think the pacing wire can be removed and discussed with cardiology yesterday. Will defer to them d ecisions on duration/need for steroids. Okay to transition to oral antibiotics with an additional 21 days treatment. From a critical care standpoint, the patient is stable. Critical care will sign off. Feel free to contact us with questions or concerns. (2) Heart block: (3) Temporary transvenous cardiac pacemaker present: Admission and Anticipated Discharge Date Admission Date: February 03, 2023 Subjective Patient seen and examined. EMR reviewed. Discussed with bedside critical care nurse and on multidisciplinary rounds. The patient is awake alert conversant. No distress. He has no complaints. Review of Systems Review of Systems: All systems reviewed & are unremarkable except as noted in Subjective Physical Exam Constitutional: WD/WN, vitals as above Neck: trachea midline, no thyromegaly Respiratory: normal respiratory effort, lungs clear to auscultation Cardiovascular: RRR, no murmur, no edema Gastrointestinal (Abdomen): normal bowel sounds, soft, nontender, no hepatosplenomegaly Musculoskeletal: Extremities: extremities normal to inspection Skin: no rashes, warm and dry Neurologic: Nonfocal exam Lymphatic: no cervical lymphadenopathy Results & Data Results & Data Vital Signs (Past 12 Hours) Vital Signs Temp Pulse Pulse Resp BP BP Pulse Ox 02/09/23 08:35 36.6 C 75 20 153/63 H 95 02/09/23 08:18 02/09/23 08:18 77 02/09/23 02:01 151/61 H 02/09/23 02:00 67 23 90 02/09/23 01:00 69 21 93 02/09/23 01:00 168/69 H 02/09/23 00:00 63 20 93 02/09/23 00:00 154/67 H 02/08/23 23:00 70 23 93 02/08/23 23:00 149/70 H 02/09/23 00:00 02/08/23 23:59 36.7 C 02/08/23 23:28 71 Pulse Ox O2 Del Method O2 Del Method 02/09/23 08:35 Room Air 02/09/23 08:18 95 Room Air 02/09/23 08:18 02/09/23 02:01 02/09/23 02:00 02/09/23 01:00 02/09/23 01:00 02/09/23 00:00 02/09/23 00:00 02/08/23 23:00 02/08/23 23:00 02/09/23 00:00 92 Room Air 02/08/23 23:59 02/08/23 23:28 Laboratory Results 02/08/23 04:53 02/08/23 04:53 Coding Level of Care Code 95587 SUB INP/OBS CARE 2/35MIN Diagnoses Lyme carditis A69.29 Heart block I45.9 Temporary transvenous cardiac pacemaker present Z95.0
--- NOTE | 2023-02-09 17:09 | Electrocardiogram Report ---
Test Reason : Blood Pressure : / mmHG Vent. Rate : 071 BPM Atrial Rate : 071 BPM P-R Int : 302 ms QRS Dur : 096 ms QT Int : 404 ms P-R-T Axes : 016 035 -19 degrees QTc Int : 439 ms Sinus rhythm with 1st degree A-V block Nonspecific T wave abnormality Abnormal ECG Confirmed by Chase Neves ([id number]) on 02/09/2023 5:08:55 PM Referred By: REFERRED SELF Confirmed By:Catracho Neves
--- NOTE | 2023-02-09 17:28 | Hospitalist Progress Note ---
Date of Service February 09, 2023 Assessment & Plan (1) Heart block: (2) Lyme carditis: Plan: Per previous attending notes with addendum COMPLETE HEART BLOCK SECONDARY TO LYME CARDITIS 27 yo M presents with shortness with exertion chest tightness and palpitations and EKG w/ heart block. ER discussed with the cardiology - Lyme carditis and pt's Lyme screen came back positive. Lyme screen positive ECG c/e complete heart block w/junctional rhythm Echo obtained -mild concentric LVH. LV wall motion is abnormal. LVEF 55 to 60%. RV is normal in size and function. There is no pericardial effusion. There is no significant valvular disease. Blood Tester Fowl consulted Transferred to ICU for bradycardia in the 40s Placed on dopamine drip Pacemaker wire placed Heart rate improved Weaned off dopamine drip Pacemaker wire removed February 09, 2023 Continue to monitor closely Transition from IV ceftriaxone to p.o. 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 Status post removal of pacemaker wire Seen resting in bed, watching TV, good spirits States he feels good overall Denies palpitations, shortness of breath, chest pain, fevers or chills No other new symptom Review of Systems Review of Systems: all noted and negative except for above Physical Exam Physical Exam: General- oriented x 3, not in distress, speaks in sentences with no effort or accessory muscle use Eyes- anicteric Neck- no JVD No bleeding or discharge over the pacemaker wire insertion site Lungs- clear BS bilaterally, no rales/wheezes Heart- normal rate, regular rhythm; no murmurs Abdomen- normal bowel sounds, nondistended, soft, nontender Extremities- no pretibial edema, no calf tenderness Neuro- alert, oriented x 3; no gross focal neurologic deficits Skin- warm & dry Results & Data Results & Data Vital Signs (Past 12 Hours) Vital Signs Temp Pulse Pulse Resp BP BP Pulse Ox 02/09/23 15:01 71 24 02/09/23 15:01 160/70 H 98 02/09/23 15:00 74 21 02/09/23 14:01 67 25 H 02/09/23 14:01 147/71 H 02/09/23 14:00 75 22 02/09/23 13:01 77 22 02/09/23 13:01 163/64 H 02/09/23 13:00 79 26 H 02/09/23 12:01 165/65 H 02/09/23 12:01 72 18 02/09/23 12:00 72 22 02/09/23 11:00 73 25 H 02/09/23 11:00 160/71 H 02/09/23 10:01 82 19 93 02/09/23 10:01 137/52 L 02/09/23 10:00 72 17 96 02/09/23 09:01 68 22 95 02/09/23 09:01 164/62 H 02/09/23 09:00 73 24 95 02/09/23 08:35 36.6 C 75 20 153/63 H 95 02/09/23 08:18 02/09/23 08:18 77 Pulse Ox O2 Del Method O2 Del Method 02/09/23 15:01 02/09/23 15:01 Room Air 02/09/23 15:00 02/09/23 14:01 02/09/23 14:01 02/09/23 14:00 02/09/23 13:01 02/09/23 13:01 02/09/23 13:00 02/09/23 12:01 02/09/23 12:01 02/09/23 12:00 02/09/23 11:00 02/09/23 11:00 02/09/23 10:01 02/09/23 10:01 02/09/23 10:00 02/09/23 09:01 02/09/23 09:01 02/09/23 09:00 02/09/23 08:35 Room Air 02/09/23 08:18 95 Room Air 02/09/23 08:18 all noted and reviewed including below
--- NOTE | 2023-02-10 07:40 | Cardiology Progress Note ---
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 Bradycardia EKG compatible with Complete Heart Block w/ junctional escape SBP is WNL No syncope Lyme IgM + Target lesion on back Plans for ABX to treat acute Lyme Disease ECHO - preliminary - no evidence of Cardiomyopathy of severe valvular pathology No evidence of Heart Failure No Pauses on Telemetry Transient support with Dopamine; Dopamine currently OFF Now with Temp Wire in place from RIJ No need for backup pacing overnight Plans: * Continue ABX for Lyme infection * Pacing Pads in place in the event of emergent need for transcutaneous pacing * Atropine at bedside * Limited ambulation given complete heart block * DVT PPX * Check BMP (PENDING) * K+ goal 4.5-5 * Mag++ goal >2 * TSH - 0.9 - WNL * Dopamine (OFF) * Pacing wire removed - no complications noted * no pauses overnight, no pacing overnight * STOP Solumedrol * Start Prednisone taper (40 mg, 30 mg, 20mg, 10mg - off) * EKG with NSR * Check 12-lead EKG (PENDING) * Continue supportive care * Pt has been on DVT ppx * Pt ambulating * Plans for potential DC Home * Cardiology follow up being arranged for next week at [facility] * Advised that if he feels lightheaded - return to [facility] Surjit Srivastava (2) Heart block: Admission and Anticipated Discharge Date Admission Date: February 03, 2023 Supervising Physician Co-Signing Physician Notes Pt seen and evaluated with [facility] staff. Concur with observations and plans Surjit Srivastava Subjective Events overnight: * Temporary Pacemaker Removed * No complications * Connected with EP - steroids may taper Review of Systems Review of Systems: All systems reviewed & are unremarkable except as noted in HPI & below Physical Exam Physical Exam: Overweight man Mentation - WNL RIJ Pacer - out - bandaged S1S2 no pericardial rub CTA B on anterior exam No C/C/E Results & Data Vital Signs (Past 12 Hours) Vital Signs Pulse Resp BP Pulse Ox 02/10/23 06:00 47 L 21 02/10/23 05:01 46 L 21 02/10/23 05:01 144/73 H 02/10/23 05:00 46 L 21 02/10/23 04:01 46 L 14 02/10/23 04:01 155/61 H 02/10/23 04:00 45 L 24 02/10/23 03:00 47 L 15 02/10/23 03:00 142/82 H 02/10/23 02:01 42 L 18 02/10/23 02:01 129/61 02/10/23 02:00 48 L 23 02/10/23 01:01 141/68 H 02/10/23 01:01 48 L 18 02/10/23 01:00 52 L 19 02/10/23 00:01 53 L 18 02/10/23 00:01 130/58 L 02/10/23 00:00 55 L 18 02/09/23 23:30 51 L 17 02/09/23 23:01 135/66 02/09/23 23:01 48 L 24 02/09/23 23:00 52 L 24 02/09/23 22:30 56 L 23 02/09/23 22:01 53 L 21 02/09/23 22:01 160/64 H 02/09/23 22:00 57 L 22 02/09/23 21:30 54 L 27 H 02/09/23 21:01 128/69 02/09/23 21:01 59 L 24 96 02/09/23 21:00 51 L 16 99 02/09/23 20:30 56 L 24 96 02/09/23 20:01 141/59 H 02/09/23 20:01 56 L 27 H 97 02/09/23 20:00 55 L 22 99 Laboratory Results Intake and Output 02/09/23 02/10/23 02/10/23 22:59 06:59 14:59 Intake Total 240 / 360 120 / 360 Output Total 1300 / 2200 Balance -1060 / -1840 120 / -1840 aIntake: Oral 240 / 360 120 / 360 Output: Urine 1300 / 2200 Other: Weight 143.8 kg Medications Administered Current Inpatient Medications Acetaminophen (Acetaminophen 325 Mg Tab) 650 mg PO Q4H PRN PRN Reason: Pain or Fever Stop: 03/06/23 00:19 Last Admin: 02/05/23 22:36 Dose: 650 mg Cefuroxime Axetil (Cefuroxime Axetil 500 Mg Tab) 500 mg PO BID JANETTE Stop: 02/24/23 23:59 Last Admin: 02/09/23 21:07 Dose: 500 mg Enoxaparin Sodium (Enoxaparin Inj 40 Mg/0.4 Ml Syr) 40 mg SQ BID [facility] Stop: 03/09/23 09:44 Last Admin: 02/09/23 21:08 Dose: 40 mg Methylprednisolone 60 mg/ (Syringe) 0.96 mls @ 1.5 mls/min IV Q8H JANETTE Stop: 03/10/23 07:14 Last Admin: 02/10/23 00:00 Dose: 1.5 mls/min Nitroglycerin (Nitroglycerin Sl 0.4 Mg/Tab Tab) 0.4 mg SL Q5M PRN PRN Reason: Chest Pain Stop: 03/06/23 00:19
[2023-02-10] MEDS: methylPREDNISolone 60 MG in SYRINGE 0 ML IV SCH ×2 (07:56)
[2023-02-10] MEDS: ENOXAPARIN INJ 40 MG/0.4 ML SYR SQ SCH (08:01)
[2023-02-10] MEDS: cefUROXime axetil 500 MG TAB PO SCH (08:01)
[2023-02-10 11:23] LABS: BUN Creatinine Ratio 20.5 (10-20); Calcium 9.2 mg/dl (8.6-10.3); Creatinine Clr Calc Pharmacy 200.3 ml/min; Est GFR (African American) 141.7 ml/min; Est GFR (Non-African American) 122.3 ml/min; Magnesium 2.1 mg/dl (1.7-2.4); Potassium 4.4 mmol/L (3.5-5.1)
--- NOTE | 2023-02-10 15:11 | Hospitalist Progress Note ---
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 ER discussed with the cardiology - Lyme carditis and pt's Lyme screen came back positive. Lyme screen positive ECG c/e complete heart block w/junctional rhythm Echo obtained -mild concentric LVH. LV wall motion is abnormal. LVEF 55 to 60%. RV is normal in size and function. There is no pericardial effusion. There is no significant valvular disease. 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 twice daily x2 weeks to complete 21 days Advised to take probiotics daily Prednisone 40 mg x 1 day, 30 mg x 1 day, 20 mg x 1 day, 10 mg x 1 day, then stop Admission and Anticipated Discharge Date Admission Date: February 03, 2023 Subjective Follow-up for complete heart block, Lyme carditis, etc. Seen resting in bed, comfortable, not in distress In good spirits States he feels fine overall Denies chest pain, palpitations, dizziness, nausea Ambulating with no problems No fevers or chills No other symptoms States he is ready for discharge today Review of Systems Review of Systems: all noted and negative except for above Physical Exam Physical Exam: General- oriented x 3, not in distress, speaks in sentences with no effort or accessory muscle use Eyes- anicteric Neck- no JVD Pacemaker wire site: No bleeding or discharge, no hematoma Lungs- clear breath sounds bilaterally, no rales/wheezes Heart- normal rate, regular rhythm; no murmurs Abdomen- normal bowel sounds, nondistended, soft, nontender Extremities- no pretibial edema, no calf tenderness Neuro- alert, oriented x 3; no gross focal neurologic deficits Skin- warm & dry Results & Data Results & Data Vital Signs (Past 12 Hours) Vital Signs Temp Pulse Pulse Resp BP BP BP 02/10/23 12:15 36.4 C L 60 21 159/53 H 129/70 02/10/23 10:33 36.4 C L 60 21 129/70 02/10/23 09:12 60 02/10/23 08:33 36.9 C 02/10/23 08:00 49 L 28 H 02/10/23 08:00 153/72 H 02/10/23 07:01 150/64 H 02/10/23 07:00 54 L 21 02/10/23 06:00 47 L 21 02/10/23 05:01 46 L 21 02/10/23 05:01 144/73 H 02/10/23 05:00 46 L 21 02/10/23 04:01 46 L 14 02/10/23 04:01 155/61 H 02/10/23 04:00 45 L 24 Pulse Ox O2 Del Method 02/10/23 12:15 97 02/10/23 10:33 97 Room Air 02/10/23 09:12 02/10/23 08:33 99 Room Air 02/10/23 08:00 02/10/23 08:00 02/10/23 07:01 02/10/23 07:00 02/10/23 06:00 02/10/23 05:01 02/10/23 05:01 02/10/23 05:00 02/10/23 04:01 02/10/23 04:01 02/10/23 04:00 all noted and reviewed including below
--- NOTE | 2023-02-10 17:50 | Electrocardiogram Report ---
Test Reason : Blood Pressure : / mmHG Vent. Rate : 055 BPM Atrial Rate : 055 BPM P-R Int : 198 ms QRS Dur : 096 ms QT Int : 448 ms P-R-T Axes : 005 016 -06 degrees QTc Int : 428 ms Sinus bradycardia Nonspecific ST abnormality Abnormal ECG When compared with ECG of 09-FEB-2023 10:44, WI interval has decreased Nonspecific T wave abnormality has replaced inverted T waves in Anterior leads Confirmed by Chase Neves ([id number]) on 02/10/2023 5:49:32 PM Referred By: REFERRED SELF Confirmed By:Catracho Neves
--- NOTE | 2023-02-10 18:42 | Discharge Summary ---
Discharge Summary Date of Service February 10, 2023 Notes For Next Care Provider Medication Changes From Visit Cefuroxime 500 mg p.o. twice daily x2 weeks Prednisone 40 mg daily x1, 30 mg daily x1, 20 mg daily x1, 10 mg daily x5, then stop Admission HPI Per Admitting Provider 27-year-old male with no significant past medical history presents with shortness of breath on exertion, dizziness and chest tightness since yesterday. When he stays to ambulate he feels like he is heart is pounding. He had temp spike in the ER. Lyme screen came back positive. Patient denies any tick bites but [place] to [employer]. Denies any headache. Has some neck pain since yesterday. Vision is okay. No runny nose or sore throat or cough. No nausea. Appetite is okay. No abdominal pain. Normal bowel and bladder movements. Admission Exam Per Admitting Provider General- Not in distress Head- atraumatic Eyes- PERRLA ENT- oropharynx clear Neck- supple, no JVD, Lungs- clear to auscultation and percussion, no added sounds Heart- regular rhythm; no murmur, no gallop, Abdomen- normal bowel sounds, soft, nontender, no distension Extremities- no pretibial edema, no erythema seen Neuro- alert, oriented x 3; PERRL, no facial palsy; no dysarthria; moves extremities. 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 ER discussed with the cardiology - Lyme carditis and pt's Lyme screen came back positive. Lyme screen positive ECG c/e complete heart block w/junctional rhythm Echo obtained -mild concentric LVH. LV wall motion is abnormal. LVEF 55 to 60%. RV is normal in size and function. There is no pericardial effusion. T here is no significant valvular disease. 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 twice daily x2 weeks to complete 21 days Advised to take probiotics daily Prednisone 40 mg x 1 day, 30 mg x 1 day, 20 mg x 1 day, 10 mg x 1 day, then stop Discharge Exam General- oriented x 3, not in distress, speaks in sentences with no effort or accessory muscle use Eyes- anicteric Neck- no JVD Pacemaker wire site: No bleeding or discharge, no hematoma Lungs- clear breath sounds bilaterally, no rales/wheezes Heart- normal rate, regular rhythm; no murmurs Abdomen- normal bowel sounds, nondistended, soft, nontender Extremities- no pretibial edema, no calf tenderness Neuro- alert, oriented x 3; no gross focal neurologic deficits Skin- warm & dry Updated Medication List Medication Instructions Recorded Confirmed Type cefuroxime axetil 500 mg tablet 500 mg PO BID 14 days #28 tabs 02/10/23 Rx prednisone 10 mg tablet 10 mg PO UD #10 tabs 02/10/23 Rx Hospital Stay Data Consultations 02/03/23 21:56 ED Decision to Admit Stat 02/04/23 07:44 Consult Cardiology Routine 02/04/23 17:21 Consult Resident Assistant Routine Procedures Performed Operation Date: 02/05/23 16:00 Actual Procedures s Cineradiography w/Routine Exam - Bayron Kapadia MD s Ultrasound Vascular Access - Bayron Kapadia MD p Ins/RemTemporary Transvenous Pacer - Bayron Kapadia MD Diagnostic Imagining Performed Laboratory Results WBC 6.99 K/ul (4.8-10.8) 02/08/23 04:53 RBC 4.38 M/uL (4.70-6.10) L 02/08/23 04:53 Hgb 12.6 g/dl (14.0-18.0) L 02/08/23 04:53 Hct 37.7 % (42.0-52.0) L 02/08/23 04:53 MCV 86.1 fL (80.0-100.0) 02/08/23 04:53 MCH 28.8 pg (25.0-34.0) 02/08/23 04:53 MCHC 33.4 g/dL (32.0-36.0) 02/08/23 04:53 RDW Std Deviation 38.5 fL (36.4-46.3) 02/08/23 04:53 RDW Coeff of Debby 12.4 % (11.5-14.5) 02/08/23 04:53 Plt Count 226 K/uL (130-400) 02/08/23 04:53 MPV 9.8 fL (9.4-12.4) 02/08/23 04:53 Immature Gran % (Auto) 0.3 % 02/08/23 04:53 Neut % (Auto) 58.0 % 02/08/23 04:53 Lymph % (Auto) 32.6 % 02/08/23 04:53 Fannin % (Auto) 6.3 % 02/08/23 04:53 Eos % (Auto) 2.4 % 02/08/23 04:53 Baso % (Auto) 0.4 % 02/08/23 04:53 Neut # (Auto) 4.05 K/uL (1.40-6.50) 02/08/23 04:53 Lymph # (Auto) 2.28 K/uL (1.2-3.4) 02/08/23 04:53 Fannin # (Auto) 0.44 K/uL (0.11-0.59) 02/08/23 04:53 Eos # (Auto) 0.17 K/uL (0-0.50) 02/08/23 04:53 Baso # (Auto) 0.03 K/uL (0-0.2) 02/08/23 04:53 Immature Gran # (Auto) 0.02 K/uL (0.01-0.20) 02/08/23 04:53 PT 13.0 Seconds (9.0-12.0) H 02/03/23 17:50 INR 1.2 (0.9-1.1) H 02/03/23 17:50 APTT 28.9 Seconds (21.0-31.0) 02/03/23 17:50 PTT Ratio 1.0 02/03/23 17:50 D-Dimer 780 ug/L FEU (0-500) H* 02/03/23 17:50 Sodium 138 mmol/L (136-145) 02/10/23 10:35 Potassium 4.4 mmol/L (3.5-5.1) 02/10/23 10:35 Chloride 107 mmol/L (98-107) 02/10/23 10:35 Carbon Dioxide 25 mmol/L (21-32) 02/10/23 10:35 Anion Gap 6 (3-11) 02/10/23 10:35 BUN 17 mg/dl (6-23) 02/10/23 10:35 Creatinine 0.83 mg/dl (0.6-1.4) 02/10/23 10:35 Est Cr Clr Drug Dosing 200.3 ml/min 02/10/23 10:35 Est GFR ( Amer) 141.7 ml/min 02/10/23 10:35 Est GFR (Non-Af Amer) 122.3 ml/min 02/10/23 10:35 BUN/Creatinine Ratio 20.5 (10-20) H 02/10/23 10:35 Glucose 92 mg/dl (70-99(Fasting)) 02/10/23 10:35 Calcium 9.2 mg/dl (8.6-10.3) 02/10/23 10:35 Phosphorus 3.9 mg/dl (2.5-4.9) 02/06/23 04:21 Magnesium 2.1 mg/dl (1.7-2.4) 02/10/23 10:35 Total Bilirubin 1.5 mg/dl (0.2-1.0) H 02/03/23 17:50 AST 16 U/L (13-39) 02/03/23 17:50 ALT 24 U/L (7-52) 02/03/23 17:50 Alkaline Phosphatase 121 U/L (34-104) H 02/03/23 17:50 Troponin I High Sens 24.1 pg/ml (0-20) H 02/04/23 16:44 Total Protein 7.3 gm/dl (6.0-8.3) 02/03/23 17:50 Albumin 4.1 gm/dl (3.4-5.0) 02/03/23 17:50 Globulin 3.2 gm/dl (2.5-4.0) 02/03/23 17:50 Albumin/Globulin Ratio 1.3 (0.9-2) 02/03/23 17:50 TSH 0.937 uIu/ml (0.300-4.500) 02/04/23 11:08 Nasal Screen MRSA (PCR) Negative (Negative) 02/04/23 18:18 Lyme Disease IgG Ab Positive (Negative) A 02/03/23 17:50 Lyme IgG (Western Blot) NEGATIVE (NEGATIVE) 02/03/23 17:50 Lyme IgG 18 kDa Band NON-REACTIVE 02/03/23 17:50 Lyme IgG 23 kDa Band NON-REACTIVE 02/03/23 17:50 Lyme IgG 28 kDa Band NON-REACTIVE 02/03/23 17:50 Lyme IgG 30 kDa Band NON-REACTIVE 02/03/23 17:50 Lyme IgG 39 kDa Band NON-REACTIVE 02/03/23 17:50 Lyme IgG 41 kDa Band REACTIVE A 02/03/23 17:50 Lyme IgG 45 kDa Band NON-REACTIVE 02/03/23 17:50 Lyme IgG 58 kDa Band REACTIVE A 02/03/23 17:50 Lyme IgG 66 kDa Band NON-REACTIVE 02/03/23 17:50 Lyme IgG 93 kDa Band NON-REACTIVE 02/03/23 17:50 Lyme IgM Ab (WB) POSITIVE (NEGATIVE) A 02/03/23 17:50 Lyme Disease IgM Ab Positive (Negative) A 02/03/23 17:50 Lyme IgM 23 kDa Band REACTIVE A 02/03/23 17:50 Lyme IgM 39 kDa Band REACTIVE A 02/03/23 17:50 Lyme IgM 41 kDa Band REACTIVE A 02/03/23 17:50 SARS-CoV-2 (PCR) NEGATIVE (Negative) 02/03/23 18:42 Influenza Type A (PCR) Negative (Neg) 02/03/23 18:42 Influenza Type B (PCR) Negative (Neg) 02/03/23 18:42 RSV (RT-PCR) Negative (Neg) 02/03/23 18:42 Impressions Chest CTA 02/03/23 19:54 Exam(s): CTA CHEST IV Amt: 119ml EXAM: CT Angiography Chest With Intravenous Contrast CLINICAL HISTORY: Reason for exam: ro Pe. TECHNIQUE: Axial computed tomographic angiography images of the chest with intravenous contrast. CTDI is 28.14 mGy and DLP is 908.81 mGy-cm. Automated exposure control was utilized for the study. A dose lowering technique was utilized adhering to the principles of ALARA. MIP reconstructed images were created and reviewed. COMPARISON: No relevant prior studies available. FINDINGS: Pulmonary arteries: No evidence for pulmonary embolism. Aorta: No acute findings. No thoracic aortic aneurysm. Lungs: Expiratory lung volumes. Scattered ground-glass areas of attenuation are noted. No focal airspace consolidation. Pleural space: Unremarkable. No significant effusion. No pneumothorax. Heart: Unremarkable. No cardiomegaly. No significant pericardial effusion. Mediastinum: Trace residual thymic tissue noted. Bones/joints: No acute fracture. No dislocation. Soft tissues: Unremarkable. Lymph nodes: Unremarkable. No enlarged lymph nodes. IMPRESSION: 1. No evidence for pulmonary embolism. 2. Scattered ground-glass areas of attenuation are presumed subsegmental atelectasis and related to expiratory lung volumes. No focal airspace consolidation. No pleural effusion or pneumothorax. Electronically signed by: Salvatore Veronica MD 02/03/23 21:39 PM Chest X-Ray 02/05/23 17:38 XR chest 1V portable HISTORY: placement transvenous pacer COMPARISON: Chest 02/03/2023. FINDINGS: There are low lung volumes. No pneumothorax. The cardiac silhouette is mildly enlarged. There is mild central pulmonary vascular congestion without overt edema. Trace bilateral pleural effusions are noted. A right jugular pacemaker wire terminates in the expected location of the right ventricle. The lead appears intact. IMPRESSION: 1. A right jugular transvenous pacemaker appears intact. No pneumothorax. 2. Cardiomegaly with mild pulmonary vascular congestion and trace bilateral pleural effusions. ACT 112: Negative or not required by law. Electronically signed by: Carlos Lopez M.D. 02/05/2023 6:03 PM 02/03/23 19:54 CT angio chest PE protocol Stat 02/05/23 16:03 CL Cath Imgs for PACS use only Routine Pending Results Patient Have Any Pending Studies at Discharge: No Discharge Instructions Given to Patient (Per Discharging Provider) PLEASE REFER TO YOUR NEW MEDICATION LIST AND FOLLOW INSTRUCTIONS CAREFULLY. YOUR NEW MEDICATIONS INCLUDE: Cefuroxime-antibiotic for treatment of Lyme disease with heart involvement Prednisone-oral steroid also for Lyme disease with heart involvement Take a probiotic daily for 1 month to prevent diarrhea while taking cefuroxime. Please drink plenty of fluids. Stay well-hydrated. PLEASE CALL YOUR PRIMARY CARE PHYSICIAN OR RETURN TO THE ER IF WITH WORSENING OF SYMPTOMS, INCLUDING Dizziness, shortness of breath, chest pain, weakness, fevers, etc. FOLLOW UP WITH PRIMARY CARE PHYSICIAN OUTLINED ABOVE. FOLLOW-UP WITH R D ENGINEER OUTLINED ABOVE. Total Time Total Time Spent Total Time Spent (In Minutes): >30 minutes
[2023-02-11] MEDS ORDERED: predniSONE 20 MG TAB PO SCH (09:00)
== END 2023-02-10 12:49 | disposition home or self-care (01) | DRG 868 ==
LOC: ED 17:37 → 2S 22:51 → SUATTDRO 22:51 → 2S 23:45 → 1E 02-04 18:38 → 2S 02-10 09:11
DX: Z88.2 Allergy status to sulfonamides; A69.29 Other conditions associated with Lyme disease; Z82.49 Family history of ischemic heart disease and other diseases of the circulatory system; I31.8 Other specified diseases of pericardium; F17.210 Nicotine dependence, cigarettes, uncomplicated; I24.8 Other forms of acute ischemic heart disease; I44.2 Atrioventricular block, complete